=== PATIENT | female | born 1945 | race Caucasian/White ===

== ENCOUNTER 2016-04-25 22:08 | Observation (INO) | payer OTHER ==
[~2016-04-25 22:08] MED LIST: ACYC-1 PO; ANTISOL30 EACH EAR; ASPI81 PO; CALC600T10 PO; CORTIS10A RIGHT EAR; METO50 PO; SIMV20TA PO; TRAM50 PO; ZITH500T PO
[2016-04-25 22:19] VITALS: BP 122/66; PULSE 72; RESP 16; TEMP 98.6; O2SAT 97
[2016-04-25] MEDS ORDERED: MORPHINE SULFATE 4 MG/ML INJ IV PUSH ONE (22:45)
[2016-04-25] MEDS ORDERED: ONDANSETRON HCL 4 MG/2 ML VIAL IV PUSH ONE (22:45)
[2016-04-25] MEDS ORDERED: SODIUM CHLORID 0.9% 500 ML INJ 500 ML IV ONE (22:45)
[2016-04-25] MEDS ORDERED: DIATRIZOATE MEGLUM/DIATRIZOATE SOD 9 ML CUP ONE (22:54)
--- NOTE | 2016-04-25 22:56 | PD ---
HPI Chief Complaint: Fall Time Seen by Provider: 22:14 Travel History International Travel<30 days: No Contact w/Intl Traveler<30days: No Traveled to known affect area: No History of Present Illness HPI The patient is a 70-year-old female who presents emergency Department after syncopal episode. The patient states she felt "sick to my stomach", earlier today with nausea and was going to the bathroom to vomit, which she apparently had a syncopal episode. The family member states they saw the patient walking down the hallway, and that she fell forward, striking the right aspect of her abdomen and chest wall on the cooler, then falling to the ground. The patient did have a loss of consciousness that lasted for several seconds. The patient states she does not recall the events. She does complain of right chest wall pain and right rib pain, with mild nausea. The patient does have a history of multiple myeloma and is currently being treated by Dr. Espinosa for relapse of her multiple myeloma. She denies any headache, neck pain, or acute lower extremity pain. She does complain of chronic right leg pain. Symptoms are moderate, possibly exacerbated by pain and a syncopal episode. The patient denies any acute chest pain or shortness of breath. PFSH Past Medical History Arthritis: Yes (HANDS) Blood Disorders: No Cancer: Yes (skin, MULTILYNOMA) Cardiovascular Problems: No High Cholesterol: Yes Chemotherapy: Yes (REVLIMID ) Diabetes: Yes (BOARDER LINE) Diminished Hearing: No Endocrine: No Gastrointestinal Disorders: No Genitourinary: No Immune Disorder: No Implanted Vascular Access Dvce: No Musculoskeletal: Yes Neurologic: No Psychiatric: No Reproductive: No Respiratory: No Immunizations Current: No PNEUMOCCOCAL Vaccine (Year): 2 Menopausal: Yes : 3 Para: 3 Past Surgical History Joint Replacement: Yes (LEFT ELBOW PLATE) Neurologic Surgery: Yes Other Surgery: No Social History Alcohol Use: Yes (OCCASIONALLY WINE) Tobacco Use: No Substance Use: No Allergies-Medications (Allergen,Severity, Reaction): Coded Allergies: Penicillin (Verified Allergy, Severe, 04/25/16) Reported Meds & Prescriptions Reported Meds & Active Scripts Active Reported Zocor (Simvastatin) 20 Mg Tab 20 Mg PO DAILY Metoprolol Tartrate 50 Mg Tab 50 Mg PO BID Review of Systems Except as stated in HPI: all other systems reviewed are Neg General / Constitutional: No: Fever Cardiovascular: Positive: Chest Pain or Discomfort, Syncope Respiratory: No: Shortness of Breath Gastrointestinal: Positive: Nausea, Vomiting, Abdominal Pain Musculoskeletal: No: Weakness Neurologic: Positive: Syncope, No: Dizziness Hematologic/Lymphatic: Positive: Other (multiple myeloma) Physical Exam Narrative GENERAL: Awake, alert, pleasant 70-year-old female who appears her stated age and is in no acute respiratory distress. SKIN: Warm and dry. HEAD: Atraumatic. Normocephalic. EYES: No injection or drainage. ENT: No nasal bleeding or discharge. Mucous membranes pink and moist. NECK: Trachea midline. No JVD. CARDIOVASCULAR: Regular rate and rhythm. No murmur appreciated. Right chest wall is tender palpation. RESPIRATORY: No accessory muscle use. Clear to auscultation. Breath sounds equal bilaterally. GASTROINTESTINAL: Abdomen soft, obese, tender palpation right upper quadrant and right flank. MUSCULOSKELETAL: No obvious deformities. No clubbing. No cyanosis. No edema. Full range of motion of lower extremities. NEUROLOGICAL: Awake and alert. No obvious cranial nerve deficits. Motor grossly within normal limits. Normal speech. Nonfocal. PSYCHIATRIC: Appropriate mood and affect; insight and judgment normal. Data Data Last Documented VS Vital Signs Date Time Temp Pulse Resp B/P Pulse Ox O2 Delivery O2 Flow Rate FiO2 04/26/16 01:32 78 18 125/69 96 Nasal Cannula 2 04/25/16 22:19 98.6 Orders Complete Blood Count With Diff (04/25/16 22:37) Comprehensive Metabolic Panel (04/25/16 22:37) Ct Brain W/O Iv Contrast(Rout) (04/25/16 ) Chest, Single Ap (04/25/16 ) Urinalysis - C+S If Indicated (04/25/16 22:37) Morphine Inj (Morphine Inj) (04/25/16 22:45) Ondansetron Inj (Zofran Inj) (04/25/16 22:45) Sodium Chlorid 0.9% 500 Ml Inj (Ns 500 M (04/25/16 22:45) Oral Contrast - Adult (04/25/16 22:41) Diatrizoate Liq ( Gastroview Liq) (04/25/16 22:54) Electrocardiogram (04/25/16 ) Morphine Inj (Morphine Inj) (04/26/16 00:30) Morphine Inj (Morphine Inj) (04/26/16 00:30) Sodium Chlor 0.9% 1000 Ml Inj (Ns 1000 M (04/26/16 00:30) Ct Abd/Pel W/O Iv Contrast (04/25/16 ) Hydromorphone Pf Inj (Dilaudid Pf Inj) (04/26/16 01:30) Admit Order (Ed Use Only) (04/26/16 02:55) Place In Observation (04/26/16 ) Vital Signs (Adult) Q4H (04/26/16 02:53) Activity Oob With Assistance (04/26/16 02:53) Forensic Audit Expert / Telemetry .CONTINUOUS (04/26/16 02:53) Diet Heart Healthy (04/26/16 Breakfast) Sodium Chloride 0.9% Flush (Ns Flush) (04/26/16 03:00) Sodium Chloride 0.9% Flush (Ns Flush) (04/26/16 09:00) Basic Metabolic Panel (Bmp) (04/26/16 06:00) Enoxaparin Inj (Lovenox Inj) (04/26/16 09:00) Naloxone Inj (Narcan Inj) (04/26/16 03:00) Echo 2d Comp W/Dopp(Routine) (04/26/16 ) Us Carotid Arteries Comp Bilat (04/26/16 ) Labs Laboratory Tests Test 04/25/16 04/26/16 23:15 02:00 White Blood Count 7.5 TH/MM3 Red Blood Count 4.98 MIL/MM3 Hemoglobin 14.9 GM/DL Hematocrit 43.6 % Mean Corpuscular Volume 87.7 FL Mean Corpuscular Hemoglobin 29.9 PG Mean Corpuscular Hemoglobin 34.1 % Concent Red Cell Distribution Width 14.0 % Platelet Count 218 TH/MM3 Mean Platelet Volume 6.7 FL Neutrophils (%) (Auto) 63.5 % Lymphocytes (%) (Auto) 24.6 % Monocytes (%) (Auto) 7.4 % Eosinophils (%) (Auto) 3.7 % Basophils (%) (Auto) 0.8 % Neutrophils # (Auto) 4.7 TH/MM3 Lymphocytes # (Auto) 1.8 TH/MM3 Monocytes # (Auto) 0.6 TH/MM3 Eosinophils # (Auto) 0.3 TH/MM3 Basophils # (Auto) 0.1 TH/MM3 CBC Comment AUTO DIFF Differential Comment AUTO DIFF CONFIRMED Sodium Level 139 MEQ/L Potassium Level 5.7 MEQ/L Chloride Level 103 MEQ/L Carbon Dioxide Level 28.8 MEQ/L Anion Gap 7 MEQ/L Blood Urea Nitrogen 17 MG/DL Creatinine 0.86 MG/DL Estimat Glomerular Filtration 66 ML/MIN Rate Random Glucose 141 MG/DL Calcium Level 9.2 MG/DL Total Bilirubin 0.5 MG/DL Aspartate Amino Transf 63 U/L (AST/SGOT) Alanine Aminotransferase 45 U/L (ALT/SGPT) Alkaline Phosphatase 63 U/L Total Protein 7.9 GM/DL Albumin 4.1 GM/DL Urine Color LIGHT-YELLOW Urine Turbidity CLEAR Urine pH 6.5 Urine Specific [place] 1.011 Urine Protein NEG mg/dL Urine Glucose (UA) NEG mg/dL Urine Ketones NEG mg/dL Urine Occult Blood NEG Urine Nitrite NEG Urine Bilirubin NEG Urine Urobilinogen LESS THAN 2.0 MG/DL Urine Leukocyte Esterase NEG Urine RBC 1 /hpf Urine WBC LESS THAN 1 /hpf Urine Squamous Epithelial <1 /hpf Cells Microscopic Urinalysis Comment CATH-CULT NOT IND MDM Medical Decision Making Medical Screen Exam Complete: Yes Emergency Medical Condition: Yes Medical Record Reviewed: Yes Interpretation(s) EKG reveals normal sinus rhythm with a rate of 69. Q wave noted in lead 3. No evidence of WPW or Brugada. Differential Diagnosis Differential diagnosis includes syncopal episode, arrhythmia, vasovagal syncope , dehydration, neurocardiogenic syncope, rib fracture, pneumothorax, hemothorax , pelvic contusion, intra-abdominal injury. Narrative Course IV was established, labs are drawn and sent, and the patient was placed on cardiac telemetry monitoring and continuous pulse oximetry monitoring. EKG was ordered and interpreted. CT the brain and abdomen/pelvis were ordered. Chest x -ray was ordered. The patient was administered morphine, Zofran, and IV fluids. Labs are unremarkable except for potassium of 5.7, however, slight hemolysis was noted. Chest x-ray reveals questionable myeloma involving the fifth right rib. The patient required a second dose of pain medication, therefore, was given another dose of morphine with 1 L of IV fluids. The patient did have a syncopal episode, therefore, will need 23 hour observation for echocardiogram and telemetry monitoring. The patient was signed out to Dr. Whalen at [address] abdomen and pelvis pending. A CT abdomen and pelvis is negative for significant trauma patient can be admitted to the medical service. The patient has [employer] and is followed by Dr. Strange, therefore, should be 23 hour observation to [facility]. I did place a call to [facility] for 23 hour observation for syncope, prior to CT results. I signed the patient out to Dr. Whalen at [address] abdomen/pelvis as well as CT head results pending. He will follow-up on CT results and call consultants if necessary if there are any significant findings. I discussed the patient with Dr. Elaine at 1:05 AM, she will make the patient a [address] results are negative. Dr. Whalen was notified of this, it CTs are negative, a call will be placed to Dr. Elaine and the patient will be a 23 hour observation. Physician Communication Physician Communication A call was placed to [facility] for 23 hour observation. Diagnosis Primary Impression: Syncope Qualified Code: R55 - Syncope, unspecified syncope type Additional Impression: Right flank pain Admitting Information Admitting Physician Requests: Observation Condition: Stable Homero Forrest MD Apr 25, 2016 22:56
--- NOTE | 2016-04-25 23:01 | RADRPT ---
EXAM DATE/TIME: 04/25/2016 22:53 [facility] COMPARISON: CHEST SINGLE AP, January 17, 2012, 11:54. INDICATIONS : Pain from falling on floor and vomitting. MEDICAL HISTORY : Multiple myeloma. SURGICAL HISTORY : None. ENCOUNTER: Initial ACUITY: 1 day PAIN SCORE: 10/10 LOCATION: Right lower chest axillary. FINDINGS: The cardiac silhouette is enlarged in transverse diameter. The lungs are free of acute parenchymal op acity. No effusions are identified. There is an expansile lesion in the anterior right fifth rib whic h may reflect myeloma. CONCLUSION: 1. Cardiomegaly. No acute pulmonary disease. Possible myeloma involving the right fifth rib. Kevon Russell MD on April 25, 2016 at 22:58 Board Certified Radiologist. This report was verified electronically.
[2016-04-25 23:29] LABS: AUTOMATED NEUTROPHIL # 4.7 TH/MM3 (1.8-7.7); BASOPHIL # 0.1 TH/MM3 (0-0.2); BASOPHIL % 0.8 % (0.0-2.0); EOSINOPHIL # 0.3 TH/MM3 (0-0.4); EOSINOPHIL % 3.7 % (0.0-4.0); HEMATOCRIT 43.6 % (35.0-46.0); LYMPH % 24.6 % (9.0-44.0); LYMPHOCYTE # 1.8 TH/MM3 (1.0-4.8); MEAN CELL VOLUME 87.7 FL (80.0-100.0); MEAN CORPUSCULAR HEMOGLOBIN 29.9 PG (27.0-34.0); MEAN CORPUSCULAR HGB CONC 34.1 % (32.0-36.0); MONO % 7.4 % (0.0-8.0); NEUT % 63.5 % (16.0-70.0); PLATELET COUNT 218 TH/MM3 (150-450); RED BLOOD COUNT 4.98 MIL/MM3 (4.00-5.30); WHITE BLOOD COUNT 7.5 TH/MM3 (4.0-11.0)
[2016-04-25 23:46] LABS: HEMO FLAGS AUTO DIFF
[2016-04-25 23:51] LABS: ALKALINE PHOSPHATASE 63 U/L (45-117); TOTAL BILIRUBIN ADULT 0.5 MG/DL (0.2-1.0)
[2016-04-26] VITALS (14 sets, daily range): BP systolic 98–125; BP diastolic 55–78; PULSE 73–111; RESP 16–21; TEMP 97.4–98.7; O2SAT 89–98
[2016-04-26] LABS: ALT (GPT) 45 U/L (10-53); ANION GAP 7 MEQ/L (5-15); AST (GOT) 63 U/L (15-37); BICARBONATE 28.8 MEQ/L (21.0-32.0); BLOOD UREA NITROGEN 17 MG/DL (7-18); CHLORIDE 103 MEQ/L (98-107); GLOMERULAR FILTRATION RATE 66 ML/MIN (>89); SODIUM (NA) 139 MEQ/L (136-145)
[2016-04-26 00:18] LABS: POTASSIUM 5.7 MEQ/L (3.5-5.1)
[2016-04-26 00:24] LABS: SCAN/DIFF AUTO DIFF CONFIRMED
[2016-04-26] MEDS ORDERED: MORPHINE SULFATE 4 MG/ML INJ IV PUSH ONE ×2 (00:30)
[2016-04-26] MEDS ORDERED: SODIUM CHLOR 0.9% 1000 ML INJ 1,000 ML IV ONE (00:30)
[2016-04-26] MEDS ORDERED: ZOCO20TA PO (00:36)
[2016-04-26] MEDS ORDERED: METO50TA PO (00:36)
--- NOTE | 2016-04-26 01:08 | RADRPT ---
EXAM DATE/TIME: 04/26/2016 00:57 [facility] COMPARISON: No previous studies available for comparison. EXTERNAL COMPARISON : [facility], INDICATIONS : Trauma; fall. RADIATION DOSE: 62.08 CTDIvol (mGy) MEDICAL HISTORY : Hypercholesterolemia. Multiple myeloma SURGICAL HISTORY : Kyphoplasty. ENCOUNTER: Initial ACUITY: 1 day PAIN SCALE: 10/10 LOCATION: cranial TECHNIQUE: Multiple contiguous axial images were obtained of the head. Using automated exposure control and adj ustment of the mA and/or kV according to patient size, radiation dose was kept as low as reasonably a chievable to obtain optimal diagnostic quality images. FINDINGS: Noncontrast axial head CT demonstrates the ventricles to be normal in size and configuration with a n ormal sulcal pattern. No acute intracranial hemorrhage, acute cortical infarction, mass or midline sh ift is seen. Posterior fossa structures are unremarkable. Bone windows subcentimeter lucencies in the right calvarium which may reflect myeloma. CONCLUSION: 1. No evidence of acute intracranial pathology. No masses are identified. 2. Possible myeloma within the skull Kevon Russell MD on April 26, 2016 at 1:05 Board Certified Radiologist. This report was verified electronically.
[2016-04-26] MEDS ORDERED: HYDROmorphone HCL PF 1 MG/ML VIAL IV PUSH ONE (01:30)
--- NOTE | 2016-04-26 01:32 | RADRPT ---
EXAM DATE/TIME: 04/26/2016 01:01 [facility] COMPARISON: No previous studies available for comparison. EXTERNAL COMPARISON : [facility], INDICATIONS : Trauma; fall. Patient complains of right hip pain. ORAL CONTRAST: Prescribed oral contrast ingested. RADIATION DOSE: 21.31 CTDIvol (mGy) MEDICAL HISTORY : Hypercholesterolemia. Multiple myeloma SURGICAL HISTORY : Kyphoplasty. ENCOUNTER: Initial ACUITY: 1 day PAIN SCALE: 10/10 LOCATION: abdomen TECHNIQUE: Volumetric scanning of the abdomen and pelvis was performed. Using automated exposure control and ad justment of the mA and/or kV according to patient size, radiation dose was kept as low as reasonably achievable to obtain optimal diagnostic quality images. FINDINGS: Multiple calcified granulomas are present in the right lung. Calcified mediastinal nodes are also pre sent. The liver and spleen are normal in size and no focal defects are identified. There is a single stone within the gallbladder without wall thickening or pericholecystic fluid measuring 5 mm in the n lupe. The pancreas demonstrates no evidence of mass and there is no dilatation of the pancreatic duct. The adrenal glands and kidneys appear normal bilaterally. No hydronephrosis or mass lesions are iden tified. Examination of the pelvis demonstrates no evidence of free fluid or pelvic mass. No abnormally enlarg ed inguinal or retroperitoneal lymph nodes are present. The bladder is unremarkable. There is diverti culosis without evidence of diverticulitis. There is expansile lesion in the posterior aspect of the left eighth rib as well as lucencies in the L5 vertebral body and sclerosis in the T12 vertebral body characteristic of myeloma. Other old rib fr actures are also present. CONCLUSION: 1. No evidence of acute abdominal or pelvic process. No masses are identified. 2. Cholelithiasis 3. Findings of myeloma without acute fracture Kevon Russell MD on April 26, 2016 at 1:24 Board Certified Radiologist. This report was verified electronically.
[2016-04-26 02:26] LABS: BLOOD, URINE NEG (NEG); GLUCOSE,URINE NEG (NEG); KETONE, URINE NEG (NEG); NITRITE,URINE NEG (NEG); PH, URINE 6.5 (5.0-8.5); SQUAMOUS EPITHELIAL CELL URINE <1 /hpf (0-5); URINE COLOR LIGHT-YELLOW (YELLW/STRAW)
[2016-04-26 02:28] LABS: COMMENT (UR) CATH-CULT NOT IND; CULTURE IF INDICATED CATH CULTURE NOT IND
[2016-04-26] MEDS ORDERED: NALOXONE HCL 0.4 MG/ML AMP IV PRN (03:00)
[2016-04-26] MEDS ORDERED: SODIUM CHLORIDE 0.9% FLUSH 5 ML FLUSH FLUSH PRN (03:00)
--- NOTE | 2016-04-26 03:17 | PD ---
Data Data Last Documented VS Vital Signs Date Time Temp Pulse Resp B/P Pulse Ox O2 Delivery O2 Flow Rate FiO2 04/26/16 01:32 78 18 125/69 96 Nasal Cannula 2 04/25/16 22:19 98.6 Orders Complete Blood Count With Diff (04/25/16 22:37) Comprehensive Metabolic Panel (04/25/16 22:37) Ct Brain W/O Iv Contrast(Rout) (04/25/16 ) Chest, Single Ap (04/25/16 ) Urinalysis - C+S If Indicated (04/25/16 22:37) Morphine Inj (Morphine Inj) (04/25/16 22:45) Ondansetron Inj (Zofran Inj) (04/25/16 22:45) Sodium Chlorid 0.9% 500 Ml Inj (Ns 500 M (04/25/16 22:45) Oral Contrast - Adult (04/25/16 22:41) Diatrizoate Liq ( Gastroview Liq) (04/25/16 22:54) Electrocardiogram (04/25/16 ) Morphine Inj (Morphine Inj) (04/26/16 00:30) Morphine Inj (Morphine Inj) (04/26/16 00:30) Sodium Chlor 0.9% 1000 Ml Inj (Ns 1000 M (04/26/16 00:30) Ct Abd/Pel W/O Iv Contrast (04/25/16 ) Hydromorphone Pf Inj (Dilaudid Pf Inj) (04/26/16 01:30) Admit Order (Ed Use Only) (04/26/16 02:55) Place In Observation (04/26/16 ) Vital Signs (Adult) Q4H (04/26/16 02:53) Activity Oob With Assistance (04/26/16 02:53) Financial Services Agent / Telemetry .CONTINUOUS (04/26/16 02:53) Diet Heart Healthy (04/26/16 Breakfast) Sodium Chloride 0.9% Flush (Ns Flush) (04/26/16 03:00) Sodium Chloride 0.9% Flush (Ns Flush) (04/26/16 09:00) Basic Metabolic Panel (Bmp) (04/26/16 06:00) Enoxaparin Inj (Lovenox Inj) (04/26/16 09:00) Naloxone Inj (Narcan Inj) (04/26/16 03:00) Echo 2d Comp W/Dopp(Routine) (04/26/16 ) Us Carotid Arteries Comp Bilat (04/26/16 ) Labs Laboratory Tests Test 04/25/16 04/26/16 23:15 02:00 White Blood Count 7.5 TH/MM3 Red Blood Count 4.98 MIL/MM3 Hemoglobin 14.9 GM/DL Hematocrit 43.6 % Mean Corpuscular Volume 87.7 FL Mean Corpuscular Hemoglobin 29.9 PG Mean Corpuscular Hemoglobin 34.1 % Concent Red Cell Distribution Width 14.0 % Platelet Count 218 TH/MM3 Mean Platelet Volume 6.7 FL Neutrophils (%) (Auto) 63.5 % Lymphocytes (%) (Auto) 24.6 % Monocytes (%) (Auto) 7.4 % Eosinophils (%) (Auto) 3.7 % Basophils (%) (Auto) 0.8 % Neutrophils # (Auto) 4.7 TH/MM3 Lymphocytes # (Auto) 1.8 TH/MM3 Monocytes # (Auto) 0.6 TH/MM3 Eosinophils # (Auto) 0.3 TH/MM3 Basophils # (Auto) 0.1 TH/MM3 CBC Comment AUTO DIFF Differential Comment AUTO DIFF CONFIRMED Sodium Level 139 MEQ/L Potassium Level 5.7 MEQ/L Chloride Level 103 MEQ/L Carbon Dioxide Level 28.8 MEQ/L Anion Gap 7 MEQ/L Blood Urea Nitrogen 17 MG/DL Creatinine 0.86 MG/DL Estimat Glomerular Filtration 66 ML/MIN Rate Random Glucose 141 MG/DL Calcium Level 9.2 MG/DL Total Bilirubin 0.5 MG/DL Aspartate Amino Transf 63 U/L (AST/SGOT) Alanine Aminotransferase 45 U/L (ALT/SGPT) Alkaline Phosphatase 63 U/L Total Protein 7.9 GM/DL Albumin 4.1 GM/DL Urine Color LIGHT-YELLOW Urine Turbidity CLEAR Urine pH 6.5 Urine Specific [place] 1.011 Urine Protein NEG mg/dL Urine Glucose (UA) NEG mg/dL Urine Ketones NEG mg/dL Urine Occult Blood NEG Urine Nitrite NEG Urine Bilirubin NEG Urine Urobilinogen LESS THAN 2.0 MG/DL Urine Leukocyte Esterase NEG Urine RBC 1 /hpf Urine WBC LESS THAN 1 /hpf Urine Squamous Epithelial <1 /hpf Cells Microscopic Urinalysis Comment CATH-CULT NOT IND MDM Medical Record Reviewed: Yes Supervised Visit with KIERRA: No Narrative Course CBC & BMP Diagram 04/25/16 23:15 AST 63 LFTs otherwise normal Potassium 5.7 with hemolysis Last [address] 04/25/16 0000 Signed Impressions: Service Date/Time: Tuesday, April 26, 2016 00:57 - CONCLUSION: 1. No evidence of acute intracranial pathology. No masses are identified. 2. Possible myeloma within the skull Kevon Russell MD Chest X-Ray 04/25/16 0000 Signed Impressions: Service Date/Time: Monday, April 25, 2016 22:53 - CONCLUSION: 1. Cardiomegaly. No acute pulmonary disease. Possible myeloma involving the right fifth rib. Kevon Russell MD Abdomen/Pelvis CT 04/25/16 0000 Signed Impressions: Service Date/Time: Tuesday, April 26, 2016 01:01 - CONCLUSION: 1. No evidence of acute abdominal or pelvic process. No masses are identified. 2. Cholelithiasis 3. Findings of myeloma without acute fracture Kevon Russell MD Please refer to prior provider's documentation. Pt to be admitted d/w Dr Elaine. Diagnosis Primary Impression: Syncope Qualified Code: R55 - Syncope, unspecified syncope type Additional Impression: Right flank pain Admitting Information Admitting Physician Requests: Observation Condition: Stable Bill Whalen MD Apr 26, 2016 03:17
--- NOTE | 2016-04-26 08:56 | HHI.HP ---
[facility] Service [facility] Primary Care Physician Brianna Posey MD Admission Diagnosis Syncope, MM, Fall, R CP Diagnoses: Chief Complaint: syncope Travel History International Travel<30 Days: No Contact w/Intl Traveler <30 Da: No Traveled to Known Affected Are: No History of Present Illness 70-year-old female with history of multiple myeloma, arthritis, diet-controlled diabetes, hypertension, hyperlipidemia, and hx of PE s/p Warfarin, presents after syncopal episode. The patient reports yesterday she was out with girlfriends, had a glass of wine earlier in the day then also had a few cocktails at [employer], returned to the hotel, felt nauseous, went to the bathroom to vomit, then her friends saw her walking down the hallway to the bathroom when she fell forward and lost consciousness. The last the patient remembers is walking down the hallway then afterwards vomiting in the ambulance on her way to the ER. She reportedly hit her chest on a cooler. Denies hitting her head. Currently she complains of severe diffuse anterior chest pain, with difficulty breathing secondary to the pain, pain worsened by any palpation, movement, or deep inspiration. Denies any recent fevers/chills, cough, congestions. Denies any lightheadedness or dizziness. Since her arrival to the ER, she has been hypoxic with O2 sat 85% on room air, requiring 4L NC with O2 sat now 95%. She denies any history of asthma or COPD. The patient admits she is not taking deep breaths because of the pain. The patient reports a history of PE, was on Warfarin in the past. Denies history of CAD, MS, CHF. She has no other medical complaints at this time. Review of Systems Constitutional: DENIES: Fever, Chills, Dizziness Endocrine: DENIES: Polydipsia, Polyuria, Polyphagia Eyes: DENIES: Blurred vision, Diplopia, Double Vision Ears, nose, mouth, throat: DENIES: Ear Pain, Running Nose, Odynophagia Respiratory: COMPLAINS OF: Shortness of breath, DENIES: Cough, Wheezing Cardiovascular: COMPLAINS OF: Chest pain, Syncope, DENIES: Palpitations, Dyspnea on Exertion, Lower Extremity Edema Gastrointestinal: COMPLAINS OF: Nausea, Vomiting, DENIES: Abdominal pain, Constipation, Diarrhea Genitourinary: DENIES: Urinary frequency, Urgency, Dysuria Musculoskeletal: DENIES: Joint pain, Back pain, Neck pain Integumentary: DENIES: Abnormal pigmentation, Pruritus, Rash Hematologic/lymphatic: DENIES: Bruising, Lymphadenopathy Immunologic/allergic: DENIES: Eczema, Urticaria Neurologic: DENIES: Abnormal gait, Headache, Localized weakness Psychiatric: DENIES: Anxiety, Depression Past Family Social History Past Medical History multiple myeloma arthritis diet-controlled diabetes hypertension hyperlipidemia pulmonary embolism, completed treatment with Warfarin Past Surgical History left elbow plate Reported Medications Zocor (Simvastatin) 20 Mg Tab 20 Mg PO DAILY Metoprolol Tartrate 50 Mg Tab 50 Mg PO BID Allergies: Coded Allergies: Penicillin (Verified Allergy, Severe, 04/25/16) Active Ordered Medications Current Medications Medications (Trade) Dose Ordered Sig/Jess Route Start Time Stop Time Status Last Admin (NS Flush) 2 ml UNSCH PRN FLUSH 04/26/16 03:00 (NS Flush) 2 ml BID FLUSH 04/26/16 09:00 04/26/16 09:00 (Lovenox Inj) 40 mg Q24H SQ 04/26/16 09:00 (Narcan Inj) 0.4 mg UNSCH PRN IV 04/26/16 03:00 Family History Mother with uterine cancer Father with prostate cancer, heart disease started in his mid-50s Social History Drinks occasional wine/cocktails, not a daily drinker Denies any tobacco use Denies any illicit drug use Physical Exam Vital Signs Vital Signs Date Time Temp Pulse Resp B/P Pulse Ox O2 Delivery O2 Flow Rate FiO2 04/26/16 07:41 95 Nasal Cannula 4.00 04/26/16 07:29 97.4 73 18 108/59 89 04/26/16 06:09 97.8 74 21 115/66 98 04/26/16 03:59 89 18 117/78 98 Nasal Cannula 2 04/26/16 01:32 78 18 125/69 96 Nasal Cannula 2 04/26/16 00:23 73 16 104/58 98 Room Air 04/25/16 22:19 98.6 72 16 122/66 97 Physical Exam GENERAL: Well-nourished, well-developed pleasant female patient in [facility]. SKIN: Warm and dry. No rash. HEAD: Normocephalic. Atraumatic. EYES: Pupils equal and round. No scleral icterus. No injection or drainage. ENT: No nasal bleeding or discharge. Mucous membranes pink and moist. NECK: Supple. Trachea midline. CARDIOVASCULAR: Regular rate and rhythm. S1, S2 noted. No murmur appreciated. Diffuse anterior chest TTP. RESPIRATORY: No accessory muscle use. Clear to auscultation. Breath sounds equal bilaterally. GASTROINTESTINAL: Abdomen soft, non-tender, nondistended. Normoactive bowel sounds x4. MUSCULOSKELETAL: No obvious deformities. Extremities without clubbing, cyanosis , or edema. NEUROLOGICAL: Awake and alert. No obvious cranial nerve deficits. Motor grossly within normal limits. Normal speech. PSYCHIATRIC: Appropriate mood and affect; insight and judgment normal. Laboratory Laboratory Tests Test 04/25/16 04/26/16 23:15 02:00 White Blood Count 7.5 Red Blood Count 4.98 Hemoglobin 14.9 Hematocrit 43.6 Mean Corpuscular Volume 87.7 Mean Corpuscular Hemoglobin 29.9 Mean Corpuscular Hemoglobin 34.1 Concent Red Cell Distribution Width 14.0 Platelet Count 218 Mean Platelet Volume 6.7 Neutrophils (%) (Auto) 63.5 Lymphocytes (%) (Auto) 24.6 Monocytes (%) (Auto) 7.4 Eosinophils (%) (Auto) 3.7 Basophils (%) (Auto) 0.8 Neutrophils # (Auto) 4.7 Lymphocytes # (Auto) 1.8 Monocytes # (Auto) 0.6 Eosinophils # (Auto) 0.3 Basophils # (Auto) 0.1 CBC Comment AUTO DIFF Differential Comment AUTO DIFF CONFIRMED Sodium Level 139 Potassium Level 5.7 Chloride Level 103 Carbon Dioxide Level 28.8 Anion Gap 7 Blood Urea Nitrogen 17 Creatinine 0.86 Estimat Glomerular Filtration 66 Rate Random Glucose 141 Calcium Level 9.2 Total Bilirubin 0.5 Aspartate Amino Transf 63 (AST/SGOT) Alanine Aminotransferase 45 (ALT/SGPT) Alkaline Phosphatase 63 Total Protein 7.9 Albumin 4.1 Urine Color LIGHT-YELLOW Urine Turbidity CLEAR Urine pH 6.5 Urine Specific [place] 1.011 Urine Protein NEG Urine Glucose (UA) NEG Urine Ketones NEG Urine Occult Blood NEG Urine Nitrite NEG Urine Bilirubin NEG Urine Urobilinogen LESS THAN 2.0 Urine Leukocyte Esterase NEG Urine RBC 1 Urine WBC LESS THAN 1 Urine Squamous Epithelial <1 Cells Microscopic Urinalysis Comment CATH-CULT NOT IND Result Diagram: 04/25/16231404/25/162314 Imaging Last Impressions Ribs X-Ray 04/26/16 0000 Signed Impressions: Service Date/Time: Tuesday, April 26, 2016 08:24 - CONCLUSION: There are nonacute and substantially healed bilateral rib fractures as above. No perceptible acute rib fracture. No pneumothorax. Marc Leonardo MD Head CT 04/25/16 0000 Signed Impressions: Service Date/Time: Tuesday, April 26, 2016 00:57 - CONCLUSION: 1. No evidence of acute intracranial pathology. No masses are identified. 2. Possible myeloma within the skull Kevon Russell MD Chest X-Ray 04/25/16 0000 Signed Impressions: Service Date/Time: Monday, April 25, 2016 22:53 - CONCLUSION: 1. Cardiomegaly. No acute pulmonary disease. Possible myeloma involving the right fifth rib. Kevon Russell MD Abdomen/Pelvis CT 04/25/16 0000 Signed Impressions: Service Date/Time: Tuesday, April 26, 2016 01:01 - CONCLUSION: 1. No evidence of acute abdominal or pelvic process. No masses are identified. 2. Cholelithiasis 3. Findings of myeloma without acute fracture Kevon Russell MD Assessment and Plan Problem List: (1) Syncope ICD Code: R55 Status: Acute (2) Atypical chest pain ICD Code: R07.89 Status: Acute (3) Rib contusion ICD Code: S20.219A Status: Acute Assessment and Plan 70-year-old female with history of multiple myeloma, arthritis, diet-controlled diabetes, hypertension, hyperlipidemia, and hx of PE completed treatment with Warfarin, presents after syncopal episode on 04/25. Syncope: possibly related to alcohol intoxication however need to rule out other etiologies. Images reviewed: Head CT unremarkable. CXR with possible myeloma involving right 5th rib. Abd/pelvis CT with no acute findings. Check echocardiogram, Carotid U/S. Monitor on telemetry. Check orthostatics. Atypical Chest Pain: secondary to syncopal event as above, patient struck chest on cooler. Pain reproducible on exam. Rib xray with nonacute and substantially healed b/l rib fractures, no acute fractures. Pain control with [place] prn. Monitor on telemetry. Acute Hypoxic Respiratory Failure: O2 sat decreasing to 85% on room air, suspect secondary to poor inspiratory effort related to chest pain. Continue O2 for now, consider NRB if patient continues to desaturate. Duonebs q6h. Consider walk test tomorrow. With hx of PE, active multiple myeloma, chest pain, and hypoxia, will check CT-PA to rule out PE. Hyperkalemia: K 5.7, likely secondary to hemolysis. Repeat K 4.1. Resolved. Hypertension: chronic, continue patient's metoprolol. Hyperlipidemia: chronic, continue patient's statin. DVT Prophylaxis: teds/SCDs Written by Sailaja Sullivan, acting as scribe for Dr. Gill on 04/26/16 at 08:55. The documentation accurately reflects the work performed [id number] by me on at 08:55. Code Status Full Code Problem Qualifiers (1) Syncope: Qualified Code: R55 - Syncope, unspecified syncope type Sailaja Sullivan PA-C Apr 26, 2016 08:56 Lara Gill DO Apr 26, 2016 20:47
[2016-04-26] MEDS: RESP: ALBUTEROL 2.5 MG/IPRATROPIUM 0.5 MG NEB (SCH) NEB ×3 (08:59→20:39)
--- NOTE | 2016-04-26 08:59 | RADRPT ---
EXAM DATE/TIME: 04/26/2016 08:24 [facility] COMPARISON: CHEST SINGLE AP, April 25, 2016, 22:53. INDICATIONS : Bilateral rib pain post fall from standing height yesterday MEDICAL HISTORY : None. SURGICAL HISTORY : None. 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 I don't see an acute fracture. No pneumothorax is seen. CONCLUSION: There are nonacute and substantially healed bilateral rib fractures as above. No perceptible acute ri b fracture. No pneumothorax. Marc Leonardo MD on April 26, 2016 at 8:56 Board Certified Radiologist. This report was verified electronically.
[2016-04-26] MEDS: SODIUM CHLORIDE 0.9% FLUSH 5 ML FLUSH FLUSH SCH ×2 (09:00→21:09)
[2016-04-26] MEDS: ENOXAPARIN SODIUM 40 MG/0.4 ML SYRINGE SQ SCH (09:00)
[2016-04-26 10:34] LABS: BICARBONATE 27.9 MEQ/L (21.0-32.0); POTASSIUM 4.1 MEQ/L (3.5-5.1)
[2016-04-26] MEDS ORDERED: ACETAMINOPHEN 325 MG TAB PO PRN (12:45)
[2016-04-26] MEDS ORDERED: IOHEXOL 350 MG/ML 10 ML VIAL (for RAD DIAG) IV ONE (15:46)
--- NOTE | 2016-04-26 15:59 | EKG ---
Date Performed: 04/25/2016 Time Performed: 23:38:08 PTAGE: 70 years EKG: Sinus rhythm LOW QRS VOLTAGE IN PRECORDIAL LEADS When compared to previous tracing, QRS voltage is lower in Preco rdial leads, otherwise no significant change. BORDERLINE ECG PREVIOUS TRACING : 01/17/2012 12.13 DOCTOR: Mitchel Nicole Interpretating Date/Time 04/26/2016 15:57:08
--- NOTE | 2016-04-26 16:01 | RADRPT ---
EXAM DATE/TIME: 04/26/2016 15:39 [facility] COMPARISON: No previous studies available for comparison. INDICATIONS : Right side chest pain. IV CONTRAST: 75 cc Omnipaque 350 (iohexol) IV RADIATION DOSE: 23.01 CTDIvol (mGy) MEDICAL HISTORY : Diabetes mellitus type 2. Multiple myeloma, skin cancer. SURGICAL HISTORY : Kyphoplasty. ENCOUNTER: Initial ACUITY: 3 days PAIN SCALE: 5/10 LOCATION: Right chest TECHNIQUE: Volumetric scanning of the chest was performed using a pulmonary embolism protocol MIP images were re constructed. Using automated exposure control and adjustment of the mA and/or kV according to patien t size, radiation dose was kept as low as reasonably achievable to obtain optimal diagnostic quality images. FINDINGS: Contrast bolus is suboptimal but no central pulmonary emboli identified. There are several acute lower right anterior rib fractures in the area of chest pain. There is a heal ing left posterior rib fracture. Dependent atelectasis is present in both lungs. No significant pleural or pericardial effusion. No ad enopathy. No acute findings in the visualized upper abdomen. CONCLUSION: 1. Multiple acute right anterior rib fractures in the area of chest pain. Remote healing bilateral ri b fractures also present. 2. Contrast bolus suboptimal but no central pulmonary emboli identified. No effusions. Dependent atel ectasis in the lungs. Calcified granulomata in the lungs. Chase Steen MD on April 26, 2016 at 15:55 Board Certified Radiologist. This report was verified electronically.
[2016-04-26] MEDS: ACETAMINOPHEN/HYDROcodone 325 MG/7.5 MG TAB PO PRN (18:35)
--- NOTE | 2016-04-26 19:25 | RADRPT ---
EXAM DATE/TIME: 04/26/2016 17:41 [facility] COMPARISON: No previous studies available for comparison. INDICATIONS : Syncope. MEDICAL HISTORY : Hypercholesterolemia. Arthritis. Diabetes. Skin cancer. Chemotherapy. SURGICAL HISTORY : Kyphoplasty. Left elbow surgery. ENCOUNTER: Initial ACUITY: 1 day PAIN SCORE: 0/10 LOCATION: Bilateral neck PEAK SYSTOLIC VELOCITIES (cm/sec): ICA/CCA RATIO: Right: 1.4 Left: 1.0 ICA: Right: 163 Left: 143 CCA: Right: 117 Left: 139 ECA: Right: 141 Left: 112 VERTEBRAL: Right: 70 antegrade Left: 66 antegrade Elevated flow velocities and ICA/CCA ratios have been found to correlate with increased degrees of vessel stenosis, calculated as percentage of diameter relative to a normal segment of distal ICA/CCA FINDINGS: RIGHT CAROTID: No significant stenosis is visualized. The waveforms are within normal limits. LEFT CAROTID: No significant stenosis is visualized. The waveforms are within normal limits. VERTEBRAL ARTERIES: Antegrade flow is seen in both vertebral arteries. MISCELLANEOUS: None. CONCLUSION: 1. There is mild to moderate visible plaque formation around the carotid bifurcations. No hemodynamic ally significant stenosis. Vertebral artery flow antegrade bilaterally. Chase Steen MD on April 26, 2016 at 19:21 Board Certified Radiologist. This report was verified electronically.
[2016-04-26] MEDS: MELOXICAM 7.5 MG TAB PO SCH (21:09)
[2016-04-27] MEDS: ACETAMINOPHEN/HYDROcodone 325 MG/7.5 MG TAB PO PRN (00:29)
[2016-04-27 03:28] VITALS: BP 106/59; PULSE 71; RESP 19; TEMP 98.2; O2SAT 97
[2016-04-27] MEDS: RESP: ALBUTEROL 2.5 MG/IPRATROPIUM 0.5 MG NEB (SCH) NEB ×2 (07:47→14:10)
[2016-04-27 07:51] VITALS: O2SAT 91
[2016-04-27 07:55] VITALS: BP 130/60; PULSE 86; RESP 18; O2SAT 93
[2016-04-27 08:30] LABS: HDL CHOLESTEROL 64.3 MG/DL (40.0-60.0)
[2016-04-27] MEDS ORDERED: CYCLOBENZAPRINE HCL 10 MG TAB PO ONE (08:30)
--- NOTE | 2016-04-27 08:35 | HHI.PR ---
Subjective Remarks Follow up for syncope, fall, rib fractures. The patient reports continued pain at the right anterior chest with associated muscle spasms, requesting a muscle relaxer. The norco is also helping with the pain. The patient states she has intermittently been taking off her O2, currently O2 sat is 97% on 2L NC. She has been ambulating without assistance. She wants to go home. She has no other medical complaints at this time. The patient reports her old rib fractures were from tripping over a tree stump and falling 10years ago. Objective Vitals Vital Signs Date Time Temp Pulse Resp B/P Pulse Ox O2 Delivery O2 Flow Rate FiO2 04/27/16 07:55 86 18 130/60 93 04/27/16 07:51 91 21 04/27/16 03:28 98.2 71 19 106/59 97 04/26/16 21:23 109 107/58 119/59 120/67 04/26/16 21:10 111 94 04/26/16 21:00 94 Humidified 3.00 04/26/16 20:40 96 Nasal Cannula 3.00 04/26/16 20:10 96 04/26/16 19:52 103 04/26/16 19:28 98.2 103 19 106/58 93 04/26/16 17:03 98.7 104 18 119/55 93 04/26/16 10:44 97.6 81 18 98/56 95 I/O 04/26/16 04/26/16 04/26/16 04/27/16 04/27/16 04/27/16 07:00 15:00 23:00 07:00 15:00 23:00 Output Total 250 ml Balance -250 ml Output Urine Total 250 ml # Voids 1 5 Result Diagram: 04/25/16 2315 04/26/16 0945 Imaging Last Impressions Ribs X-Ray 04/26/16 0000 Signed Impressions: Service Date/Time: Tuesday, April 26, 2016 08:24 - CONCLUSION: There are nonacute and substantially healed bilateral rib fractures as above. No perceptible acute rib fracture. No pneumothorax. Marc Leonardo MD Carotid Artery Ultrasound 04/26/16 0000 Signed Impressions: Service Date/Time: Tuesday, April 26, 2016 17:41 - CONCLUSION: 1. There is mild to moderate visible plaque formation around the carotid bifurcations. No hemodynamically significant stenosis. Vertebral artery flow antegrade bilaterally. Chase Steen MD CT Angiography 04/26/16 0000 Signed Impressions: Service Date/Time: Tuesday, April 26, 2016 15:39 - CONCLUSION: 1. Multiple acute right anterior rib fractures in the area of chest pain. Remote healing bilateral rib fractures also present. 2. Contrast bolus suboptimal but no central pulmonary emboli identified. No effusions. Dependent atelectasis in the lungs. Calcified granulomata in the lungs. Chase Steen MD Head CT 04/25/16 0000 Signed Impressions: Service Date/Time: Tuesday, April 26, 2016 00:57 - CONCLUSION: 1. No evidence of acute intracranial pathology. No masses are identified. 2. Possible myeloma within the skull Kevon Russell MD Chest X-Ray 04/25/16 0000 Signed Impressions: Service Date/Time: Monday, April 25, 2016 22:53 - CONCLUSION: 1. Cardiomegaly. No acute pulmonary disease. Possible myeloma involving the right fifth rib. Kevon Russell MD Abdomen/Pelvis CT 04/25/16 0000 Signed Impressions: Service Date/Time: Tuesday, April 26, 2016 01:01 - CONCLUSION: 1. No evidence of acute abdominal or pelvic process. No masses are identified. 2. Cholelithiasis 3. Findings of myeloma without acute fracture Kevon Rusesll MD Objective Remarks GENERAL: Well-nourished, well-developed pleasant female patient in [facility]. Ambulating the hallway. SKIN: Warm and dry. No rash. HEENT: Normocephalic. Atraumatic. Pupils equal and round. No scleral icterus. No injection or drainage. Mucous membranes pink and moist. NECK: Supple. Trachea midline. CARDIOVASCULAR: Regular rate and rhythm. S1, S2 noted. No murmur appreciated. Diffuse right anterior chest TTP. RESPIRATORY: No accessory muscle use. Clear to auscultation. Breath sounds equal bilaterally. GASTROINTESTINAL: Abdomen soft, non-tender, nondistended. Normoactive bowel sounds x4. MUSCULOSKELETAL: No obvious deformities. Extremities without clubbing, cyanosis , or edema. NEUROLOGICAL: Awake and alert. No obvious cranial nerve deficits. Motor grossly within normal limits. Normal speech. PSYCHIATRIC: Appropriate mood and affect; insight and judgment normal. Medications and IVs Current Medications Medications (Trade) Dose Ordered Sig/Jess Route Start Time Stop Time Status Last Admin (NS Flush) 2 ml UNSCH PRN FLUSH 04/26/16 03:00 (NS Flush) 2 ml BID FLUSH 04/26/16 09:00 04/27/16 09:12 (Lovenox Inj) 40 mg Q24H SQ 04/26/16 09:00 04/27/16 09:11 (Narcan Inj) 0.4 mg UNSCH PRN IV 04/26/16 03:00 (Tylenol) 650 mg Q6H PRN PO 04/26/16 12:45 (Arcade 5-325 Mg) 1 tab Q4H PRN PO 04/26/16 12:45 04/27/16 09:12 (Arcade 7.5-325 Mg) 1 tab Q4H PRN PO 04/26/16 12:45 04/27/16 00:29 (Mobic) 7.5 mg BID PO 04/26/16 21:00 04/27/16 09:12 (Protonix) 40 mg DAILY PO 04/27/16 09:00 04/27/16 09:12 (Flexeril) 5 mg Q8H PRN PO 04/27/16 14:00 A/P Problem List: (1) Syncope ICD Code: R55 Status: Acute (2) Atypical chest pain ICD Code: R07.89 Status: Acute (3) Rib contusion ICD Code: S20.219A Status: Acute Assessment and Plan 70-year-old female with history of multiple myeloma, arthritis, diet-controlled diabetes, hypertension, hyperlipidemia, and hx of PE completed treatment with Warfarin, presents after syncopal episode on 04/25. Syncope: possibly related to alcohol intoxication however need to rule out other etiologies. Images reviewed: Head CT unremarkable. CXR with possible myeloma involving right 5th rib. Abd/pelvis CT with no acute findings. Orthostatics negative. Echocardiogram unremarkable with EF 60-65%. Carotid U/S with mild to mod plaque, no significant stenosis. Monitored on telemetry, no acute events, will d/c tele. Patient ambulating without difficulty. Multiple Acute R Rib Fractures with Associated Chest Pain: secondary to syncopal event as above, patient struck chest on cooler. Pain reproducible on exam. Chest CT with multiple acute R rib fracture. Started Mobic 7.5mg bid. Pain control with [place] prn. Added Flexeril 5mg q8h prn spasms. Acute Hypoxic Respiratory Failure: O2 sat decreasing to 85% on room air, suspect secondary to poor inspiratory effort related to chest pain/fractures as above. With hx of PE, active multiple myeloma, chest pain, and hypoxia, checked CT-PA which was negative for PE. Patient failed home O2 walk test, case management arranged home oxygen to be delivered today. Duonebs q6h. Hyperkalemia: K 5.7, likely secondary to hemolysis. Repeat K 4.1. Resolved. Hypertension: chronic, continue patient's metoprolol. Hyperlipidemia: chronic, continue patient's statin. DVT Prophylaxis: teds/SCDs Written by Sailaja Sullivan, acting as scribe for Dr. Gill on 04/27/16 at 08:35. The documentation accurately reflects the work performed [id number] by me on 04/27/16 at 08:35. Discharge Planning Discharge today after home oxygen delivery Discharge patient to home Condition on discharge: Improved Heart Healthy Diet as tolerated Ad Ramona activity Rx written: Flexeril, Mobic, Arcade Follow-up with primary care physician within 1 week Problem Qualifiers (1) Syncope: Qualified Code: R55 - Syncope, unspecified syncope type Sailaja Sullivan PA-C Apr 27, 2016 08:35 Lara Gill DO Apr 27, 2016 22:48
[2016-04-27] MEDS ORDERED: PANTOPRAZOLE SOD 40 MG DELAYED RELEASE TAB PO SCH (09:00)
[2016-04-27] MEDS: ENOXAPARIN SODIUM 40 MG/0.4 ML SYRINGE SQ SCH (09:11)
[2016-04-27] MEDS: SODIUM CHLORIDE 0.9% FLUSH 5 ML FLUSH FLUSH SCH (09:12)
[2016-04-27] MEDS: ACETAMINOPHEN/HYDROcodone 325 MG/5 MG TAB PO PRN ×2 (09:12→16:08)
[2016-04-27] MEDS: MELOXICAM 7.5 MG TAB PO SCH (09:12)
[2016-04-27 12:03] VITALS: BP 100/60; PULSE 80; RESP 18; O2SAT 95
--- NOTE | 2016-04-27 12:58 | EC ---
Study Study Date:04/27/2016 STUDY CONCLUSIONS SUMMARY LEFT VENTRICLE: The cavity size was normal. Wall thickness was normal. Systolic function was normal. The estimated ejection fraction was in the range of 60% to 65%. Wall motion was normal; there were no regional wall motion abnormalities. Doppler parameters are consistent with abnormal left ventricular relaxation (grade 1 diastolic dysfunction). If LV function is below 40, please consider prescribing an ACEI or ARB or document rationale for non-use. PROCEDURE DATA STUDY STATUS: Elective. Procedure: Transthoracic echocardiography. Image quality was good. Scanning was performed from the parasternal, apical, and subcostal acoustic windows. Study completion: The patient tolerated the procedure well. Transthoracic echocardiography. M-mode, complete 2D, complete spectral Doppler, and color Doppler. Patient status: Inpatient. CARDIAC ANATOMY LEFT VENTRICLE: The cavity size was normal. Wall thickness was normal. Systolic function was normal. The estimated ejection fraction was in the range of 60% to 65%. Wall motion was normal; there were no regional wall motion abnormalities. Doppler parameters are consistent with abnormal left ventricular relaxation (grade 1 diastolic dysfunction). AORTIC VALVE: Trileaflet; normal thickness leaflets. Doppler: Transvalvular velocity was within the normal range. There was no stenosis. No regurgitation. Peak gradient: 19mm Hg (S). AORTA: Aortic root: The aortic root was normal in size. MITRAL VALVE: Structurally normal valve. Doppler: Transvalvular velocity was within the normal range. There was no evidence for stenosis. No regurgitation. LEFT ATRIUM: The atrium was normal in size. RIGHT VENTRICLE: The cavity size was normal. Wall thickness was normal. Systolic pressure was within the normal range. PULMONIC VALVE: Doppler: Transvalvular velocity was within the normal range. There was no evidence for stenosis. No regurgitation. TRICUSPID VALVE: Structurally normal valve. Doppler: Transvalvular velocity was within the normal range. Trace regurgitation. PULMONARY ARTERY: The main pulmonary artery was normal-sized. Systolic pressure was within the normal range. RIGHT ATRIUM: The atrium was normal in size. PERICARDIUM: There was no pericardial effusion. SYSTEMIC VEINS: Inferior vena cava: The vessel was normal in size. BASIC MEASUREMENTS ADULT NORMAL Left ventricle LV internal dimension, ED, chordal level, 43.9 mm 43-52 PLAX LV internal dimension, ES, chordal level, 29.7 mm 23-38 PLAX Fractional shortening, chordal level, PLAX 32 % >29 LV posterior wall thickness, ED 8.89 mm IVS/LVPW ratio, ED 0.88 <1.3 Ventricular septum Septal thickness, ED 7.81 mm Aortic valve Leaflet separation 21 mm 15-26 Left atrium Anterior-posterior dimension 24 mm Right ventricle RV internal dimension, ED, PLAX 22.9 mm 19-38 BASIC MEASUREMENTS ADULT NORMAL Aortic valve Leaflet separation 21 mm 15-26 Aorta Root diameter, ED 32 mm 20-37 DOPPLER MEASUREMENTS ADULT NORMAL Main pulmonary artery Pressure, S 19 mm Hg =30 Aortic valve Peak velocity, S 216 cm/s Peak gradient, S 19 mm Hg Mitral valve Peak E-wave velocity 67.9 cm/s Peak A-wave velocity 97.5 cm/s Peak E/A ratio 0.7 Tricuspid valve Regurgitant peak velocity 187 cm/s Peak RV-RA gradient, S 14 mm Hg Maximal regurgitant velocity 187 cm/s Systemic veins Estimated CVP 5 mm Hg Right ventricle RV pressure, S 19 mm Hg <30 LEGEND: Mean values are shown as u=mean value. Asterisk (*) renteria values outside specified normal range. Prepared and signed by Zackery Olson [id number]
[2016-04-27] MEDS ORDERED: CYCLOBENZAPRINE HCL 10 MG TAB PO PRN (14:00)
[2016-04-27] MEDS ORDERED: OXYGENTANK NAS.CANULA (14:15)
[2016-04-27] MEDS ORDERED: CYCL1TAB29 PO (17:17)
[2016-04-27] MEDS ORDERED: MELO7.5T4 PO (17:17)
--- NOTE | 2016-04-27 17:26 | HHI.DCPOC ---
Discharge Care Plan Diagnosis: (1) Multiple rib fractures (2) Hypoxia (3) Syncope Your Health Problems Are: Chest Pain Shortness of Breath Goals to Promote Your Health * To prevent worsening of your condition and complications * To maintain your health at the optimal level Directions to Meet Your Goals Take your medications as prescribed Follow your dietary instruction Follow activity as directed Keep your appointments as scheduled Take your immunizations and boosters as scheduled If your symptoms worsen call your PCP, if no PCP go to Urgent Care Center or Emergency Room Smoking is Dangerous to Your Health. Avoid second hand smoke Call the 24-hour hour crisis hotline for domestic abuse at Sailaja Sullivan PA-C Apr 27, 2016 17:26 Lara Gill DO Apr 27, 2016 22:47
[2016-04-27] MEDS ORDERED: NORC5TAB PO (17:36)
== END 2016-04-27 18:53 | disposition home or self-care (01) ==
LOC: NEPA 22:08 → NEDA 04-26 02:56 → NEPFCDU 04-26 05:32
PROVIDERS: ADMIT Hospitalist; ATTEND Hospitalist
DX: R55 Syncope and collapse (principal); S22.41XA Multiple fractures of ribs, right side, initial encounter for closed fracture; J96.01 Acute respiratory failure with hypoxia; M79.604 Pain in right leg; I11.9 Hypertensive heart disease without heart failure; E78.5 Hyperlipidemia, unspecified; E87.5 Hyperkalemia; E11.9 Type 2 diabetes mellitus without complications; C90.02 Multiple myeloma in relapse; K80.20 Calculus of gallbladder without cholecystitis without obstruction; E78.00 Pure hypercholesterolemia, unspecified; Z86.711 Personal history of pulmonary embolism
CPT/HCPCS: 70450; 71010; 71111; 71275; 74176; 76937; 80048; 80053; 80061; 81001; 84132; 85025; 93005; 93306; 93880; 94150; 94620; 94640; 94664; 96361; 96374; 96375; 96376; 97163; 99285; G0378; G8987; G8988; J1170; J1650; J2270; J2405; J7030; J7040; Q9963; Q9967

== ENCOUNTER 2016-12-22 13:29 | Emergency (ER) | payer OTHER ==
[~2016-12-22] VITALS: Ht 152.4 cm; Wt 94.0 kg
[~2016-12-22 13:29] MED LIST changes: -ACYC-1 PO; -ANTISOL30 EACH EAR; -ASPI81 PO; -CALC600T10 PO; -CORTIS10A RIGHT EAR; +CYCL1TAB29 PO; +MELO7.5T4 PO; -METO50 PO; +METO50TA PO; +NORC5TAB PO; +OXYGENTANK NAS.CANULA; -SIMV20TA PO; -TRAM50 PO; -ZITH500T PO; +ZOCO20TA PO
[2016-12-22 13:31] VITALS: BP 121/62; PULSE 60; RESP 16; TEMP 98.4; O2SAT 92
[2016-12-22 15:23] VITALS: BP 116/64; PULSE 65; RESP 18; TEMP 99.8; O2SAT 96
[2016-12-22] MEDS ORDERED: SODIUM CHLORIDE 0.9% FLUSH 10 ML FLUSH IVF PRN (15:30)
[2016-12-22 15:32] VITALS: O2SAT 96
[2016-12-22 15:55] LABS: AUTOMATED NEUTROPHIL # 3.4 TH/MM3 (1.8-7.7); BASOPHIL % 0.2 % (0.0-2.0); EOSINOPHIL # 0.1 TH/MM3 (0-0.4); EOSINOPHIL % 1.9 % (0.0-4.0); HEMATOCRIT 33.7 % (35.0-46.0); HEMO FLAGS DIFF FINAL; LYMPH % 9.3 % (9.0-44.0); LYMPHOCYTE # 0.4 TH/MM3 (1.0-4.8); MEAN CELL VOLUME 88.5 FL (80.0-100.0); MEAN CORPUSCULAR HEMOGLOBIN 29.8 PG (27.0-34.0); MEAN CORPUSCULAR HGB CONC 33.7 % (32.0-36.0); MONO % 10.1 % (0.0-8.0); NEUT % 78.5 % (16.0-70.0); PLATELET COUNT 102 TH/MM3 (150-450); RED BLOOD COUNT 3.81 MIL/MM3 (4.00-5.30); RED CELL DISTRIBUTION WIDTH 15.2 % (11.6-17.2); WHITE BLOOD COUNT 4.3 TH/MM3 (4.0-11.0)
[2016-12-22 16:28] LABS: ALKALINE PHOSPHATASE 55 U/L (45-117); ALT (GPT) 28 U/L (10-53); ANION GAP 8 MEQ/L (5-15); AST (GOT) 29 U/L (15-37); BICARBONATE 25.2 MEQ/L (21.0-32.0); BLOOD UREA NITROGEN 17 MG/DL (7-18); CHLORIDE 104 MEQ/L (98-107); GLOMERULAR FILTRATION RATE 90 ML/MIN (>89); POTASSIUM 4.3 MEQ/L (3.5-5.1); SODIUM (NA) 137 MEQ/L (136-145); TOTAL BILIRUBIN ADULT 0.6 MG/DL (0.2-1.0)
--- NOTE | 2016-12-22 16:32 | RADRPT ---
EXAM DATE/TIME: 12/22/2016 15:32 [facility] COMPARISON: CHEST SINGLE AP, April 25, 2016, 22:53. INDICATIONS : Cough, short of breath MEDICAL HISTORY : None. SURGICAL HISTORY : None. ENCOUNTER: Initial ACUITY: 2 days PAIN SCORE: 0/10 LOCATION: Bilateral chest FINDINGS: Portable AP view of the chest demonstrates a normal-sized cardiac silhouette. No effusion, consolidat ion, or pneumothorax is visualized. The bones and soft tissues demonstrate no acute abnormality. EKG lines overlie the patient. CONCLUSION: No acute cardiopulmonary abnormality is identified. Marc Will MD on December 22, 2016 at 16:31 Board Certified Radiologist. This report was verified electronically.
[2016-12-22 16:36] LABS: CREATINE KINASE 63 U/L (26-192)
[2016-12-22 17:09] LABS: PROTHROMBIN TIME - PATIENT 10.5 SEC (9.8-11.6)
[2016-12-22 17:24] LABS: APTT (PATIENT) 20.5 SEC (24.3-30.1)
[2016-12-22] MEDS ORDERED: IOHEXOL 350 MG/ML 10 ML VIAL (for RAD DIAG) IVCONTRAST ONE (18:30)
--- NOTE | 2016-12-22 18:37 | RADRPT ---
EXAM DATE/TIME: 12/22/2016 18:18 [facility] COMPARISON: CHEST SINGLE AP, December 22, 2016, 15:32. INDICATIONS : Shortness of breath. IV CONTRAST: 84 cc Omnipaque 350 (iohexol) IV RADIATION DOSE: 23.12 CTDIvol (mGy) MEDICAL HISTORY : Carcinoma, not otherwise specified. SURGICAL HISTORY : None. ENCOUNTER: Initial ACUITY: 1 day PAIN SCALE: 4/10 LOCATION: Bilateral chest TECHNIQUE: Volumetric scanning of the chest was performed using a pulmonary embolism protocol MIP images were re constructed. Using automated exposure control and adjustment of the mA and/or kV according to patien t size, radiation dose was kept as low as reasonably achievable to obtain optimal diagnostic quality images. DICOM format image data is available electronically for review and comparison. Follow-up recommendations for detected pulmonary nodules are based at a minimum on nodule size and pa tient risk factors according to Fleischner Society Guidelines. FINDINGS: PULMONARY ARTERIES: No filling defects are seen in the pulmonary arteries through the segmental level. LUNGS: There is no consolidation or pneumothorax . No concerning pulmonary nodule is visualized. Few scatte red calcified granulomas in the lung metcalf PLEURAE: There is no pleural thickening or pleural effusion. MEDIASTINUM: There is good visualization of the great vessels of the middle mediastinum. No evidence of mediastin al or hilar adenopathy/mass. Calcified hilar and mediastinal lymph nodes MUSCULOSKELETAL: Within normal limits for patient age. MISCELLANEOUS: The visualized upper abdominal organs demonstrate no acute abnormality. CONCLUSION: No evidence of pulmonary embolization. No acute cardiopulmonary disease. Evidence of remote granuloma tous disease Paul Tadeo MD on December 22, 2016 at 18:34 Board Certified Radiologist. This report was verified electronically.
[2016-12-22 18:43] VITALS: BP 92/53; PULSE 74; RESP 20; O2SAT 92
[2016-12-22] MEDS ORDERED: SODIUM CHLOR 0.9% 1000 ML INJ 1,000 ML IV ONE (19:00)
[2016-12-22] MEDS ORDERED: MORPHINE SULFATE 2 MG/ML INJ IV PUSH ONE (19:00)
[2016-12-22] MEDS ORDERED: ZITHTAB PO (19:02)
--- NOTE | 2016-12-22 19:02 | PD ---
HPI Chief Complaint: Fever Time Seen by Provider: 15:05 Travel History International Travel<30 days: No Contact w/Intl Traveler<30days: No Traveled to known affect area: No History of Present Illness HPI Patient is a 71-year-old female, on chemotherapy for multiple myeloma, last treatment was this week, who comes in complaining of cough. She says she also felt some tightness in her chest and was concerned that she might have a blood clot. She she took an Aleve this morning prior to coming in because she has body aches, which is chronic for her. She says the cough started Thursday and has been getting a little bit worse. She says she felt winded walking around today. She says her daughter noticed that her legs were swollen yesterday. She denies any chest pain. She has not had any nausea or vomiting. PFSH Past Medical History Arthritis: Yes (HANDS) Blood Disorders: No Anxiety: Yes Cancer: Yes (skin, multiple myeloma) Cardiovascular Problems: No High Cholesterol: Yes Chemotherapy: Yes (REVLIMID ) Diminished Hearing: No Endocrine: No Gastrointestinal Disorders: No Genitourinary: No Immune Disorder: No Implanted Vascular Access Dvce: No Musculoskeletal: Yes Neurologic: No Psychiatric: No Reproductive: No Respiratory: No Immunizations Current: No PNEUMOCCOCAL Vaccine (Year): 2 ?: Not Menopausal: Yes : 3 Para: 3 Past Surgical History Joint Replacement: Yes (LEFT ELBOW PLATE) Neurologic Surgery: Yes Other Surgery: No Social History Alcohol Use: Yes (OCCASIONALLY WINE) Tobacco Use: No Substance Use: No Allergies-Medications (Allergen,Severity, Reaction): Coded Allergies: penicillin G (Unverified Allergy, Severe, 10/21/16) Reported Meds & Prescriptions Reported Meds & Active Scripts Active [place] (Hydrocodone-Acetaminophen) 5-325 mg Tab 1 Tab PO Q6H PRN Meloxicam 7.5 Mg Tab 7.5 Mg PO BID Flexeril (Cyclobenzaprine HCl) 10 Mg Tab 5 Mg PO Q8H PRN Oxygen tank (Oxygen) 1 Ea Tank 2 Liter MIRNA.CANULA CONTINUOUS Oxygen Concentrator Portable Gaseous 2 L/min via Nasal Cannula Continuous For 99 months Reported Zocor (Simvastatin) 20 Mg Tab 20 Mg PO DAILY Metoprolol Tartrate 50 Mg Tab 50 Mg PO BID Review of Systems Except as stated in HPI: all other systems reviewed are Neg General / Constitutional: No: Chills HENT: No: Headaches, Lightheadedness Cardiovascular: No: Chest Pain or Discomfort Respiratory: Positive: Cough, Shortness of Breath Gastrointestinal: No: Nausea, Vomiting, Abdominal Pain Genitourinary: No: Dysuria Musculoskeletal: Positive: Myalgias Skin: No Rash, No Change in Pigmentation Neurologic: No: Weakness, Dizziness Physical Exam Narrative GENERAL: Awake and alert, in no acute distress. SKIN: Focused skin assessment warm/dry. HEAD: Atraumatic. Normocephalic. EYES: Pupils equal and round. No scleral icterus. ENT: Mucous membranes pink and moist. NECK: Trachea midline. No JVD. CARDIOVASCULAR: Regular rate and rhythm. No murmur appreciated. RESPIRATORY: No accessory muscle use. Clear to auscultation. Breath sounds equal bilaterally. GASTROINTESTINAL: Abdomen soft, non-tender, nondistended. MUSCULOSKELETAL: No obvious deformities. No clubbing. No cyanosis. No edema. No calf tenderness. NEUROLOGICAL: Awake and alert. No obvious cranial nerve deficits. Motor grossly within normal limits. Normal speech. PSYCHIATRIC: Appropriate mood and affect; insight and judgment normal. Data Data Last Documented VS Vital Signs Date Time Temp Pulse Resp B/P (MAP) Pulse Ox O2 Delivery O2 Flow Rate FiO2 12/22/16 18:44 96 Room Air 2.00 12/22/16 18:43 74 20 92/53 (66) 12/22/16 15:23 99.8 Orders Orders Complete Blood Count With Diff (12/22/16:) Comprehensive Metabolic Panel (12/22/16:) Act Partial Throm Time (Ptt) (12/22/16) Prothrombin Time / Inr (Pt) (12/22/16:) Ckmb (Isoenzyme) Profile (12/22/16:) Troponin I (12/22/16:) Iv Access Insert/Monitor (12/22/16) Electrocardiogram (12/22/16) Ecg Monitoring (12/22/16) Oximetry (12/22/16:) Oxygen Administration (12/22/16:) Chest, Single Ap (12/22/16:) Ct Pulmonary Angiogram (12/22/16:) Sodium Chloride 0.9% Flush (Ns Flush) (12/22/16 15:30) Vascular Access Team Consult/P PRN (12/22/16 15:48) Vascular Poc Ultrasound (12/22/16 ) Iohexol 350 Inj (Omnipaque 350 Inj) (12/22/16 18:30) Sodium Chlor 0.9% 1000 Ml Inj (Ns 1000 M (12/22/16 19:00) Morphine Inj (Morphine Inj) (12/22/16 19:00) Labs Laboratory Tests Test 12/22/16 15:30 12/22/16 16:34 White Blood Count 4.3 TH/MM3 Red Blood Count 3.81 MIL/MM3 Hemoglobin 11.4 GM/DL Hematocrit 33.7 % Mean Corpuscular Volume 88.5 FL Mean Corpuscular Hemoglobin 29.8 PG Mean Corpuscular Hemoglobin Concent 33.7 % Red Cell Distribution Width 15.2 % Platelet Count 102 TH/MM3 Mean Platelet Volume 7.9 FL Neutrophils (%) (Auto) 78.5 % Lymphocytes (%) (Auto) 9.3 % Monocytes (%) (Auto) 10.1 % Eosinophils (%) (Auto) 1.9 % Basophils (%) (Auto) 0.2 % Neutrophils # (Auto) 3.4 TH/MM3 Lymphocytes # (Auto) 0.4 TH/MM3 Monocytes # (Auto) 0.4 TH/MM3 Eosinophils # (Auto) 0.1 TH/MM3 Basophils # (Auto) 0.0 TH/MM3 CBC Comment DIFF FINAL Differential Comment Blood Urea Nitrogen 17 MG/DL Creatinine 0.65 MG/DL Random Glucose 97 MG/DL Total Protein 6.7 GM/DL Albumin 3.3 GM/DL Calcium Level 8.8 MG/DL Alkaline Phosphatase 55 U/L Aspartate Amino Transf (AST/SGOT) 29 U/L Alanine Aminotransferase (ALT/SGPT) 28 U/L Total Bilirubin 0.6 MG/DL Sodium Level 137 MEQ/L Potassium Level 4.3 MEQ/L Chloride Level 104 MEQ/L Carbon Dioxide Level 25.2 MEQ/L Anion Gap 8 MEQ/L Estimat Glomerular Filtration Rate 90 ML/MIN Total Creatine Kinase 63 U/L Troponin I LESS THAN 0.02 NG/ML Prothrombin Time 10.5 SEC Prothromb Time International Ratio 1.0 RATIO Activated Partial Thromboplast Time 20.5 SEC MDM Medical Decision Making Medical Screen Exam Complete: Yes Emergency Medical Condition: Yes Medical Record Reviewed: Yes Interpretation(s) ECG shows normal sinus rhythm at 67, no ST elevation or depression, normal intervals. Differential Diagnosis URI versus pneumonia versus PE Narrative Course Patient is a 71-year-old female comes in complaining of cough and shortness of breath. Exam shows no acute abnormalities. Patient is afebrile. IV established, labs sent. Labs show a white blood cell count of 4.3, she is not neutropenic. Chest x-ray shows no acute abnormalities. CTA performed shows no evidence of PE. Patient given IV fluids, small dose of morphine for her chronic pain. She'll be discharged with a prescription for azithromycin. She is advised to call Dr. Espinosa tomorrow in follow-up. Advised to return any time for any worsening symptoms. Diagnosis Primary Impression: Cough Patient Instructions: Acute Cough (ED), General Instructions Additional Instructions: Follow-up with Dr. Espinosa tomorrow. Take all of your antibiotic. In putting fluids. Return to the ED as needed for any worsening symptoms. Scripts Azithromycin (Zithromax Z-Glenn) 250 Mg Dspk 250 MG PO DIRECTED for Infection, #1 DSPK 0 Refills 500 MG (2 tabs) day 1, then 1 tab days 2-5. Prov: Jo Ann Rick MD 12/22/16 Disposition: 01 DISCHARGE HOME Condition: Stable Jo Ann Rick MD Dec 22, 2016 19:02
--- NOTE | 2016-12-23 21:25 | EKG ---
Date Performed: 12/22/2016 Time Performed: 16:58:17 PTAGE: 71 years EKG: Sinus rhythm NORMAL ECG PREVIOUS TRACING : 04/25/2016 23.38 SINCE PREVIOUS TRACING, QRS VOLTAGE HAS RETURNED TO NORMAL AND THE PRECORDIAL LEADS. DOCTOR: Mitchel Nicole Interpretating Date/Time 12/23/2016 21:24:07
== END 2016-12-22 19:37 | disposition home or self-care (01) ==
LOC: NEPE 13:29
DX: R05 Cough (principal); C90.00 Multiple myeloma not having achieved remission; E78.00 Pure hypercholesterolemia, unspecified; R06.02 Shortness of breath
CPT/HCPCS: 71010; 71275; 80053; 82550; 84484; 85025; 85610; 85730; 93005; 96374; 99285; J2270; J7030; Q9967

== ENCOUNTER 2017-01-25 18:17 | Emergency (ER) | payer OTHER ==
[~2017-01-25] VITALS: Ht 152.4 cm; Wt 95.0 kg
[~2017-01-25 18:17] MED LIST changes: +CYCL10TA PO; -CYCL1TAB29 PO; +MELO7.5T27 PO; -MELO7.5T4 PO; +ZITHTAB PO
[2017-01-25 18:23] VITALS: BP 133/62; PULSE 65; RESP 16; TEMP 98.4; O2SAT 95
--- NOTE | 2017-01-25 18:54 | PD ---
HPI Chief Complaint: GI Complaint Time Seen by Provider: 18:36 Travel History International Travel<30 days: No Contact w/Intl Traveler<30days: No Traveled to known affect area: No History of Present Illness HPI The patient is a 71-year-old female who presents to the emergency department for rectal bleeding. The patient has a history of multiple myeloma and is currently undergoing chemotherapy by her oncologist, Dr. Espinosa. The patient take several pills and an injection in the abdomen and every . The patient states she has had 4 episodes of hematochezia since last night. Patient describes the rectal bleeding as bright, and the toilet, on the toilet paper, and lightheaded at first. However, she had one episode earlier today which appeared to contain a large amount of blood. She denies any lightheadedness, dizziness, chest pain, shortness of breath, or exertional shortness of breath. She does have a history of previous symptoms in the past, is unsure if it was related to internal hemorrhoids or diverticulosis. She does have a history of colonic polyps and had her last colonoscopy last year by Dr. Mckenna. The patient does have a history of external hemorrhoids. She denies any pain with her bowel movements. She denies any nausea, vomiting, or upper abdominal pain. Symptoms are mild to moderate without any alleviating or exacerbating factors. 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 The patient does not take aspirin or any anticoagulants on a daily basis. The patient states she had blood work last week prior to chemotherapy and states her hemoglobin was 11.3. PFSH Past Medical History Arthritis: Yes (HANDS) Blood Disorders: No Anxiety: Yes Cancer: Yes (skin, multiple myeloma) Cardiovascular Problems: No High Cholesterol: Yes Chemotherapy: Yes (REVLIMID ) Diminished Hearing: No Endocrine: No Gastrointestinal Disorders: No Genitourinary: No Immune Disorder: No Implanted Vascular Access Dvce: No Musculoskeletal: Yes Neurologic: No Psychiatric: No Reproductive: No Respiratory: No Immunizations Current: No PNEUMOCCOCAL Vaccine (Year): 2 Menopausal: Yes : 3 Para: 3 Past Surgical History Joint Replacement: Yes (LEFT ELBOW PLATE) Neurologic Surgery: Yes Other Surgery: No Social History Alcohol Use: Yes (OCCASIONALLY WINE) Tobacco Use: No Substance Use: No Allergies-Medications (Allergen,Severity, Reaction): Coded Allergies: penicillin G (Unverified Allergy, Severe, 01/25/17) Reported Meds & Prescriptions Reported Meds & Active Scripts Active [place] (Hydrocodone-Acetaminophen) 5-325 mg Tab 1 Tab PO Q6H PRN Oxygen tank (Oxygen) 1 Ea Tank 2 Liter MIRNA.CANULA CONTINUOUS Oxygen Concentrator Portable Gaseous 2 L/min via Nasal Cannula Continuous For 99 months Reported Mag-Delay (Magnesium Chloride) 70 Mg Magnesium Tab 625 Mg PO DAILY Dexamethasone 4 Mg Tab 4 Mg PO DIRECTED Velcade Inj (Bortezomib) 3.5 Mg Inj Cyclophosphamide 50 Mg Cap 50 Mg PO Zocor (Simvastatin) 20 Mg Tab 20 Mg PO DAILY Metoprolol Tartrate 50 Mg Tab 50 Mg PO BID Review of Systems Except as stated in HPI: all other systems reviewed are Neg HENT: No: Lightheadedness Cardiovascular: No: Chest Pain or Discomfort, Dyspnea on exertion Respiratory: No: Shortness of Breath Gastrointestinal: Positive: Hematochezia, No: Nausea, Vomiting, Abdominal Pain , Hematemesis Genitourinary: No: Hematuria Musculoskeletal: No: Weakness Neurologic: No: Dizziness Physical Exam Narrative GENERAL: Awake, alert, pleasant 71-year-old female who appears her stated age and is in no acute respiratory distress. SKIN: Focused skin assessment warm/dry. HEAD: Atraumatic. Normocephalic. EYES: Pupils equal and round. No significant lower lid pallor noted. ENT: No nasal bleeding or discharge. Mucous membranes pink and moist. NECK: Trachea midline. No JVD. CARDIOVASCULAR: Regular rate and rhythm. No murmur appreciated. RESPIRATORY: No accessory muscle use. Clear to auscultation. Breath sounds equal bilaterally. GASTROINTESTINAL: Abdomen soft, non-tender, nondistended. No rebound tenderness. Rectal: Exam was performed in the presence of a female nurse. Trace bright red blood on the digital exam, guaiac positive. MUSCULOSKELETAL: No obvious deformities. No clubbing. No cyanosis. No edema. NEUROLOGICAL: Awake and alert. No obvious cranial nerve deficits. Motor grossly within normal limits. Normal speech. PSYCHIATRIC: Appropriate mood and affect; insight and judgment normal. Data Data Last Documented VS Vital Signs Date Time Temp Pulse Resp B/P (MAP) Pulse Ox O2 Delivery O2 Flow Rate FiO2 01/25/17 18:23 98.4 65 16 133/62 (85) 95 Orders Orders Complete Blood Count With Diff (01/25/17 18:47) Comprehensive Metabolic Panel (01/25/17 18:47) Prothrombin Time / Inr (Pt) (01/25/17 18:47) Act Partial Throm Time (Ptt) (01/25/17 18:47) Type And Screen (01/25/17 18:47) Ecg Monitoring (01/25/17 18:47) Iv Access Insert/Monitor (01/25/17 18:47) Orthostatic Vital Signs (01/25/17 18:47) Oximetry (01/25/17 18:47) Sodium Chloride 0.9% Flush (Ns Flush) (01/25/17 19:00) Labs Laboratory Tests Test 01/25/17 18:40 White Blood Count 3.9 TH/MM3 Red Blood Count 3.59 MIL/MM3 Hemoglobin 10.7 GM/DL Hematocrit 32.1 % Mean Corpuscular Volume 89.3 FL Mean Corpuscular Hemoglobin 29.8 PG Mean Corpuscular Hemoglobin Concent 33.4 % Red Cell Distribution Width 16.3 % Platelet Count 112 TH/MM3 Mean Platelet Volume 6.9 FL Neutrophils (%) (Auto) 62.3 % Lymphocytes (%) (Auto) 19.0 % Monocytes (%) (Auto) 13.7 % Eosinophils (%) (Auto) 4.9 % Basophils (%) (Auto) 0.1 % Neutrophils # (Auto) 2.5 TH/MM3 Lymphocytes # (Auto) 0.7 TH/MM3 Monocytes # (Auto) 0.5 TH/MM3 Eosinophils # (Auto) 0.2 TH/MM3 Basophils # (Auto) 0.0 TH/MM3 CBC Comment DIFF FINAL Differential Comment Prothrombin Time 10.1 SEC Prothromb Time International Ratio 0.9 RATIO Activated Partial Thromboplast Time 22.2 SEC Blood Urea Nitrogen 15 MG/DL Creatinine 0.63 MG/DL Random Glucose 103 MG/DL Total Protein 6.4 GM/DL Albumin 3.3 GM/DL Calcium Level 8.5 MG/DL Alkaline Phosphatase 48 U/L Aspartate Amino Transf (AST/SGOT) 19 U/L Alanine Aminotransferase (ALT/SGPT) 30 U/L Total Bilirubin 0.5 MG/DL Sodium Level 139 MEQ/L Potassium Level 3.7 MEQ/L Chloride Level 106 MEQ/L Carbon Dioxide Level 25.7 MEQ/L Anion Gap 7 MEQ/L Estimat Glomerular Filtration Rate 94 ML/MIN [facility] Medical Decision Making Medical Screen Exam Complete: Yes Emergency Medical Condition: Yes Medical Record Reviewed: Yes Interpretation(s) Laboratory Tests Test 01/25/17 18:40 White Blood Count 3.9 TH/MM3 Red Blood Count 3.59 MIL/MM3 Hemoglobin 10.7 GM/DL Hematocrit 32.1 % Mean Corpuscular Volume 89.3 FL Mean Corpuscular Hemoglobin 29.8 PG Mean Corpuscular Hemoglobin Concent 33.4 % Red Cell Distribution Width 16.3 % Platelet Count 112 TH/MM3 Mean Platelet Volume 6.9 FL Neutrophils (%) (Auto) 62.3 % Lymphocytes (%) (Auto) 19.0 % Monocytes (%) (Auto) 13.7 % Eosinophils (%) (Auto) 4.9 % Basophils (%) (Auto) 0.1 % Neutrophils # (Auto) 2.5 TH/MM3 Lymphocytes # (Auto) 0.7 TH/MM3 Monocytes # (Auto) 0.5 TH/MM3 Eosinophils # (Auto) 0.2 TH/MM3 Basophils # (Auto) 0.0 TH/MM3 CBC Comment DIFF FINAL Differential Comment Prothrombin Time 10.1 SEC Prothromb Time International Ratio 0.9 RATIO Activated Partial Thromboplast Time 22.2 SEC Blood Urea Nitrogen 15 MG/DL Creatinine 0.63 MG/DL Random Glucose 103 MG/DL Total Protein 6.4 GM/DL Albumin 3.3 GM/DL Calcium Level 8.5 MG/DL Alkaline Phosphatase 48 U/L Aspartate Amino Transf (AST/SGOT) 19 U/L Alanine Aminotransferase (ALT/SGPT) 30 U/L Total Bilirubin 0.5 MG/DL Sodium Level 139 MEQ/L Potassium Level 3.7 MEQ/L Chloride Level 106 MEQ/L Carbon Dioxide Level 25.7 MEQ/L Anion Gap 7 MEQ/L Estimat Glomerular Filtration Rate 94 ML/MIN Differential Diagnosis Differential diagnosis includes internal hemorrhoids, anal fissure, diverticulosis, AV malformation, medication side effect from steroids, upper GI bleed, peptic ulcer disease, coagulopathy, anemia. Narrative Course IV was established, labs are drawn and sent, and the patient was placed on cardiac telemetry monitoring and continuous pulse oximetry monitoring. The patient's hemoglobin is 10.7, previous hemoglobin was 10.3 and one month ago was 10.4. The patient's BUN and creatinine are unremarkable. The patient has no tachycardia or hypertension. She has no exertional chest pain or shortness of breath. She has no lightheadedness or dizziness. The patient is currently asymptomatic. The patient has painless hematochezia, may be internal hemorrhoids versus diverticulosis. She is advised to follow-up with her primary physician for repeat CBC and if symptoms persist or worsen to return to the emergency department. The patient agrees and understands. The patient will be provided a copy of her labs at discharge. Diagnosis Primary Impression: Hematochezia Patient Instructions: General Instructions Additional Instructions: Return for worsening symptoms or if you develop lightheadedness, dizziness, shortness of breath with exertion, or prolonged bleeding. Follow-up with your primary physician this week for repeat CBC. Please provide the patient copy of her labs at discharge. Disposition: 01 DISCHARGE HOME Condition: Stable Homero Forrest MD Jan 25, 2017 18:54
[2017-01-25] MEDS ORDERED: BORT3.5P (18:55)
[2017-01-25] MEDS ORDERED: CYCL1CAP4 PO (18:55)
[2017-01-25] MEDS ORDERED: DEXA4TAB PO (18:55)
[2017-01-25] MEDS ORDERED: MAG-TAB PO (18:56)
[2017-01-25 19:00] VITALS: BP 112/49; PULSE 59; RESP 18; O2SAT 97
[2017-01-25] MEDS ORDERED: SODIUM CHLORIDE 0.9% FLUSH 10 ML FLUSH IVF PRN (19:00)
[2017-01-25 19:10] LABS: AUTOMATED NEUTROPHIL # 2.5 TH/MM3 (1.8-7.7); BASOPHIL % 0.1 % (0.0-2.0); EOSINOPHIL # 0.2 TH/MM3 (0-0.4); EOSINOPHIL % 4.9 % (0.0-4.0); HEMATOCRIT 32.1 % (35.0-46.0); HEMO FLAGS DIFF FINAL; LYMPHOCYTE # 0.7 TH/MM3 (1.0-4.8); MEAN CELL VOLUME 89.3 FL (80.0-100.0); MEAN CORPUSCULAR HEMOGLOBIN 29.8 PG (27.0-34.0); MEAN CORPUSCULAR HGB CONC 33.4 % (32.0-36.0); MONO % 13.7 % (0.0-8.0); NEUT % 62.3 % (16.0-70.0); PLATELET COUNT 112 TH/MM3 (150-450); RED BLOOD COUNT 3.59 MIL/MM3 (4.00-5.30); RED CELL DISTRIBUTION WIDTH 16.3 % (11.6-17.2); WHITE BLOOD COUNT 3.9 TH/MM3 (4.0-11.0)
[2017-01-25 19:22] LABS: CHLORIDE 106 MEQ/L (98-107); POTASSIUM 3.7 MEQ/L (3.5-5.1); SODIUM (NA) 139 MEQ/L (136-145)
[2017-01-25 19:25] LABS: ANION GAP 7 MEQ/L (5-15); BICARBONATE 25.7 MEQ/L (21.0-32.0)
[2017-01-25 19:26] LABS: BLOOD UREA NITROGEN 15 MG/DL (7-18)
[2017-01-25 19:28] LABS: ALT (GPT) 30 U/L (10-53); APTT (PATIENT) 22.2 SEC (24.3-30.1); INTERNATIONAL NORMALIZED RATIO 0.9 RATIO; PROTHROMBIN TIME - PATIENT 10.1 SEC (9.8-11.6)
[2017-01-25 19:29] LABS: AST (GOT) 19 U/L (15-37); GLOMERULAR FILTRATION RATE 94 ML/MIN (>89)
[2017-01-25 19:30] LABS: TOTAL BILIRUBIN ADULT 0.5 MG/DL (0.2-1.0)
[2017-01-25 19:31] LABS: ALKALINE PHOSPHATASE 48 U/L (45-117)
[2017-01-25 19:53] VITALS: BP 110/68
== END 2017-01-25 20:07 | disposition home or self-care (01) ==
LOC: PHED 18:17
DX: K92.1 Melena (principal); E78.00 Pure hypercholesterolemia, unspecified
CPT/HCPCS: 80053; 85025; 85610; 85730; 86850; 86900; 86901; 99283

== ENCOUNTER 2017-05-09 16:03 | Inpatient (IN) | payer OTHER, MEDICARE ==
[~2017-05-09] VITALS: Ht 152.4 cm; Wt 98.0 kg
[2017-05-09] VITALS (10 sets, daily range): BP systolic 78–136; BP diastolic 41–78; PULSE 92–126; RESP 16–24; TEMP 99–103.3; O2SAT 93–98
[~2017-05-09 16:03] MED LIST changes: +BORT3.5P; -CYCL10TA PO; +CYCL1CAP4 PO; +DEXA4TAB PO; +MAG-TAB PO; -MELO7.5T27 PO; -ZITHTAB PO
[2017-05-09] MEDS ORDERED: SODIUM CHLORID 0.9% 500 ML INJ 500 ML IV ONE (17:00)
[2017-05-09] MEDS ORDERED: ACETAMINOPHEN 325 MG TAB PO ONE (17:00)
--- NOTE | 2017-05-09 17:20 | RADRPT ---
EXAM DATE/TIME: 05/09/2017 17:04 [facility] COMPARISON: CT PULMONARY ANGIOGRAM, December 22, 2016, 18:18. INDICATIONS : Fever- Flu like symptoms. MEDICAL HISTORY : Carcinoma, not otherwise specified. Bronchitis. SURGICAL HISTORY : None. ENCOUNTER: Initial ACUITY: 2 days PAIN SCORE: 0/10 LOCATION: Bilateral chest FINDINGS: There is cardiomegaly. No consolidation or effusion. Scattered calcified granulomas. Degenerative jolly nges. CONCLUSION: No acute disease. Bernardino Bynum MD on May 09, 2017 at 17:18 Board Certified Radiologist. This report was verified electronically.
[2017-05-09 17:53] LABS: AUTOMATED NEUTROPHIL # 5.3 TH/MM3 (1.8-7.7); BASOPHIL % 0.4 % (0.0-2.0); EOSINOPHIL % 0.5 % (0.0-4.0); HEMOGLOBIN 10.5 GM/DL (11.6-15.3); LYMPH % 2.4 % (9.0-44.0); LYMPHOCYTE # 0.1 TH/MM3 (1.0-4.8); MEAN CELL VOLUME 90.3 FL (80.0-100.0); MEAN CORPUSCULAR HEMOGLOBIN 31.6 PG (27.0-34.0); MEAN PLATELET VOLUME 7.3 FL (7.0-11.0); MONO % 8.4 % (0.0-8.0); MONOCYTE # 0.5 TH/MM3 (0-0.9); NEUT % 88.3 % (16.0-70.0); PLATELET COUNT 108 TH/MM3 (150-450); RED BLOOD COUNT 3.33 MIL/MM3 (4.00-5.30); WHITE BLOOD COUNT 5.9 TH/MM3 (4.0-11.0)
[2017-05-09 18:03] LABS: CHLORIDE 104 MEQ/L (98-107); SODIUM (NA) 135 MEQ/L (136-145)
[2017-05-09 18:07] LABS: ALBUMIN 3.1 GM/DL (3.4-5.0); BICARBONATE 20.1 MEQ/L (21.0-32.0); BLOOD UREA NITROGEN 27 MG/DL (7-18); GLUCOSE,RANDOM 130 MG/DL (74-106)
[2017-05-09 18:10] LABS: ALT (GPT) 15 U/L (10-53); AST (GOT) 22 U/L (15-37); GLOMERULAR FILTRATION RATE 49 ML/MIN (>89); PHOSPHORUS 3.7 MG/DL (2.5-4.9)
[2017-05-09 18:12] LABS: TOTAL BILIRUBIN ADULT 0.7 MG/DL (0.2-1.0); TOTAL PROTEIN 6.4 GM/DL (6.4-8.2)
[2017-05-09 18:13] LABS: ALKALINE PHOSPHATASE 45 U/L (45-117)
[2017-05-09 18:14] LABS: INTERNATIONAL NORMALIZED RATIO 1.1 RATIO; PROTHROMBIN TIME - PATIENT 10.7 SEC (9.8-11.6)
[2017-05-09 18:15] LABS: TROPONIN I LESS THAN 0.02 NG/ML (0.02-0.05)
[2017-05-09] MEDS ORDERED: SODIUM CHLOR 0.9% 1000 ML INJ 1,000 ML IV ONE (18:15)
[2017-05-09 18:43] LABS: BILIRUBIN, URINE NEG (NEG); BLOOD, URINE LARGE (NEG); GLUCOSE,URINE NEG (NEG); KETONE, URINE NEG (NEG); NITRITE,URINE NEG (NEG); URINE COLOR YELLOW (YELLW/STRAW); URINE LEUKOCYTE ESTERASE SMALL (NEG)
[2017-05-09 19:14] LABS: WBC, URINE 100-200 /hpf (0-5); WHITE BLOOD CELL CLUMPS FEW
[2017-05-09 19:15] LABS: BACTERIA, URINE MOD /hpf
[2017-05-09] MEDS ORDERED: AZTREONAM INJ 2,000 MG in SODIUM CHLORIDE 0.9% INJ 100 ML IV ONE (19:30)
--- NOTE | 2017-05-09 19:30 | PD ---
HPI Chief Complaint: Fever Time Seen by Provider: 16:51 Travel History International Travel<30 days: No Contact w/Intl Traveler<30days: No Traveled to known affect area: No History of Present Illness HPI Patient is a 71-year-old female with a history of multiple myeloma last chemotherapy was 4 days ago followed by Dr. Espinosa presents emergency department which is not feeling well and fevers. Patient states she has been not feeling well for the past 24-36 hrs. Mild nausea without vomiting no constipation or blood in the stool no abdominal pain. She does endorse quite copious diarrhea. no rashes no wounds no cough no congestion no runny nose no ear pain. States symptoms are moderate, for the past few days, gradually worsening context and associated signs symptoms as above. PFSH Past Medical History Arthritis: Yes (HANDS) Blood Disorders: No Anxiety: Yes Cancer: Yes (skin, multiple myeloma) Cardiovascular Problems: No High Cholesterol: Yes Chemotherapy: Yes (2011 & 05/07/17 ORAL CHEMO) Diabetes: No (BORDER LINE) Patient Takes Glucophage: No Diminished Hearing: No Endocrine: No Gastrointestinal Disorders: No Genitourinary: No Immune Disorder: No Implanted Vascular Access Dvce: No Musculoskeletal: Yes Neurologic: No Psychiatric: No Reproductive: No Respiratory: No Immunizations Current: No Radiation Therapy: Yes (2011) Tetanus Vaccination: < 5 Years Influenza Vaccination: Yes PNEUMOCCOCAL Vaccine (Year): 2 ?: Not Menopausal: Yes : 3 Para: 3 Past Surgical History Joint Replacement: Yes (LEFT ELBOW PLATE) Neurologic Surgery: Yes Other Surgery: No Social History Alcohol Use: Yes (OCCASIONALLY WINE) Tobacco Use: No Substance Use: No Allergies-Medications (Allergen,Severity, Reaction): Coded Allergies: penicillin G (Unverified Allergy, Severe, 05/09/17) Reported Meds & Prescriptions Reported Meds & Active Scripts Active [place] (Hydrocodone-Acetaminophen) 5-325 mg Tab 1 Tab PO Q6H PRN Reported Xanax (Alprazolam) 0.5 Mg Tab 0.5 Mg PO BID PRN Sertraline (Sertraline HCl) 50 Mg Tab 50 Mg PO DAILY Metoprolol Tartrate 25 Mg Tab 25 Mg PO DAILY Flexeril (Cyclobenzaprine HCl) 10 Mg Tab 10 Mg PO DAILY Atorvastatin (Atorvastatin Calcium) 40 Mg Tab 40 Mg PO HS Aspirin 81 Mg Chew 81 Mg CHEW DAILY Review of Systems Except as stated in HPI: all other systems reviewed are Neg Physical Exam Narrative GENERAL: Well-developed well-nourished, ill appearance. SKIN: Focused skin assessment warm/dry. HEAD: Atraumatic. Normocephalic. EYES: Pupils equal and round. No scleral icterus. No injection or drainage. ENT: No nasal bleeding or discharge. Mucous membranes pink and moist. NECK: Trachea midline. No JVD. CARDIOVASCULAR: Tachycardia with regular rhythm. No murmur appreciated. RESPIRATORY: No accessory muscle use. Clear to auscultation. Breath sounds equal bilaterally. GASTROINTESTINAL: Abdomen soft, non-tender, nondistended. Hepatic and splenic margins not palpable. MUSCULOSKELETAL: No obvious deformities. No clubbing. No cyanosis. No edema. NEUROLOGICAL: Awake and alert. No obvious cranial nerve deficits. Motor grossly within normal limits. Normal speech. PSYCHIATRIC: Appropriate mood and affect; insight and judgment normal. Data Data Last Documented VS Vital Signs Date Time Temp Pulse Resp B/P (MAP) Pulse Ox O2 Delivery O2 Flow Rate FiO2 05/09/17 19:56 92 18 101/57 (72) 98 05/09/17 18:35 100.1 Nasal Cannula 2.00 Orders Orders Sepsis Workup Initiated (05/09/17 ) Electrocardiogram (05/09/17 16:58) Complete Blood Count With Diff (05/09/17 16:58) Comprehensive Metabolic Panel (05/09/17 16:58) Prothrombin Time / Inr (Pt) (05/09/17 16:58) Act Partial Throm Time (Ptt) (05/09/17 16:58) Lactic Acid Sepsis Protocol (05/09/17 16:58) Magnesium (Mg) (05/09/17 16:58) Phosphorus (Po4) (05/09/17 16:58) Lipase (05/09/17 16:58) Ckmb (Isoenzyme) Profile (05/09/17 16:58) Troponin I (05/09/17 16:58) Urinalysis - C+S If Indicated (05/09/17 16:58) Influenzae A/B Antigen (05/09/17 16:58) Blood Culture (05/09/17 16:58) Chest, Single Ap (05/09/17 16:58) Ecg Monitoring (05/09/17 16:58) Iv Access Insert/Monitor (05/09/17 16:58) Oximetry (05/09/17 16:58) Oxygen Administration (05/09/17 16:58) Acetaminophen (Tylenol) (05/09/17 17:00) Sodium Chlorid 0.9% 500 Ml Inj (Ns 500 M (05/09/17 17:00) Sodium Chlor 0.9% 1000 Ml Inj (Ns 1000 M (05/09/17 18:15) C Diff Toxin Pcr (05/09/17 19:04) Stool Ova And Parasite Screen (05/09/17 19:04) Urine Culture (05/09/17 18:25) Vancomycin Inj (Vancomycin Inj) (05/09/17 20:00) Aztreonam Inj (Azactam Inj) (05/09/17 19:30) Admit Order (Ed Use Only) (05/09/17 ) Consult Medical Oncology (05/09/17 ) Labs Laboratory Tests Test 05/09/17 17:25 05/09/17 18:25 05/09/17 19:00 White Blood Count 5.9 TH/MM3 Red Blood Count 3.33 MIL/MM3 Hemoglobin 10.5 GM/DL Hematocrit 30.0 % Mean Corpuscular Volume 90.3 FL Mean Corpuscular Hemoglobin 31.6 PG Mean Corpuscular Hemoglobin Concent 35.0 % Red Cell Distribution Width 16.0 % Platelet Count 108 TH/MM3 Mean Platelet Volume 7.3 FL Neutrophils (%) (Auto) 88.3 % Lymphocytes (%) (Auto) 2.4 % Monocytes (%) (Auto) 8.4 % Eosinophils (%) (Auto) 0.5 % Basophils (%) (Auto) 0.4 % Neutrophils # (Auto) 5.3 TH/MM3 Lymphocytes # (Auto) 0.1 TH/MM3 Monocytes # (Auto) 0.5 TH/MM3 Eosinophils # (Auto) 0.0 TH/MM3 Basophils # (Auto) 0.0 TH/MM3 CBC Comment DIFF FINAL Differential Comment Prothrombin Time 10.7 SEC Prothromb Time International Ratio 1.1 RATIO Activated Partial Thromboplast Time 19.8 SEC Blood Urea Nitrogen 27 MG/DL Creatinine 1.10 MG/DL Random Glucose 130 MG/DL Total Protein 6.4 GM/DL Albumin 3.1 GM/DL Calcium Level 8.0 MG/DL Phosphorus Level 3.7 MG/DL Magnesium Level 2.0 MG/DL Alkaline Phosphatase 45 U/L Aspartate Amino Transf (AST/SGOT) 22 U/L Alanine Aminotransferase (ALT/SGPT) 15 U/L Total Bilirubin 0.7 MG/DL Sodium Level 135 MEQ/L Potassium Level 4.0 MEQ/L Chloride Level 104 MEQ/L Carbon Dioxide Level 20.1 MEQ/L Anion Gap 11 MEQ/L Estimat Glomerular Filtration Rate 49 ML/MIN Lactic Acid Level 1.2 mmol/L Total Creatine Kinase 52 U/L Troponin I LESS THAN 0.02 NG/ML Lipase 74 U/L Urine Collection Type CLEAN CATCH Urine Color YELLOW Urine Turbidity CLOUDY Urine pH 5.0 Urine Specific [place] GREATER/EQUAL 1.030 Urine Protein TRACE mg/dL Urine Glucose (UA) NEG mg/dL Urine Ketones NEG mg/dL Urine Occult Blood LARGE Urine Nitrite NEG Urine Bilirubin NEG Urine Urobilinogen 0.2 MG/DL Urine Leukocyte Esterase SMALL Urine RBC 10-14 /hpf Urine WBC 100-200 /hpf Urine WBC Clumps FEW Urine Squamous Epithelial Cells 6-8 /hpf Urine Bacteria MOD /hpf Microscopic Urinalysis Comment CULTURE INDICATED Stool C. difficile Toxin (PCR) NEGATIVE Stl C. difficile Toxin Epiderm 027 PRESUMPTIVE NEGATIVE MDM Medical Decision Making Medical Screen Exam Complete: Yes Emergency Medical Condition: Yes Differential Diagnosis Sirs, sepsis, pneumonia, UTI, gastritis, gastroenteritis per Narrative Course Patient room to the emergency department, 71-year-old female with a history of multiple myeloma chemotherapy with Dr. Espinosa, found to have SIRS criteria with UTI and septic. Not severe septic as her lactic acid is only 1.8. She did have one blood pressure in the 70 systolic but this was only on arrival, she seems to be perfusing well, responded to fluids quite well and she started to feel better. Tylenol given and her fever broke. Started on broad-spectrum antibiotics as she is immunocompromised with vancomycin and Azactam she is penicillin allergic. Patient was discussed with Dr. Mcfarland who is on-call for Dr. Espinosa, will be admitted to medicine and he agrees with the regimen so far. She is stable for the floor Diagnosis Primary Impression: Sepsis Additional Impressions: UTI (urinary tract infection) Diarrhea Admitting Information Admitting Physician Requests: Admit Condition: Stable Juancho Rojas MD May 09, 2017 19:30
[2017-05-09] MEDS ORDERED: CYCL10TA PO (19:38)
[2017-05-09] MEDS ORDERED: METO25TA3 PO (19:38)
[2017-05-09] MEDS ORDERED: ATOR40TA16 PO (19:38)
[2017-05-09] MEDS ORDERED: SERT-132 PO (19:38)
[2017-05-09] MEDS ORDERED: ASPI-516 CHEW (19:38)
[2017-05-09] MEDS ORDERED: VANCOMYCIN INJ 1,000 MG in SODIUM CHLOR 0.9% 250 ML INJ 250 ML IV ONE (20:00)
[2017-05-09] MEDS ORDERED: Vancomycin Consult Pharmacy 1 EA OTHER SCH (21:00)
[2017-05-09] MEDS ORDERED: NALOXONE HCL 0.4 MG/ML AMP IV PUSH PRN (21:00)
[2017-05-09] MEDS: SODIUM CHLORIDE 0.9% FLUSH 10 ML FLUSH IV FLUSH SCH (21:00)
[2017-05-09] MEDS ORDERED: SODIUM CHLORIDE 0.9% FLUSH 10 ML FLUSH IV FLUSH PRN (21:00)
[2017-05-09] MEDS ORDERED: ONDANSETRON HCL 4 MG/2 ML VIAL IVP PRN (21:00)
[2017-05-09] MEDS: SODIUM CHLOR 0.9% 1000 ML INJ 1,000 ML IV SCH (21:08)
[2017-05-09] MEDS: ACETAMINOPHEN 325 MG TAB PO PRN (22:23)
[2017-05-09] MEDS ORDERED: ALPR.5 PO (22:55)
[2017-05-10] VITALS (8 sets, daily range): BP systolic 90–128; BP diastolic 54–60; PULSE 71–115; RESP 16–20; TEMP 96.4–103.2; O2SAT 91–98
[2017-05-10] MEDS ORDERED: IBUPROFEN 600 MG TAB PO ONE (01:15)
[2017-05-10] MEDS: OSELTAMIVIR PHOSPHATE 75 MG CAP PO SCH ×3 (02:36→20:37)
[2017-05-10] MEDS: AZTREONAM INJ 2,000 MG in SODIUM CHLORIDE 0.9% INJ 100 ML IV SCH ×3 (04:23→20:38)
[2017-05-10] MEDS: SODIUM CHLOR 0.9% 1000 ML INJ 1,000 ML IV SCH ×3 (06:36→20:56)
[2017-05-10 07:29] LABS: AUTOMATED NEUTROPHIL # 4.7 TH/MM3 (1.8-7.7); EOSINOPHIL % 0.1 % (0.0-4.0); HEMATOCRIT 26.4 % (35.0-46.0); HEMOGLOBIN 9.1 GM/DL (11.6-15.3); LYMPH % 2.7 % (9.0-44.0); LYMPHOCYTE # 0.1 TH/MM3 (1.0-4.8); MEAN CELL VOLUME 90.6 FL (80.0-100.0); MEAN CORPUSCULAR HEMOGLOBIN 31.3 PG (27.0-34.0); MEAN CORPUSCULAR HGB CONC 34.5 % (32.0-36.0); MONO % 10.4 % (0.0-8.0); MONOCYTE # 0.6 TH/MM3 (0-0.9); NEUT % 86.8 % (16.0-70.0); PLATELET COUNT 75 TH/MM3 (150-450); RED BLOOD COUNT 2.92 MIL/MM3 (4.00-5.30); WHITE BLOOD COUNT 5.4 TH/MM3 (4.0-11.0)
[2017-05-10 07:31] LABS: BICARBONATE 18.5 MEQ/L (21.0-32.0); CALCIUM 7.1 MG/DL (8.5-10.1); CREATININE 0.83 MG/DL (0.50-1.00)
[2017-05-10 08:24] LABS: CALCIUM-PROTEIN CORRECTED 8.2 MG/DL (8.5-10.1); TOTAL PROTEIN 5.1 GM/DL (6.4-8.2)
[2017-05-10] MEDS: SODIUM CHLORIDE 0.9% FLUSH 10 ML FLUSH IV FLUSH SCH ×2 (09:00→20:38)
[2017-05-10] MEDS ORDERED: LOPERAMIDE HCL 2 MG CAP PO PRN (09:00)
[2017-05-10] MEDS ORDERED: SODIUM CHLOR 0.9% 1000 ML INJ 1,000 ML IV ONE ×2 (09:00→16:00)
--- NOTE | 2017-05-10 09:12 | HHI.HP ---
[facility] Brianna Posey MD Admission Diagnosis influenza, dehydration, SIRs, renal insufficiency Diagnoses: Chief Complaint: Fever and diarrhea Travel History International Travel<30 Days: No Contact w/Intl Traveler <30 Da: No Traveled to Known Affected Are: No Sepsis Criteria Criteria Outcome: Meets SIRS criteria History of Present Illness This is a 71-year-old female with a history of multiple myeloma currently being treated with chemotherapy, depression, anxiety, and hypertension who presented with fever, chills, and diarrhea. Patient stated that she had chemotherapy on and after chemotherapy she started having watery diarrhea every hour. Patient stated she then had fevers and chills Thursday morning and checked her temperature which she had a fever of 103.8. She denies any abdominal pain nausea or vomiting. Patient also denies any urinary symptoms. Yesterday due to the fevers patient felt short of breath so came to the emergency department. Patient denies any URI symptoms and stated that her shortness of breath breathing has resolved. She stated that she felt that was due to her fevers and chills. Patient feels a lot better now and is asking to go home tomorrow. Her daughter is at the bedside during the interview. All other review of system reviewed and negative. Past Family Social History Past Medical History Multiple myeloma Depression Anxiety Hypertension Past Surgical History Surgery on her left elbow Surgery on her back due to multiple myeloma in 2012 Reported Medications Reported Meds & Active Scripts Active [place] (Hydrocodone-Acetaminophen) 5-325 mg Tab 1 Tab PO Q6H PRN Reported Xanax (Alprazolam) 0.5 Mg Tab 0.5 Mg PO BID PRN Sertraline (Sertraline HCl) 50 Mg Tab 50 Mg PO DAILY Metoprolol Tartrate 25 Mg Tab 25 Mg PO DAILY Flexeril (Cyclobenzaprine HCl) 10 Mg Tab 10 Mg PO DAILY Atorvastatin (Atorvastatin Calcium) 40 Mg Tab 40 Mg PO HS Aspirin 81 Mg Chew 81 Mg CHEW DAILY Allergies: Coded Allergies: penicillin G (Unverified Allergy, Severe, 05/09/17) Active Ordered Medications Current Medications Acetaminophen (Tylenol) 650 mg ONCE ONCE PO Last administered on 05/09/17at 17: 31; Start 05/09/17 at 17:00; Stop 05/09/17 at 17:01; Status DC Sodium Chloride 500 ml @ 500 mls/hr BOLUS ONCE IV Last administered on at 17:31; Start 05/09/17 at 17:00; Stop 05/09/17 at 17:59; Status DC Sodium Chloride 1,000 ml @ 999 mls/hr BOLUS ONCE IV Last administered on at 18:16; Start 05/09/17 at 18:15; Stop 05/09/17 at 19:15; Status DC Vancomycin HCl 1000 mg/Sodium Chloride 250 ml @ 250 mls/hr ONCE ONCE IV Last administered on 05/09/17at 20:53; Start 05/09/17 at 20:00; Stop 05/09/17 at 20:59; Status DC Aztreonam 2000 mg/ Sodium Chloride 100 ml @ 200 mls/hr ONCE ONCE IV Last administered on 05/09/17at 19:54; Start 05/09/17 at 19:30; Stop 05/09/17 at 19:59; Status DC Sodium Chloride 1,000 ml @ 100 mls/hr Q10H IV Last administered on 05/10/17at 06 :36; Start 05/09/17 at 20:51 Sodium Chloride (NS Flush) 2 ml UNSCH PRN IV FLUSH FLUSH AFTER USING IV ACCESS ; Start 05/09/17 at 21:00 Sodium Chloride (NS Flush) 2 ml BID IV FLUSH ; Start 05/09/17 at 21:00 Acetaminophen (Tylenol) 650 mg Q4H PRN PO TEMP > 100.4 Last administered on 05/09at 22:23; Start 05/09/17 at 21:00 Ondansetron HCl (Zofran Inj) 4 mg Q6H PRN IVP NAUSEA OR VOMITING; Start at 21:00 Naloxone HCl (Narcan Inj) 0.4 mg UNSCH PRN IV PUSH SEE LABEL COMMENTS; Start at 21:00 Pharmacy Profile Note 0 ml @ 0 mls/hr UNSCH OTHER ; Start 05/09/17 at 21:00 Aztreonam 2000 mg/ Sodium Chloride 100 ml @ 200 mls/hr Q8H IV Last administered on 05/10/17at 04:23; Start 05/10/17 at 04:00 Vancomycin HCl 1500 mg/Sodium Chloride 515 ml @ 257.5 mls/ hr DAILY@1500 IV ; Start 05/10/17 at 15:00 Miscellaneous Information SPECIFIC LAB TO BE ... ONCE ONCE .XX ; Start at 14:45; Stop 05/13/17 at 14:46 Ibuprofen (Motrin) 600 mg ONCE ONCE PO Last administered on 05/10/17at 02:37; Start 05/10/17 at 01:15; Stop 05/10/17 at 01:16; Status DC Oseltamivir Phosphate (Tamiflu) 75 mg BID PO Last administered on 05/10/17at 02: 36; Start 05/10/17 at 01:15 Loperamide HCl (Imodium) 2 mg ONCE ONCE PO ; Start 05/10/17 at 09:00; Stop at 09:01; Status UNV Loperamide HCl (Imodium) 2 mg Q6H PRN PO diarrhea; Start 05/10/17 at 09:00; Status UNV Sodium Chloride 1,000 ml @ 999 mls/hr BOLUS ONCE IV ; Start 05/10/17 at 09:00; Stop 05/10/17 at 10:00; Status UNV Family History Mother had uterine cancer. Social History Denies any alcohol, tobacco, illicit drug use. Physical Exam Vital Signs Vital Signs Date Time Temp Pulse Resp B/P (MAP) Pulse Ox O2 Delivery O2 Flow Rate FiO2 05/10/17 05:09 97.9 82 18 92/54 (67) 98 05/10/17 02:36 100.5 05/10/17 01:37 103.2 102 16 90/54 (66) 94 05/09/17 22:29 126 05/09/17 22:15 103.3 101 22 136/78 (97) 96 05/09/17 22:15 102 18 98 Nasal Cannula 2.00 05/09/17 22:14 102 18 111/53 (72) 98 05/09/17 21:04 99.0 98 18 113/54 (73) 98 05/09/17 19:56 92 18 101/57 (72) 98 05/09/17 18:35 100.1 96 16 105/55 (72) 98 Nasal Cannula 2.00 05/09/17 18:30 98 16 98 Nasal Cannula 2.00 05/09/17 17:01 18 Nasal Cannula 2.00 05/09/17 17:01 Nasal Cannula 2.00 05/09/17 16:53 103 18 94 Room Air 05/09/17 16:51 101.3 106 18 112/60 (77) 94 Room Air 05/09/17 16:34 102.8 110 24 95/55 (68) 93 05/09/17 16:15 109 18 78/41 (53) 97 Nasal Cannula 2.00 Physical Exam GENERAL: This is a well-nourished, well-developed patient, in no apparent distress but who is drenched in sweat. SKIN: No rashes, ecchymoses or lesions. Cool and dry. HEAD: Atraumatic. Normocephalic. No temporal or scalp tenderness. EYES: Pupils equal round and reactive. Extraocular motions intact. No scleral icterus. No injection or drainage. ENT: Nose without bleeding, purulent drainage or septal hematoma. Throat without erythema, tonsillar hypertrophy or exudate. Uvula midline. Airway patent. NECK: Trachea midline. No JVD or lymphadenopathy. Supple, nontender, no meningeal signs. CARDIOVASCULAR: Regular rate and rhythm without murmurs, gallops, or rubs. RESPIRATORY: Clear to auscultation. Breath sounds equal bilaterally. No wheezes , rales, or rhonchi. GASTROINTESTINAL: Abdomen soft, non-tender, nondistended. No hepato-splenomegaly , or palpable masses. No guarding. MUSCULOSKELETAL: Extremities without clubbing, cyanosis, or edema. No joint tenderness, effusion, or edema noted. No calf tenderness. Negative Homans sign bilaterally. NEUROLOGICAL: Awake and alert. Cranial nerves II through XII intact. Motor and sensory grossly within normal limits. Five out of 5 muscle strength in all muscle groups. Normal speech. Laboratory Laboratory Tests Test 05/09/17 17:25 05/09/17 18:25 05/09/17 19:00 05/10/17 06:16 White Blood Count 5.9 5.4 Red Blood Count 3.33 2.92 Hemoglobin 10.5 9.1 Hematocrit 30.0 26.4 Mean Corpuscular Volume 90.3 90.6 Mean Corpuscular Hemoglobin 31.6 31.3 Mean Corpuscular Hemoglobin Concent 35.0 34.5 Red Cell Distribution Width 16.0 16.0 Platelet Count 108 75 Mean Platelet Volume 7.3 7.0 Neutrophils (%) (Auto) 88.3 86.8 Lymphocytes (%) (Auto) 2.4 2.7 Monocytes (%) (Auto) 8.4 10.4 Eosinophils (%) (Auto) 0.5 0.1 Basophils (%) (Auto) 0.4 0.0 Neutrophils # (Auto) 5.3 4.7 Lymphocytes # (Auto) 0.1 0.1 Monocytes # (Auto) 0.5 0.6 Eosinophils # (Auto) 0.0 0.0 Basophils # (Auto) 0.0 0.0 CBC Comment DIFF FINAL AUTO DIFF Differential Comment Prothrombin Time 10.7 Prothromb Time International Ratio 1.1 Activated Partial Thromboplast Time 19.8 Blood Urea Nitrogen 27 28 Creatinine 1.10 0.83 Random Glucose 130 148 Total Protein 6.4 5.1 Albumin 3.1 Calcium Level 8.0 7.1 Phosphorus Level 3.7 Magnesium Level 2.0 Alkaline Phosphatase 45 Aspartate Amino Transf (AST/SGOT) 22 Alanine Aminotransferase (ALT/SGPT) 15 Total Bilirubin 0.7 Sodium Level 135 143 Potassium Level 4.0 3.2 Chloride Level 104 114 Carbon Dioxide Level 20.1 18.5 Anion Gap 11 11 Estimat Glomerular Filtration Rate 49 68 Lactic Acid Level 1.2 Total Creatine Kinase 52 Troponin I LESS THAN 0.02 Lipase 74 Urine Collection Type CLEAN CATCH Urine Color YELLOW Urine Turbidity CLOUDY Urine pH 5.0 Urine Specific [place] GREATER/EQUAL 1.030 Urine Protein TRACE Urine Glucose (UA) NEG Urine Ketones NEG Urine Occult Blood LARGE Urine Nitrite NEG Urine Bilirubin NEG Urine Urobilinogen 0.2 Urine Leukocyte Esterase SMALL Urine RBC 10-14 Urine WBC 100-200 Urine WBC Clumps FEW Urine Squamous Epithelial Cells 6-8 Urine Bacteria MOD Microscopic Urinalysis Comment CULTURE INDICATED Stool C. difficile Toxin (PCR) NEGATIVE Stl C. difficile Toxin Epiderm 027 PRESUMPTIVE NEGATIVE Protein Corrected Calcium 8.2 Date/Time Source Procedure Growth Status 05/09/17 17:35 Blood Peripheral Aerobic Blood Culture Pending Received 05/09/17 17:35 Blood Peripheral Anaerobic Blood Culture Pending Received 05/09/17 19:00 Stool Stool Cryptosporidium Exam Pending Received 05/09/17 19:00 Stool Stool Giardia Antigen (JAI) Pending Received 05/09/17 17:50 Nasal Washing Influenza Types A,B Antigen (JAI) - Final Positive For Flu A Antigen Complete 05/09/17 18:25 Urine Clean Catch Urine Culture Pending Received Result Diagram: 05/10/17 0616 05/10/17 0616 Imaging Last Impressions Chest X-Ray 05/09/17 1658 Signed Impressions: Service Date/Time: Tuesday, May 09, 2017 17:04 - CONCLUSION: No acute disease. MD Sabrina Cabrera VTE Risk Assessment Sabrina VTE Risk Assessment: Mod/High Risk (score >= 2) Caprini Risk Assessment Model Point Value = 1 Point Value = 2 Point Value = 3 Point Value = 5 Age 41-60 Minor surgery BMI > 25 kg/m2 Swollen legs Varicose veins or History of unexplained or recurrent spontaneous Oral contraceptives or hormone replacement Sepsis (< 1 month) Serious lung disease, including pneumonia (< 1 month) Abnormal pulmonary function Acute myocardial infarction Congestive heart failure (< 1 month) History of inflammatory bowel disease Medical patient at bed rest Age 61-74 Arthroscopic surgery Major open surgery (> 45 min) Laparoscopic surgery (> 45 min) Malignancy Confined to bed (> 72 hours) Immobilizing plaster cast Central venous access Age >= 75 History of VTE Family history of VTE Factor V Leiden Prothrombin [id number] Lupus anticoagulant Anticardiolipin antibodies Elevated serum homocysteine Heparin-induced thrombocytopenia Other congenital or acquired thrombophilia Stroke (< 1 month) Elective arthroplasty Hip, pelvis, or leg fracture Acute spinal cord injury (< 1 month) Prophylaxis Regimen Total Risk Factor Score Risk Level Prophylaxis Regimen 0-1 Low Early ambulation 2 Moderate Order ONE of the following: *Sequential Compression Device (SCD) *Heparin 5000 units SQ BID 3-4 Higher Order ONE of the following medications: *Heparin 5000 units SQ TID *Enoxaparin/Lovenox 40 mg SQ daily (WT < 150 kg, CrCl > 30 mL/min) *Enoxaparin/Lovenox 30 mg SQ daily (WT < 150 kg, CrCl > 10-29 mL/min) *Enoxaparin/Lovenox 30 mg SQ BID (WT < 150 kg, CrCl > 30 mL/min) AND/OR *Sequential Compression Device (SCD) 5 or more Highest Order ONE of the following medications: *Heparin 5000 units SQ TID (Preferred with Epidurals) *Enoxaparin/Lovenox 40 mg SQ daily (WT < 150 kg, CrCl > 30 mL/min) *Enoxaparin/Lovenox 30 mg SQ daily (WT < 150 kg, CrCl > 10-29 mL/min) *Enoxaparin/Lovenox 30 mg SQ BID (WT < 150 kg, CrCl > 30 mL/min) AND *Sequential Compression Device (SCD) Assessment and Plan Assessment and Plan This is a 71-year-old female with history of hypertension and multiple myeloma currently being treated with chemotherapy who presented with fevers, chills and diarrhea SIRs -Patient meets SIRS criteria with a fever of 103.3 and tachycardia. Labs reviewed patient does not have a leukocytosis and lactic acid is 1.2. Chest x- ray negative. UA shows bacteriuria. Patient asymptomatic for any urinary symptoms and this was a dirty sample. Positive for influenza A. Most likely symptoms secondary to flu A. -Due to tachycardia and hypotension aggressive fluid resuscitation. Patient received a couple boluses of normal saline in the ED. Will put on normal saline IV fluids and give another 1 L normal saline bolus. -Treat empirically for UTI pending cultures. Patient was given vancomycin and aztreonam in the ED will continue with current regimen since patient is receiving chemotherapy. We will also start with Tamiflu. -Blood cultures already obtained we will follow with blood cultures. Influenza A -See treatment as above. Bacteriuria -Patient is asymptomatic. Treat empirically for UTI especially in the setting of chemotherapy. -See treatment as above. Renal insufficiency -Mild. Secondary to dehydration. Resolved. -Continue with supportive care with IV fluids. Multiple myeloma -Currently receiving chemotherapy. Oncologist already consulted. -Treatment per oncologist. Diarrhea -Most likely secondary to chemotherapy. C. difficile PCR negative. Pending stool cultures. -Since patient is negative for C. difficile and she is having watery stools about every hour we will give Imodium. -We will also give supportive care with IV fluids and encourage fluid intake. Hypokalemia/hypocalcemia -Replenish as needed. Hypertension -Since patient is hypotensive we will hold her antihypertensive medication. DVT prophylaxis -We will start on Lovenox. Discussed Condition With Patient and her daughter who is at the bedside. Physician Certification 2 Midnight Certification Type: Admission for Inpatient Services Order for Inpatient Services The services are ordered in accordance with Medicare regulations or non- Medicare payer requirements, as applicable. In the case of services not specified as inpatient-only, they are appropriately provided as inpatient services in accordance with the 2-midnight benchmark. Estimated LOS (days): 3 2 days is the estimated time the patient will need to remain in the hospital, assuming treatment plan goals are met and no additional complications. Post-Hospital Plan: Xochitl Romero MD May 10, 2017 09:12
[2017-05-10] MEDS ORDERED: CALCIUM GLUCONATE 500 MG TAB PO SCH (09:15)
[2017-05-10] MEDS ORDERED: LOPERAMIDE HCL 2 MG CAP PO ONE (09:30)
[2017-05-10] MEDS ORDERED: POTASSIUM CHLORIDE 25 MEQ EFFERVESCENT TAB PO ONE (09:30)
[2017-05-10] MEDS: ENOXAPARIN SODIUM 40 MG/0.4 ML SYRINGE SQ SCH (09:43)
--- NOTE | 2017-05-10 10:21 | EKG ---
Date Performed: 05/09/2017 Time Performed: 18:20:54 PTAGE: 71 years EKG: SINUS TACHYCARDIA ABNORMAL RHYTHM ECG INTERPRETATION BASED ON A DEFAULT AGE OF 40 YEARS PREVIOUS TRACING : 12/22/2016 16.58 DOCTOR: David Miramontes Interpretating Date/Time 05/10/2017 10:19:42
[2017-05-10] MEDS: CALCIUM CARBONATE 1.25 GM (CA 500 MG) TAB PO SCH ×2 (10:47→20:37)
[2017-05-10] MEDS: SERTRALINE HCL 50 MG TAB PO SCH (10:47)
[2017-05-10] MEDS: ALPRAZolam 0.5 MG TAB PO PRN (10:47)
[2017-05-10] MEDS: CYCLOBENZAPRINE HCL 10 MG TAB PO SCH (10:47)
[2017-05-10] MEDS: ASPIRIN 81 MG CHEW TAB CHEW SCH (10:47)
[2017-05-10] MEDS ORDERED: MEPERIDINE HCL 50 MG/ML VIAL IV PUSH ONE (13:00)
--- NOTE | 2017-05-10 14:34 | MB ---
cc: Romero Mcfarland MD DATE OF CONSULT: 05/10/2017 REASON FOR CONSULTATION: Patient with a long-standing history of lambda light chain multiple myeloma, currently under the care of Dr. Mitchel Espinosa. CURRENT TREATMENT: The patient is on systemic therapy with Cytoxan/Velcade/dexamethasone (CyBorD). CHIEF COMPLAINT: The patient reports 24-hour history of chills, rigors, fatigue and muscle pain. She also reports having generalized weakness. HISTORY OF PRESENT ILLNESS: Ms. Dudley is a very pleasant 71-year-old female who was diagnosed with IgG lambda light chain multiple myeloma in April of 2011. Her treatment history has consisted of short induction therapy with Revlimid and dexamethasone, she subsequently was initiated on Velcade and dexamethasone and then maintenance Velcade up until August of 2015. She remained off therapy between August of 2015 and October of 2016, she relapsed in October of 2016 and was initiated on systemic therapy with Cytoxan, dexamethasone and Velcade. The patient apparently had been responding well to therapy and tolerating treatment well without significant difficulties. She developed the above-noted symptoms on the night of 05/09/2017 without major adverse effects. On 05/08/2017, she developed rigors, chills and feverish-feeling. She had persistent symptoms on 05/09/2017 and came into the emergency department. Rapid nasal influenza swab was positive for influenza A, urinalysis was also positive, cultures are pending. The patient was noted to have a fever of up to 103.2 degrees Fahrenheit while in this hospital, she was mildly hypotensive and tachycardic at admission. She was resuscitated with IV fluids and has been admitted for supportive care. She has been initiated on broad spectrum antibiotics with vancomycin and aztreonam. She has also been initiated on Tamiflu. PAST MEDICAL HISTORY: 1. IgG lambda multiple myeloma. 2. Depression. 3. Osteopenia. 4. Hyperlipidemia. 5. Hypertension. 6. History of deep venous thrombosis in 2011 associated with pulmonary emboli. 7. 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 PAST SURGICAL HISTORY: 1. ORIF of left elbow. 2. Colonoscopy. 3. Kyphoplasty of L2. 4. Bone marrow biopsy. ALLERGIES: PENICILLIN. FAMILY HISTORY: Mother at the age of 65 of a gynecologic cancer. Father of prostate cancer at the age of 74. She reportedly has a brother who of upper GI malignancy which the patient thinks was pancreas cancer. SOCIAL HISTORY: The patient lives at home, she is . She is originally from [place]. 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 She previously was a smoker as well. CURRENT INPATIENT MEDICATIONS: 1. Aztreonam 2000 mg IV q. 8 hours 2. Normal saline 100 mL per hour 3. Vancomycin 1500 mg IV daily 4. Tylenol 650 mg p.o. x 1 5. Alprazolam 0.5 mg p.o. twice a day 6. Aspirin 81 mg x 1 7. Atorvastatin 40 mg p.o. at bedtime 8. Calcium carbonate 500 mg p.o. q. 12 hours 9. Flexeril 10 mg p.o. daily 10. Lovenox 40 mg subcu once a day 11. Loperamide 2 mg p.o. q. 6 hours 12. Tamiflu 75 mg p.o. twice a day 13. Potassium replacement 14. Sertraline 50 mg p.o. daily REVIEW OF SYSTEMS: Please review chief complaint and HPI, in addition to the above-noted symptoms, please note the patient reports fatigue, weakness, chills, rigors, loss of appetite, fevers. HEENT: Does report headaches, denies soreness in the throat, she reports a cough. RESPIRATORY: Difficulty breathing with exertion, denies pleuritic chest pain. CARDIOVASCULAR: Denies angina-like chest pain, PND, orthopnea. Denies lower extremity swelling. GI: Reports diarrhea, reports nausea, reports vomiting, reports poor appetite, denies abdominal distension. : No acute complaints, but her urine has been burning. 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 MUSCULOSKELETAL: She reports pain along the muscles of her shoulders and neck. PHYSICAL EXAMINATION: VITAL SIGNS: Temperature 96.4 degrees Fahrenheit, heart rate 71 beats per minute, respiratory rate 20, blood pressure 104/60, O2 SATS are 98% on room air. GENERAL PHYSICAL APPEARANCE: Ms. Dudley is an elderly lady, she is laying in bed, she is wrapped in multiple layers of blankets. She is having intense rigors, her teeth almost chattering and it is hard for her to speak full sentences due to the rigors. HEENT: Head is atraumatic, normocephalic, conjunctivae are pale, sclerae are anicteric. EOMI. PERRLA. ORAL EXAM: No pharyngeal erythema. NECK: No cervical lymphadenopathy. RESPIRATORY EXAM: On posterior exam, she has good air movement over the upper and middle lung zones, no expiratory wheezing, no crepitus. CARDIOVASCULAR: Tachycardic, regular, S1, S2. No obvious murmurs, rubs or gallops. ABDOMINAL EXAM: Protuberant belly, soft and nontender, nondistended, no palpable organ enlargement. LOWER EXTREMITIES: No pretibial edema. No calf tenderness. 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 LABORATORY DATA: Blood work dated 05/10/2017: WBC count 5.4, hemoglobin 9.1 grams per deciliter, hematocrit 26.4%, platelet count of 75, absolute neutrophil count is 4.7. Chemistries: Sodium 143, potassium 3.2, chloride 114, bicarb 18.5, BUN 28, creatinine 0.83, EGFR is 68, random glucose is 148, protein corrected calcium is 8.2, total protein is 5.1. Coags dated 05/09/2017: PT is 10.7, INR is 1.1, PTT 19.8 (low). MICROBIOLOGY: Urine cultures are pending at this time. Nasal washings positive for influenza A antigen. Blood and urine cultures are pending at this time. Stool cultures are also pending. IMAGING STUDIES: Chest x-ray dated 05/09/2017 reveals no acute disease. ASSESSMENT: Ms. Dudley is a 71-year-old female with a history of lambda light chain multiple myeloma currently on systemic therapy with CyBorD under the care of Dr. Mitchel Espinosa. Prior to this she had been on systemic therapy with Revlimid and dexamethasone in 2011 and then subsequently Velcade and dexamethasone followed by Velcade maintenance alone. She relapsed in the summer of 2016 and had since then been on the current regimen of CyBorD. The patient presents to [facility] with a 24-hour history of rigors, chills and muscle spasms. She was found to have nasal swab/nasal washings positive for influenza A and has been initiated on Tamiflu. Additionally her urinalysis was strongly positive for likely urinary tract infection. Urine cultures are pending and she is on broad spectrum antibiotics. The patient's initial presentation to the emergency department was quite traumatic with high-grade fevers, chills, rigors and hypotension. She was resuscitated with IV fluid and has been admitted to the hospital for further management. RECOMMENDATIONS: 1. Lambda light chain myeloma currently on fifth treatment with CyBorD: I have requested quantitative immunoglobulin levels to be obtained. Should she be deficient on IgG, I will infuse IVIG to help supplement her humoral immune system. 2. Continue empiric antibiotic therapy with aztreonam and vancomycin for likely underlying urinary tract infection with urosepsis. 3. For influenza A: Continue Tamiflu. Consider giving her Demerol at a low dose to help with her significant rigors. Continue IV fluid hydration. The hematology services will continue following. Romero Mcfarland MD ZL/TL/rr , 12:39 PM , 01:29 PM
[2017-05-10] MEDS: VANCOMYCIN 1,500 MG/NS 500 ML IV SCH ×2 (16:22)
[2017-05-10] MEDS: ACETAMINOPHEN 325 MG TAB PO PRN ×2 (16:23→20:35)
[2017-05-10] MEDS: ATORVASTATIN 40 MG TAB PO SCH (20:36)
[2017-05-11 00:03] VITALS: BP 108/66; PULSE 76; RESP 18; TEMP 97.8; O2SAT 97
[2017-05-11] MEDS: ALPRAZolam 0.5 MG TAB PO PRN ×2 (01:10→20:44)
[2017-05-11 01:42] LABS: IMMUNOGLOBULIN G 372 MG/DL (650-1610)
[2017-05-11 02:11] LABS: IMMUNOGLOBULIN A 38 MG/DL (85-468); IMMUNOGLOBULIN M 13 MG/DL (45-276)
[2017-05-11] MEDS: ACETAMINOPHEN 325 MG TAB PO PRN ×2 (04:03→20:53)
[2017-05-11] MEDS: AZTREONAM INJ 2,000 MG in SODIUM CHLORIDE 0.9% INJ 100 ML IV SCH ×3 (04:04→20:31)
[2017-05-11 04:25] VITALS: BP 102/68; PULSE 78; RESP 16; TEMP 102.7; O2SAT 96
[2017-05-11 06:33] LABS: HEMATOCRIT 26.5 % (35.0-46.0); HEMOGLOBIN 8.8 GM/DL (11.6-15.3); MEAN CORPUSCULAR HEMOGLOBIN 30.3 PG (27.0-34.0); MEAN CORPUSCULAR HGB CONC 33.3 % (32.0-36.0); MEAN PLATELET VOLUME 7.2 FL (7.0-11.0); PLATELET COUNT 49 TH/MM3 (150-450); RED BLOOD COUNT 2.91 MIL/MM3 (4.00-5.30); RED CELL DISTRIBUTION WIDTH 15.5 % (11.6-17.2); WHITE BLOOD COUNT 2.6 TH/MM3 (4.0-11.0)
[2017-05-11 06:53] LABS: BICARBONATE 18.5 MEQ/L (21.0-32.0); CALCIUM 7.3 MG/DL (8.5-10.1); CREATININE 0.63 MG/DL (0.50-1.00)
[2017-05-11] MEDS: SODIUM CHLOR 0.9% 1000 ML INJ 1,000 ML IV SCH ×3 (07:22→20:32)
[2017-05-11 07:26] LABS: CALCIUM-PROTEIN CORRECTED 8.3 MG/DL (8.5-10.1); TOTAL PROTEIN 5.2 GM/DL (6.4-8.2)
[2017-05-11 08:00] VITALS: BP 97/54; PULSE 79; PULSE 83; RESP 18; TEMP 98.6; O2SAT 96
[2017-05-11] MEDS: ASPIRIN 81 MG CHEW TAB CHEW SCH (09:00)
[2017-05-11] MEDS: SODIUM CHLORIDE 0.9% FLUSH 10 ML FLUSH IV FLUSH SCH ×2 (09:00→20:31)
[2017-05-11] MEDS: OSELTAMIVIR PHOSPHATE 75 MG CAP PO SCH ×2 (09:05→20:32)
[2017-05-11] MEDS: CYCLOBENZAPRINE HCL 10 MG TAB PO SCH (09:05)
[2017-05-11] MEDS: SERTRALINE HCL 50 MG TAB PO SCH (09:05)
[2017-05-11] MEDS: CALCIUM CARBONATE 1.25 GM (CA 500 MG) TAB PO SCH ×2 (09:05→20:32)
[2017-05-11] MEDS: ENOXAPARIN SODIUM 40 MG/0.4 ML SYRINGE SQ SCH (10:00)
[2017-05-11 12:00] VITALS: BP 140/73; PULSE 77; RESP 18; TEMP 100; O2SAT 94
--- NOTE | 2017-05-11 13:14 | HHI.PR ---
Subjective Remarks Patient seen in follow-up for influenza related sepsis. Overall patient's feels better but has a temperature of 102.7, her blood pressures in the 90s and she is leukopenic. B her diarrhea has improved and her appetite has improved. She is complaining of a headache today Objective Vitals Vital Signs Date Time Temp Pulse Resp B/P (MAP) Pulse Ox O2 Delivery O2 Flow Rate FiO2 05/11/17 08:00 98.6 79 18 97/54 (68) 96 05/11/17 08:00 83 05/11/17 04:25 102.7 78 16 102/68 (79) 96 05/11/17 00:03 97.8 76 18 108/66 (80) 97 05/10/17 20:16 100.7 86 20 94/60 (71) 97 05/10/17 20:05 81 05/10/17 17:02 18 05/10/17 17:02 20 05/10/17 15:50 102.1 115 20 128/60 (82) 91 I/O 05/10/17 05/10/17 05/10/17 05/11/17 05/11/17 05/11/17 06:59 14:59 22:59 06:59 14:59 22:59 Intake Total 912 ml 2120 ml 806 ml Balance 912 ml 2120 ml 806 ml Intake Oral 1620 ml IV Total 912 ml 500 ml 806 ml # Voids 2 6 3 # Bowel Movements 5 0 Result Diagram: 05/11/17 0518 05/11/17 0518 Objective Remarks GENERAL: This is a well-nourished, well-developed patient, feeling better today but still very weak CARDIOVASCULAR: Regular rate and rhythm without murmurs, gallops, or rubs. RESPIRATORY: Clear to auscultation. Breath sounds equal bilaterally. No wheezes , rales, or rhonchi. GASTROINTESTINAL: Abdomen soft, non-tender, nondistended. Normal active bowel sounds MUSCULOSKELETAL: Extremities without clubbing, cyanosis, or edema. NEURO: Alert & Oriented x4 to person, place, time, situation. Moves all ext x4 A/P Problem List: (1) UTI (urinary tract infection) ICD Code: N39.0 - Urinary tract infection, site not specified Status: Acute Plan: With sepsis, continue current antibiotics for urinary tract infection with E. coli (2) Sepsis ICD Code: A41.9 - Sepsis, unspecified organism Status: Acute Plan: Multifactorial due to bacteremia, UTI and influenza Continue Tamiflu, current antibiotics for E. coli (vancomycin, aztreonam) until sensitivities from bacteria are resulted ID consult pending PCN allergy (3) Bacteremia ICD Code: R78.81 - Bacteremia Plan: Likely secondary to urinary tract infection, will follow up cultures and sensitivities as they return for now continue current antibiotic therapy PCN allergy (4) Diarrhea ICD Code: R19.7 - Diarrhea, unspecified Status: Acute Plan: Does not appear infectious, continue supportive care and improved with antidiarrheals (5) Multiple myeloma ICD Code: C90.00 - Multiple myeloma not having achieved remission Plan: Currently in chemotherapy (6) Pancytopenia ICD Code: D61.818 - Other pancytopenia Plan: Likely multifactorial due to sepsis and recent chemotherapy, continueClose observation with transfusions as needed Hematology consult pending Marysol Mcmullen MD May 11, 2017 13:14
[2017-05-11] MEDS ORDERED: ACETAMINOPHEN 500 MG CPLT PO ONE (13:15)
[2017-05-11] MEDS: VANCOMYCIN 1,500 MG/NS 500 ML IV SCH ×2 (14:26)
[2017-05-11 16:00] VITALS: BP 136/67; PULSE 74; RESP 16; TEMP 98.7; O2SAT 95
--- NOTE | 2017-05-11 19:11 | PD.ONC.PN ---
Subjective Subjective Remarks Pt seen and examined, VS, labs, microbiology, medications reviewed. THe pt reports feeling much improved compared to yesterday. She tells me she is no longer having writers but continues to have fevers and is currently sweating after she received Tylenol which broke the fever. Her son and [id number] are at bedside. Blood cultures 2 are now growing gram-negative rods, urine culture positive for Escherichia coli. Objective Data Date Time Temp Pulse Resp B/P (MAP) Pulse Ox O2 Delivery O2 Flow Rate FiO2 05/11/17 16:00 98.7 74 16 136/67 (90) 95 05/11/17 12:00 100.0 77 18 140/73 (95) 94 05/11/17 08:00 98.6 79 18 97/54 (68) 96 05/11/17 08:00 83 05/11/17 04:25 102.7 78 16 102/68 (79) 96 05/11/17 00:03 97.8 76 18 108/66 (80) 97 05/10/17 20:16 100.7 86 20 94/60 (71) 97 05/10/17 20:05 81 05/11/17 05/11/17 05/11/17 07:00 15:00 23:00 Intake Total 806 ml 955 ml Balance 806 ml 955 ml Result Diagram: 05/11/17 0518 05/11/17 0518 Laboratory Results Laboratory Tests Test 05/11/17 05:18 White Blood Count 2.6 TH/MM3 Red Blood Count 2.91 MIL/MM3 Hemoglobin 8.8 GM/DL Hematocrit 26.5 % Mean Corpuscular Volume 91.0 FL Mean Corpuscular Hemoglobin 30.3 PG Mean Corpuscular Hemoglobin Concent 33.3 % Red Cell Distribution Width 15.5 % Platelet Count 49 TH/MM3 Mean Platelet Volume 7.2 FL Blood Urea Nitrogen 17 MG/DL Creatinine 0.63 MG/DL Random Glucose 94 MG/DL Total Protein 5.2 GM/DL Calcium Level 7.3 MG/DL Sodium Level 140 MEQ/L Potassium Level 3.5 MEQ/L Chloride Level 114 MEQ/L Carbon Dioxide Level 18.5 MEQ/L Anion Gap 8 MEQ/L Estimat Glomerular Filtration Rate 94 ML/MIN Protein Corrected Calcium 8.3 MG/DL Culture Results Microbiology Date/Time Source Procedure Growth Status 05/09/17 17:35 Blood Peripheral Aerobic Blood Culture - Preliminary Gram Negative Cj Resulted 05/09/17 17:35 Blood Peripheral Anaerobic Blood Culture - Preliminary NO GROWTH IN 2 DAYS Resulted 05/09/17 17:25 Blood Peripheral Aerobic Blood Culture - Preliminary Gram Negative Cj Resulted 05/09/17 17:25 Blood Peripheral Anaerobic Blood Culture - Preliminary NO GROWTH IN 2 DAYS Resulted 05/09/17 19:00 Stool Stool Cryptosporidium Exam - Final NEGATIVE - NO CRYPTOSPORIDIUM ANTIGEN... Complete 05/09/17 19:00 Stool Stool Giardia Antigen (JAI) - Final NEGATIVE - NO GIARDIA ANTIGEN DETECTE... Complete 05/09/17 17:50 Nasal Washing Influenza Types A,B Antigen (JAI) - Final Positive For Flu A Antigen Complete 05/09/17 18:25 Urine Clean Catch Urine Culture - Final Escherichia Coli Complete Administered Medications Medications (Trade) Dose Ordered Sig/Jess Route PRN Reason Start Time Stop Time Status Last Admin Dose Admin Sodium Chloride 1,000 ml @ 150 mls/hr Q6H40M IV 05/09/17 20:51 05/11/17 14:02 Sodium Chloride (NS Flush) 2 ml BID IV FLUSH 05/09/17 21:00 05/10/17 20:38 Acetaminophen (Tylenol) 650 mg Q4H PRN PO TEMP > 100.4 or headache 05/09/17 21:00 05/11/17 04:03 Ondansetron HCl (Zofran Inj) 4 mg Q6H PRN IVP NAUSEA OR VOMITING 05/09/17 21:00 05/10/17 16:23 Aztreonam 2000 mg/ Sodium Chloride 100 ml @ 200 mls/hr Q8H IV 05/10/17 04:00 05/11/17 13:01 Vancomycin HCl 1500 mg/Sodium Chloride 515 ml @ 257.5 mls/ hr DAILY@1500 IV 05/10/17 15:00 05/11/17 14:26 Oseltamivir Phosphate (Tamiflu) 75 mg BID PO 05/10/17 01:15 05/11/17 09:05 Loperamide HCl (Imodium) 2 mg Q6H PRN PO diarrhea 05/10/17 09:00 05/10/17 16:23 Alprazolam (Xanax) 0.5 mg BID PRN PO ANXIETY 05/10/17 09:00 05/11/17 01:10 Aspirin (Aspirin Chew) 81 mg DAILY CHEW 05/10/17 10:00 05/10/17 10:47 Atorvastatin Calcium (Lipitor) 40 mg HS PO 05/10/17 21:00 05/10/17 20:36 Cyclobenzaprine HCl (Flexeril) 10 mg DAILY PO 05/10/17 10:00 05/11/17 09:05 Sertraline HCl (Zoloft) 50 mg DAILY PO 05/10/17 10:00 05/11/17 09:05 Enoxaparin Sodium (Lovenox Inj) 40 mg Q24H SQ 05/10/17 10:00 05/10/17 09:43 Calcium Carbonate (Oscal) 500 mg Q12HR PO 05/10/17 10:00 05/11/17 09:05 Objective Remarks GENERAL PHYSICAL APPEARANCE: Ms. Dudley is an elderly lady, she is laying in bed, she is awake, alert and oriented. She is able to converse in full sentences today. She appears to be no acute distress. HEENT: Head is atraumatic, normocephalic, conjunctivae are pale, sclerae are anicteric. EOMI. PERRLA. ORAL EXAM: No pharyngeal erythema. NECK: No cervical lymphadenopathy. RESPIRATORY EXAM: On posterior exam, she has good air movement over the upper and middle lung zones, no expiratory wheezing, no crepitus. CARDIOVASCULAR: Tachycardic, regular, S1, S2. No obvious murmurs, rubs or gallops. ABDOMINAL EXAM: Protuberant belly, soft and nontender, nondistended, no palpable organ enlargement. LOWER EXTREMITIES: No pretibial edema. No calf tenderness. BACK SEWER: No focal sensory motor deficits. Assessment/Plan Assessment Ms. Dudley is a 71-year-old female with a history of lambda light chain multiple myeloma currently on systemic therapy with CyBorD under the care of Dr. Mitchel Espinosa. Prior to this she had been on systemic therapy with Revlimid and dexamethasone in 2011 and then subsequently Velcade and dexamethasone followed by Velcade maintenance alone. She relapsed in the summer of 2016 and had since then been on the current regimen of CyBorD. The patient presents to [facility] with a 24-hour history of rigors, chills and muscle spasms. She was found to have nasal swab/nasal washings positive for influenza A and has been initiated on Tamiflu. Additionally her urinalysis was strongly positive for likely urinary tract infection. Urine cultures are pending and she is on broad spectrum antibiotics. The patient's initial presentation to the emergency department was quite traumatic with high-grade fevers, chills, rigors and hypotension. She was resuscitated with IV fluid and has been admitted to the hospital for further management. Plan Multiple myeloma: Systemic therapy on hold at this time. She had been responding well to CyBorD. 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 Gram-negative bacteremia: On gram-positive and gram-negative IV antibiotic coverage. Influenza a positive nasal swab: On Tamiflu. Disposition: Clinically she appears improved when compared to yesterday. Continue ongoing care and broad-spectrum antibiotic coverage. 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 Espinosa has been made aware for hospitalization and sepsis. Romero Mcfarland MD May 11, 2017 19:11
[2017-05-11 20:00] VITALS: BP 132/63; PULSE 73; PULSE 90; RESP 17; TEMP 98.1; O2SAT 96
--- NOTE | 2017-05-11 20:24 | HHI.PR ---
Addendum to Inpatient Note Additional Information seen today around 7 pm full note to follow Rossi Michel MD May 11, 2017 20:24
--- NOTE | 2017-05-11 20:25 | PD.ID.CON ---
History of Present Illness Service ID Consult Requested By Dr Mcmullen Reason for Consult Flu, and gram negative sepsis Primary Care Physician Brianna Posey MD Diagnoses: History of Present Illness 71 yo with multiple med problems IgG lambda light chain multiple myeloma in April of 2011. she is on chemo therapy On 05/08/2017, she developed rigors, chills and feverish-feeling. She was diagnosed with influenza A and stated on Tamiflu She had fever of up to 103.2 degrees Fahrenheit while in this hospital, she was hypotensive and tachycardic at admission. She was started on broad spectrum antibiotics with vancomycin and aztreonam. She is allergic on penicillin Blood cultures are growing a GNR in both sets and E.coli in the urine She has difficulty voiding Review of Systems Constitutional: COMPLAINS OF: Fever Gastrointestinal: COMPLAINS OF: Diarrhea Genitourinary: COMPLAINS OF: Urinary incontinence, Dysuria Except as stated in HPI: all other systems reviewed are Neg Past Family Social History Allergies: Coded Allergies: penicillin G (Unverified Allergy, Severe, 05/09/17) Past Medical History 1. IgG lambda multiple myeloma. 2. Depression. 3. Osteopenia. 4. Hyperlipidemia. 5. Hypertension. 6. History of deep venous thrombosis in 2011 associated with pulmonary emboli. 7. 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 Past Surgical History 1. ORIF of left elbow. 2. Colonoscopy. 3. Kyphoplasty of L2. 4. Bone marrow biopsy. Active Ordered Medications Medications where reviewed in EMR Antibiotics Include: azactam vanco tamiflu Family History Mother at the age of 65 of a gynecologic cancer. Father of prostate cancer at the age of 74. a brother of upper GI malignancy which the patient thinks was pancreas cancer. Social History The patient lives at home, she is . She is originally from [place]. 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 She previously was a smoker as Physical Exam Vital Signs Vital Signs Date Time Temp Pulse Resp B/P (MAP) Pulse Ox O2 Delivery O2 Flow Rate FiO2 05/11/17 16:00 98.7 74 16 136/67 (90) 95 05/11/17 12:00 100.0 77 18 140/73 (95) 94 05/11/17 08:00 98.6 79 18 97/54 (68) 96 05/11/17 08:00 83 05/11/17 04:25 102.7 78 16 102/68 (79) 96 05/11/17 00:03 97.8 76 18 108/66 (80) 97 Physical Exam CONSTITUTIONAL/GENERAL: This is a morbidly obese female patient, in no apparent distress. TUBES/LINES/DRAINS: SKIN: No jaundice, rashes, or lesions. Skin temperature appropriate. Not diaphoretic. HEAD: Atraumatic. Normocephalic. EYES: Pupils equal and round and reactive. Extraocular motions intact. No scleral icterus. No injection or drainage. Fundi not examined. ENT: Hearing grossly normal. Nose without bleeding or purulent drainage. Throat without visible erythema, exudates, masses, or lesions. NECK: Trachea midline. Supple, nontender. No palpable thyroid enlargement or nodularity. CARDIOVASCULAR: Regular rate and rhythm without murmurs, gallops, or rubs. No JVD. Peripheral pulses symmetric. RESPIRATORY/CHEST: Symmetric, unlabored respirations. Clear to auscultation. Breath sounds equal bilaterally. No wheezes, rales, or rhonchi. GASTROINTESTINAL: Abdomen soft, non-tender, nondistended. MOrbidly obeseNo hepato-splenomegaly, or palpable masses. No guarding. Bowel sounds present. GENITOURINARY: Without palpable bladder distension - morbidly obese MUSCULOSKELETAL: Extremities without clubbing, cyanosis, or edema. No joint tenderness or effusion noted. No calf tenderness. No mottling or clubbing. LYMPHATICS: No palpable cervical or supraclavicular adenopathy. NEUROLOGICAL: Awake and alert. Motor and sensory grossly within normal limits. Follows commands. Clear speech . Moves all extremities. PSYCHIATRIC: No obvious anxiety/depression. no apparent hallucinations or other psychotic thought process. Laboratory Laboratory Tests Test 05/11/17 05:18 White Blood Count 2.6 Red Blood Count 2.91 Hemoglobin 8.8 Hematocrit 26.5 Mean Corpuscular Volume 91.0 Mean Corpuscular Hemoglobin 30.3 Mean Corpuscular Hemoglobin Concent 33.3 Red Cell Distribution Width 15.5 Platelet Count 49 Mean Platelet Volume 7.2 Blood Urea Nitrogen 17 Creatinine 0.63 Random Glucose 94 Total Protein 5.2 Calcium Level 7.3 Sodium Level 140 Potassium Level 3.5 Chloride Level 114 Carbon Dioxide Level 18.5 Anion Gap 8 Estimat Glomerular Filtration Rate 94 Protein Corrected Calcium 8.3 Date/Time Source Procedure Growth Status 05/09/17 17:35 Blood Peripheral Aerobic Blood Culture - Preliminary Gram Negative Cj Resulted 05/09/17 17:35 Blood Peripheral Anaerobic Blood Culture - Preliminary NO GROWTH IN 2 DAYS Resulted 05/09/17 19:00 Stool Stool Cryptosporidium Exam - Final NEGATIVE - NO CRYPTOSPORIDIUM ANTIGEN... Complete 05/09/17 19:00 Stool Stool Giardia Antigen (JAI) - Final NEGATIVE - NO GIARDIA ANTIGEN DETECTE... Complete 05/09/17 17:50 Nasal Washing Influenza Types A,B Antigen (JAI) - Final Positive For Flu A Antigen Complete 05/09/17 18:25 Urine Clean Catch Urine Culture - Final Escherichia Coli Complete Result Diagram: 05/11/17 0518 05/11/1718 Imaging Last Impressions Chest X-Ray 05/09/17 1658 Signed Impressions: Service Date/Time: Tuesday, May 09, 2017 17:04 - CONCLUSION: No acute disease. Bernardino Bynum MD Assessment and Plan Assessment and Plan Influenza A - improved clinically on tamiflu UTI E.coli, bacteremic cont tamiflu cont azactam dc vancomycin fu blod clx Discussed Condition With family @ b/s Rossi Michel MD May 11, 2017 20:25
[2017-05-11] MEDS: ATORVASTATIN 40 MG TAB PO SCH (20:32)
[2017-05-12 04:00] VITALS: BP 122/76; PULSE 83; RESP 17; TEMP 97.9; O2SAT 96
[2017-05-12] MEDS: SODIUM CHLOR 0.9% 1000 ML INJ 1,000 ML IV SCH ×4 (04:13→20:52)
[2017-05-12] MEDS: AZTREONAM INJ 2,000 MG in SODIUM CHLORIDE 0.9% INJ 100 ML IV SCH ×3 (04:13→20:37)
[2017-05-12 08:00] VITALS: BP 143/73; PULSE 82; PULSE 85; RESP 20; TEMP 100; O2SAT 96
[2017-05-12] MEDS: SODIUM CHLORIDE 0.9% FLUSH 10 ML FLUSH IV FLUSH SCH ×2 (09:00→20:37)
[2017-05-12] MEDS: ASPIRIN 81 MG CHEW TAB CHEW SCH (09:00)
[2017-05-12] MEDS: CALCIUM CARBONATE 1.25 GM (CA 500 MG) TAB PO SCH ×2 (09:29→20:42)
[2017-05-12] MEDS: OSELTAMIVIR PHOSPHATE 75 MG CAP PO SCH ×2 (09:29→20:38)
[2017-05-12] MEDS: SERTRALINE HCL 50 MG TAB PO SCH (09:29)
[2017-05-12] MEDS: CYCLOBENZAPRINE HCL 10 MG TAB PO SCH (09:29)
[2017-05-12] MEDS: ENOXAPARIN SODIUM 40 MG/0.4 ML SYRINGE SQ SCH (09:30)
[2017-05-12 12:00] VITALS: BP 120/80; PULSE 71; RESP 18; TEMP 99.8; O2SAT 99
--- NOTE | 2017-05-12 12:24 | HHI.PR ---
Subjective Remarks Patient seen in follow-up for sepsis secondary to flu a and UTI, continues on his activity Tamiflu without difficulty. Says she feels better today although count still remains neutropenic. No fevers Objective Vitals Vital Signs Date Time Temp Pulse Resp B/P (MAP) Pulse Ox O2 Delivery O2 Flow Rate FiO2 05/12/17 08:00 100.0 85 20 143/73 (96) 96 05/12/17 04:00 97.9 83 17 122/76 (91) 96 05/11/17 20:00 98.1 90 17 132/63 (86) 96 05/11/17 20:00 73 05/11/17 16:00 98.7 74 16 136/67 (90) 95 I/O 05/11/17 05/11/17 05/11/17 05/12/17 05/12/17 05/12/17 07:00 15:00 23:00 07:00 15:00 23:00 Intake Total 806 ml 1055 ml 1734 ml Balance 806 ml 1055 ml 1734 ml IV Total 806 ml 1055 ml 1734 ml # Voids 3 # Bowel Movements 0 Result Diagram: 05/11/17 0518 05/11/17 0518 Imaging Last Impressions Chest X-Ray 05/09/17 1658 Signed Impressions: Service Date/Time: Tuesday, May 09, 2017 17:04 - CONCLUSION: No acute disease. Bernardino Bynum MD Objective Remarks GENERAL: This is a elderly, well-developed patient, feeling better today but still very weak CARDIOVASCULAR: Regular rate and rhythm without murmurs, gallops, or rubs. RESPIRATORY: Clear to auscultation. Breath sounds equal bilaterally. No wheezes , rales, or rhonchi. GASTROINTESTINAL: Abdomen soft, non-tender, nondistended. Normal active bowel sounds MUSCULOSKELETAL: Extremities without clubbing, cyanosis, or edema. NEURO: Alert & Oriented x4 to person, place, time, situation. Moves all ext x4 A/P Problem List: (1) UTI (urinary tract infection) ICD Code: N39.0 - Urinary tract infection, site not specified Status: Acute Plan: With resolving sepsis, continue azotreoman., ID consult appreciated (2) Sepsis ICD Code: A41.9 - Sepsis, unspecified organism Status: Acute Plan: Multifactorial due to bacteremia, UTI and influenza Continue Tamiflu, current azotreonam for E. coli (3) Bacteremia ICD Code: R78.81 - Bacteremia Plan: Likely secondary to urinary tract infection, continue current antibiotic regimen PCN allergy (4) Diarrhea ICD Code: R19.7 - Diarrhea, unspecified Status: Acute Plan: Does not appear infectious, continue supportive care and improved with antidiarrheals (5) Multiple myeloma ICD Code: C90.00 - Multiple myeloma not having achieved remission Plan: Patient follows up with Dr. Ann, systemic therapy has been on hold and she will follow-up with Dr. Espinosa once she is discharged (6) Pancytopenia ICD Code: D61.818 - Other pancytopenia Plan: Likely multifactorial due to sepsis and recent chemotherapy, continue Close observation with transfusions as needed Hematology consult appreciated Discharge Planning Home pending improvement of counts, neutropenia Likely home with home health Marysol Mcmullen MD May 12, 2017 12:24
[2017-05-12] MEDS: ACETAMINOPHEN/HYDROcodone 325 MG/5 MG TAB PO PRN ×2 (14:24→20:38)
[2017-05-12 16:00] VITALS: BP 122/70; PULSE 72; RESP 18; TEMP 97.8; O2SAT 95
--- NOTE | 2017-05-12 18:00 | PD.ONC.PN ---
Subjective Subjective Remarks Feeling better. "I don't take transfusions" Objective Data Date Time Temp Pulse Resp B/P (MAP) Pulse Ox O2 Delivery O2 Flow Rate FiO2 05/12/17 16:00 97.8 72 18 122/70 (87) 95 05/12/17 15:35 18 05/12/17 12:00 99.8 71 18 120/80 (93) 99 05/12/17 08:00 100.0 85 20 143/73 (96) 96 05/12/17 04:00 97.9 83 17 122/76 (91) 96 05/11/17 20:00 98.1 90 17 132/63 (86) 96 05/11/17 20:00 73 05/12/17 05/12/17 05/12/17 07:00 15:00 23:00 Intake Total 1734 ml 420 ml Balance 1734 ml 420 ml Result Diagram: 05/11/17 0518 05/11/17 0518 Culture Results Microbiology Date/Time Source Procedure Growth Status 05/09/17 19:00 Stool Stool Cryptosporidium Exam - Final NEGATIVE - NO CRYPTOSPORIDIUM ANTIGEN... Complete 05/09/17 19:00 Stool Stool Giardia Antigen (JAI) - Final NEGATIVE - NO GIARDIA ANTIGEN DETECTE... Complete 05/09/17 18:25 Urine Clean Catch Urine Culture - Final Escherichia Coli Complete Administered Medications Medications (Trade) Dose Ordered Sig/Jess Route PRN Reason Start Time Stop Time Status Last Admin Dose Admin Sodium Chloride 1,000 ml @ 150 mls/hr Q6H40M IV 05/09/17 20:51 05/12/17 15:35 Sodium Chloride (NS Flush) 2 ml UNSCH PRN IV FLUSH FLUSH AFTER USING IV ACCESS 05/09/17 21:00 05/12/17 04:13 Sodium Chloride (NS Flush) 2 ml BID IV FLUSH 05/09/17 21:00 05/11/17 20:31 Acetaminophen (Tylenol) 650 mg Q4H PRN PO TEMP > 100.4 or headache 05/09/17 21:00 05/11/17 20:53 Ondansetron HCl (Zofran Inj) 4 mg Q6H PRN IVP NAUSEA OR VOMITING 05/09/17 21:00 05/10/17 16:23 Aztreonam 2000 mg/ Sodium Chloride 100 ml @ 200 mls/hr Q8H IV 05/10/17 04:00 05/12/17 11:43 Oseltamivir Phosphate (Tamiflu) 75 mg BID PO 05/10/17 01:15 05/12/17 09:29 Loperamide HCl (Imodium) 2 mg Q6H PRN PO diarrhea 05/10/17 09:00 05/10/17 16:23 Alprazolam (Xanax) 0.5 mg BID PRN PO ANXIETY 05/10/17 09:00 05/11/17 20:44 Aspirin (Aspirin Chew) 81 mg DAILY CHEW 05/10/17 10:00 05/10/17 10:47 Atorvastatin Calcium (Lipitor) 40 mg HS PO 05/10/17 21:00 05/11/17 20:32 Cyclobenzaprine HCl (Flexeril) 10 mg DAILY PO 05/10/17 10:00 05/12/17 09:29 Sertraline HCl (Zoloft) 50 mg DAILY PO 05/10/17 10:00 05/12/17 09:29 Enoxaparin Sodium (Lovenox Inj) 40 mg Q24H SQ 05/10/17 10:00 05/10/17 09:43 Calcium Carbonate (Oscal) 500 mg Q12HR PO 05/10/17 10:00 05/12/17 09:29 Acetaminophen/ Hydrocodone Bitart ([place] 5-325 Mg) 1 tab Q4H PRN PO pain 05/12/17 15:00 05/12/17 14:24 Objective Remarks GENERAL: Well-nourished, elderly woman, well-developed patient. SKIN: Warm and dry. HEAD: Normocephalic. No wet purpura. EYES: No scleral icterus. No injection or drainage. NECK: Supple, trachea midline. No JVD or lymphadenopathy. LYMPHATIC: No adenopathy. CARDIOVASCULAR: Regular rate and rhythm without murmurs. RESPIRATORY: Breath sounds equal bilaterally. No accessory muscle use. GASTROINTESTINAL: Abdomen soft, non-tender, nondistended. EXTREMITIES: No cyanosis, or edema. No petechiae. MUSCULOSKELETAL: Adequate muscle tone. NEUROLOGICAL: No obvious focal deficit. Awake, alert, and oriented x3. Assessment/Plan Assessment Ms. Dudley is a 71-year-old female with a history of lambda light chain multiple myeloma currently on systemic therapy with CyBorD under the care of Dr. Mitchel Espinosa. Prior therapy with Revlimid and dexamethasone in 2011, then Velcade and dexamethasone followed by Velcade maintenance. She relapsed summer started on CyBorD. Admitted with influenza and UTI gm neg bacteremia. Abx per ID. Fever improve. Clinically improve. Plan Multiple myeloma: Hold CyBorD. 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 Gram-negative bacteremia: Ecoli bacteremia Influenza a positive nasal swab: On Tamiflu. Defer CBC since she will never take transfusion. Monitor clinically. 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 Espinosa. Nalini Torres MD May 12, 2017 18:00
[2017-05-12 20:00] VITALS: BP 126/66; PULSE 81; RESP 20; TEMP 98.7; O2SAT 96
[2017-05-12] MEDS: ALPRAZolam 0.5 MG TAB PO PRN (20:36)
[2017-05-12] MEDS: ATORVASTATIN 40 MG TAB PO SCH (20:37)
[2017-05-13] VITALS: BP 130/56; PULSE 83; RESP 20; TEMP 98.7; O2SAT 96
[2017-05-13 04:00] VITALS: BP 140/78; PULSE 76; RESP 20; TEMP 98.4; O2SAT 94
[2017-05-13] MEDS: ACETAMINOPHEN/HYDROcodone 325 MG/5 MG TAB PO PRN ×4 (04:08→21:19)
[2017-05-13] MEDS: AZTREONAM INJ 2,000 MG in SODIUM CHLORIDE 0.9% INJ 100 ML IV SCH ×3 (04:09→21:08)
[2017-05-13] MEDS: SODIUM CHLOR 0.9% 1000 ML INJ 1,000 ML IV SCH ×2 (04:09→14:42)
[2017-05-13 06:59] LABS: AUTOMATED NEUTROPHIL # 1.7 TH/MM3 (1.8-7.7); BASOPHIL % 0.1 % (0.0-2.0); EOSINOPHIL # 0.1 TH/MM3 (0-0.4); EOSINOPHIL % 5.3 % (0.0-4.0); HEMATOCRIT 23.8 % (35.0-46.0); HEMOGLOBIN 8.3 GM/DL (11.6-15.3); LYMPH % 9.7 % (9.0-44.0); LYMPHOCYTE # 0.2 TH/MM3 (1.0-4.8); MEAN CELL VOLUME 90.7 FL (80.0-100.0); MEAN CORPUSCULAR HEMOGLOBIN 31.8 PG (27.0-34.0); MEAN CORPUSCULAR HGB CONC 35.1 % (32.0-36.0); MEAN PLATELET VOLUME 7.6 FL (7.0-11.0); MONO % 11.9 % (0.0-8.0); MONOCYTE # 0.3 TH/MM3 (0-0.9); PLATELET COUNT 55 TH/MM3 (150-450); RED BLOOD COUNT 2.62 MIL/MM3 (4.00-5.30); RED CELL DISTRIBUTION WIDTH 15.3 % (11.6-17.2); WHITE BLOOD COUNT 2.3 TH/MM3 (4.0-11.0)
[2017-05-13 08:00] VITALS: BP 130/80; PULSE 72; RESP 18; TEMP 98.6; O2SAT 96
--- NOTE | 2017-05-13 08:34 | HHI.IDPN ---
Subjective Subjective Remarks Feels better No pain in kidney area No fever - 24 hrs Antibiotics Aztreonam Lines Peripheral Past Medical History Multiple myeloma Depression Anxiety Hypertension Past Surgical History Surgery on her left elbow Surgery on her back due to multiple myeloma in 2012 Allergies: Coded Allergies: penicillin G (Unverified Allergy, Severe, 05/09/17) Objective . Vital Signs Date Time Temp Pulse Resp B/P (MAP) Pulse Ox O2 Delivery O2 Flow Rate FiO2 05/13/17 08:00 98.6 72 18 130/80 (97) 96 05/13/17 04:00 98.4 76 20 140/78 (98) 94 05/13/17 00:00 98.7 83 20 130/56 (80) 96 05/12/17 20:00 98.7 81 20 126/66 (86) 96 Automatic Cuff 05/12/17 16:00 97.8 72 18 122/70 (87) 95 05/12/17 15:35 18 05/12/17 12:00 99.8 71 18 120/80 (93) 99 . Laboratory Tests Test 05/13/17 06:20 White Blood Count 2.3 TH/MM3 Red Blood Count 2.62 MIL/MM3 Hemoglobin 8.3 GM/DL Hematocrit 23.8 % Mean Corpuscular Volume 90.7 FL Mean Corpuscular Hemoglobin 31.8 PG Mean Corpuscular Hemoglobin Concent 35.1 % Red Cell Distribution Width 15.3 % Platelet Count 55 TH/MM3 Mean Platelet Volume 7.6 FL Neutrophils (%) (Auto) 73.0 % Lymphocytes (%) (Auto) 9.7 % Monocytes (%) (Auto) 11.9 % Eosinophils (%) (Auto) 5.3 % Basophils (%) (Auto) 0.1 % Neutrophils # (Auto) 1.7 TH/MM3 Lymphocytes # (Auto) 0.2 TH/MM3 Monocytes # (Auto) 0.3 TH/MM3 Eosinophils # (Auto) 0.1 TH/MM3 Basophils # (Auto) 0.0 TH/MM3 CBC Comment AUTO DIFF Differential Comment AUTO DIFF CONFIRMED Platelet Estimate LOW Platelet Morphology Comment NORMAL Physical Exam GENERAL: This is a elderly, well-developed patient, feeling better k CARDIOVASCULAR: Regular rate and rhythm without murmurs, gallops, or rubs. RESPIRATORY: Clear to auscultation. Breath sounds equal bilaterally. No wheezes , rales, or rhonchi. GASTROINTESTINAL: Abdomen soft, non-tender, nondistended. Normal active bowel sounds MUSCULOSKELETAL: Extremities without clubbing, cyanosis, or edema. NEURO: Alert & Oriented x4 to person, place, time, situation. Moves all ext x4 Assessment & Plan Diagnosis: (1) Sepsis ICD Codes: A41.9 - Sepsis, unspecified organism Status: Acute Plan: Finish 5 day course of Tamiflu Continue Aztreonam Add PO Cipro Re check Blood culture and UAC- if they say negative- and pt remains afebrile can finish a 10 day course of Cipro (2) UTI (urinary tract infection) ICD Codes: N39.0 - Urinary tract infection, site not specified Status: Acute (3) Bacteremia ICD Codes: R78.81 - Bacteremia Status: Acute (4) Multiple myeloma ICD Codes: C90.00 - Multiple myeloma not having achieved remission Betty Gibson MD May 13, 2017 08:34
[2017-05-13] MEDS: ASPIRIN 81 MG CHEW TAB CHEW SCH (09:31)
[2017-05-13] MEDS: SODIUM CHLORIDE 0.9% FLUSH 10 ML FLUSH IV FLUSH SCH ×2 (09:31→20:32)
[2017-05-13] MEDS: CALCIUM CARBONATE 1.25 GM (CA 500 MG) TAB PO SCH ×2 (09:31→21:07)
[2017-05-13] MEDS: OSELTAMIVIR PHOSPHATE 75 MG CAP PO SCH ×2 (09:31→21:08)
[2017-05-13] MEDS: SERTRALINE HCL 50 MG TAB PO SCH (09:32)
[2017-05-13] MEDS: CYCLOBENZAPRINE HCL 10 MG TAB PO SCH (09:32)
[2017-05-13] MEDS: ENOXAPARIN SODIUM 40 MG/0.4 ML SYRINGE SQ SCH (09:32)
[2017-05-13] MEDS: CIPROFLOXACIN 500 MG TAB PO SCH ×2 (09:32→21:07)
[2017-05-13] MEDS: ALPRAZolam 0.5 MG TAB PO PRN ×2 (09:40→21:09)
[2017-05-13 12:00] VITALS: BP 130/84; PULSE 83; RESP 20; TEMP 99.3; O2SAT 96
--- NOTE | 2017-05-13 12:53 | HHI.PR ---
Subjective Remarks Patient is greatly improved today and is seen in follow-up for bacteremia, urinary tract infection and influenza. Tolerating antibiotics well. Discharge discussed with patient and family. She will need to complete clearance of her bacteremia. She expressed understanding. Objective Vitals Vital Signs Date Time Temp Pulse Resp B/P (MAP) Pulse Ox O2 Delivery O2 Flow Rate FiO2 05/13/17 12:00 99.3 83 20 130/84 (99) 96 05/13/17 08:00 98.6 72 18 130/80 (97) 96 05/13/17 04:00 98.4 76 20 140/78 (98) 94 05/13/17 00:00 98.7 83 20 130/56 (80) 96 05/12/17 20:00 98.7 81 20 126/66 (86) 96 Automatic Cuff 05/12/17 16:00 97.8 72 18 122/70 (87) 95 05/12/17 15:35 18 I/O 05/12/17 05/12/17 05/12/17 05/13/17 05/13/17 05/13/17 07:00 15:00 23:00 07:00 15:00 23:00 Intake Total 1734 ml 520 ml 1100 ml 1905 ml Balance 1734 ml 520 ml 1100 ml 1905 ml Intake Oral 420 ml 120 ml IV Total 1734 ml 100 ml 1100 ml 1785 ml # Voids 2 3 # Bowel Movements 1 0 Result Diagram: 05/13/17 0620 05/11/17 0518 Objective Remarks GENERAL: This is a elderly, well-developed patient, in no acute distress CARDIOVASCULAR: Regular rate and rhythm without murmurs, gallops, or rubs. RESPIRATORY: Clear to auscultation. Breath sounds equal bilaterally. No wheezes , rales, or rhonchi. GASTROINTESTINAL: Abdomen soft, non-tender, nondistended. Normal active bowel sounds MUSCULOSKELETAL: Extremities without clubbing, cyanosis, or edema. NEURO: Alert & Oriented x4 to person, place, time, situation. Moves all ext x4 A/P Problem List: (1) UTI (urinary tract infection) ICD Code: N39.0 - Urinary tract infection, site not specified Status: Acute Plan: With resolving sepsis, Escherichia coli UTI responding to aztreonam/Cipro ID consult appreciated (2) Sepsis ICD Code: A41.9 - Sepsis, unspecified organism Status: Acute Plan: Resolved (3) Bacteremia ICD Code: R78.81 - Bacteremia Status: Acute Plan: Continue aztreonam IV for now and follow up for clearance and bacterial cultures (4) Diarrhea ICD Code: R19.7 - Diarrhea, unspecified Status: Acute Plan: Resolved (5) Multiple myeloma ICD Code: C90.00 - Multiple myeloma not having achieved remission Plan: Patient follows up with Dr. Ann, systemic therapy has been on hold and she will follow-up with Dr. Espinosa once she is discharged (6) Pancytopenia ICD Code: D61.818 - Other pancytopenia Plan: Resolving Discharge Planning Home one to 2 days pending progress and clearance of bacteremia Marysol Mcmullen MD May 13, 2017 12:53
[2017-05-13 14:10] LABS: BILIRUBIN, URINE NEG (NEG); BLOOD, URINE SMALL (NEG); GLUCOSE,URINE NEG (NEG); KETONE, URINE NEG (NEG); NITRITE,URINE NEG (NEG); URINE COLOR YELLOW (YELLW/STRAW); URINE LEUKOCYTE ESTERASE NEG (NEG)
[2017-05-13 14:37] LABS: BACTERIA, URINE RARE /hpf; MUCUS URINE RARE /lpf (OCC); SQUAMOUS EPITHELIAL CELL URINE 0-5 /hpf (0-5); WBC, URINE 0-2 /hpf (0-5)
[2017-05-13 14:38] LABS: HYALINE CAST, URINE 0-2 /lpf (RARE); TRANSITIONAL EPI CELLS, URINE 0-5 /hpf
[2017-05-13] MEDS ORDERED: PHARMACY ORDERED LAB ONE (14:45)
[2017-05-13 16:00] VITALS: BP 145/95; PULSE 78; RESP 20; TEMP 98.8; O2SAT 97
--- NOTE | 2017-05-13 17:58 | PD.ONC.PN ---
Subjective Subjective Remarks c/o weakness and SON NO more fevers cough BALDERAS Objective Data Date Time Temp Pulse Resp B/P (MAP) Pulse Ox O2 Delivery O2 Flow Rate FiO2 05/13/17 16:00 98.8 78 20 145/95 (112) 97 05/13/17 12:00 99.3 83 20 130/84 (99) 96 05/13/17 10:40 18 05/13/17 08:00 98.6 72 18 130/80 (97) 96 05/13/17 04:00 98.4 76 20 140/78 (98) 94 05/13/17 00:00 98.7 83 20 130/56 (80) 96 05/12/17 20:00 98.7 81 20 126/66 (86) 96 Automatic Cuff 05/13/17 05/13/17 05/13/17 07:00 15:00 23:00 Intake Total 1905 ml 900 ml Balance 1905 ml 900 ml Result Diagram: 05/13/17 0620 05/11/17 0518 Laboratory Results Laboratory Tests Test 05/13/17 06:20 05/13/17 13:50 White Blood Count 2.3 TH/MM3 Red Blood Count 2.62 MIL/MM3 Hemoglobin 8.3 GM/DL Hematocrit 23.8 % Mean Corpuscular Volume 90.7 FL Mean Corpuscular Hemoglobin 31.8 PG Mean Corpuscular Hemoglobin Concent 35.1 % Red Cell Distribution Width 15.3 % Platelet Count 55 TH/MM3 Mean Platelet Volume 7.6 FL Neutrophils (%) (Auto) 73.0 % Lymphocytes (%) (Auto) 9.7 % Monocytes (%) (Auto) 11.9 % Eosinophils (%) (Auto) 5.3 % Basophils (%) (Auto) 0.1 % Neutrophils # (Auto) 1.7 TH/MM3 Lymphocytes # (Auto) 0.2 TH/MM3 Monocytes # (Auto) 0.3 TH/MM3 Eosinophils # (Auto) 0.1 TH/MM3 Basophils # (Auto) 0.0 TH/MM3 CBC Comment AUTO DIFF Differential Comment AUTO DIFF CONFIRMED Platelet Estimate LOW Platelet Morphology Comment NORMAL Urine Color YELLOW Urine Turbidity CLEAR Urine pH 6.0 Urine Specific [place] 1.010 Urine Protein NEG mg/dL Urine Glucose (UA) NEG mg/dL Urine Ketones NEG mg/dL Urine Occult Blood SMALL Urine Nitrite NEG Urine Bilirubin NEG Urine Urobilinogen 0.2 MG/DL Urine Leukocyte Esterase NEG Urine RBC 4-9 /hpf Urine WBC 0-2 /hpf Urine Squamous Epithelial Cells 0-5 /hpf Urine Transitional Epithelial Cells 0-5 /hpf Urine Bacteria RARE /hpf Urine Hyaline Casts 0-2 /lpf Urine Mucus RARE /lpf Urine Yeast (Budding) FEW Microscopic Urinalysis Comment CULT NOT INDICATED Culture Results Microbiology Date/Time Source Procedure Growth Status 05/13/17 10:50 Blood Peripheral Aerobic Blood Culture Pending Received 05/13/17 10:50 Blood Peripheral Anaerobic Blood Culture Pending Received Administered Medications Medications (Trade) Dose Ordered Sig/Jess Route PRN Reason Start Time Stop Time Status Last Admin Dose Admin Sodium Chloride 1,000 ml @ 150 mls/hr Q6H40M IV 05/09/17 20:51 05/13/17 14:42 Sodium Chloride (NS Flush) 2 ml UNSCH PRN IV FLUSH FLUSH AFTER USING IV ACCESS 05/09/17 21:00 05/12/17 04:13 Sodium Chloride (NS Flush) 2 ml BID IV FLUSH 05/09/17 21:00 05/13/17 09:31 Acetaminophen (Tylenol) 650 mg Q4H PRN PO TEMP > 100.4 or headache 05/09/17 21:00 05/11/17 20:53 Ondansetron HCl (Zofran Inj) 4 mg Q6H PRN IVP NAUSEA OR VOMITING 05/09/17 21:00 05/10/17 16:23 Aztreonam 2000 mg/ Sodium Chloride 100 ml @ 200 mls/hr Q8H IV 05/10/17 04:00 05/13/17 13:04 Oseltamivir Phosphate (Tamiflu) 75 mg BID PO 05/10/17 01:15 05/13/17 09:31 Loperamide HCl (Imodium) 2 mg Q6H PRN PO diarrhea 05/10/17 09:00 05/10/17 16:23 Alprazolam (Xanax) 0.5 mg BID PRN PO ANXIETY 05/10/17 09:00 05/13/17 09:40 Aspirin (Aspirin Chew) 81 mg DAILY CHEW 05/10/17 10:00 05/13/17 09:31 Atorvastatin Calcium (Lipitor) 40 mg HS PO 05/10/17 21:00 05/12/17 20:37 Cyclobenzaprine HCl (Flexeril) 10 mg DAILY PO 05/10/17 10:00 05/13/17 09:32 Sertraline HCl (Zoloft) 50 mg DAILY PO 05/10/17 10:00 05/13/17 09:32 Enoxaparin Sodium (Lovenox Inj) 40 mg Q24H SQ 05/10/17 10:00 05/13/17 09:32 Calcium Carbonate (Oscal) 500 mg Q12HR PO 05/10/17 10:00 05/13/17 09:31 Acetaminophen/ Hydrocodone Bitart ([place] 5-325 Mg) 1 tab Q4H PRN PO pain 05/12/17 15:00 05/13/17 14:46 Ciprofloxacin (Cipro) 500 mg Q12HR PO 05/13/17 09:00 05/13/17 09:32 Objective Remarks GENERAL: Well-nourished, well-developed patient. SKIN: Warm and dry. HEAD: Normocephalic. EYES: No scleral icterus. No injection or drainage. NECK: Supple, trachea midline. No JVD or lymphadenopathy. LYMPHATIC: No adenopathy. CARDIOVASCULAR: Regular rate and rhythm without murmurs. RESPIRATORY: Breath sounds equal bilaterally. No accessory muscle use. GASTROINTESTINAL: Abdomen soft, non-tender, nondistended. EXTREMITIES: No cyanosis, or edema. NEUROLOGICAL: No obvious focal deficit. Awake, alert, and oriented x3. Assessment/Plan Assessment Ms. Dudley is a 71-year-old female with a history of lambda light chain multiple myeloma currently on systemic therapy with CyBorD under the care of Dr. Mitchel Espinosa. Prior therapy with Revlimid and dexamethasone in 2011, then Velcade and dexamethasone followed by Velcade maintenance. She relapsed summer started on CyBorD. Admitted with influenza and UTI gm neg bacteremia. Abx per ID Dr Escalera Fever resolved. Pt is Jehovah witness. Will not accept blood products. Please limit iatrogenic blood loss by limiting ordering routine blood tests. d/w pt and . Pt will be FU by Dr Espinosa outpt next week. sign off available prn. Plan Multiple myeloma: Hold CyBorD. 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 Gram-negative bacteremia: Ecoli bacteremia Influenza a positive nasal swab: On Tamiflu. Defer CBC since she will never take transfusion. Monitor clinically. FU with her primary shipping packer Dr. Espinosa. Laura Santillan MD May 13, 2017 17:58
[2017-05-13 20:00] VITALS: BP 149/70; PULSE 87; RESP 20; TEMP 99.6; O2SAT 94
[2017-05-13] MEDS: ATORVASTATIN 40 MG TAB PO SCH (21:08)
[2017-05-13] MEDS: NYSTAT/DIPHENHY/LIDO MOUTHWASH (Adult) 120ML SWISH-SWAL SCH (22:45)
[2017-05-14] VITALS: BP 154/72; PULSE 75; RESP 20; TEMP 98.3; O2SAT 95
[2017-05-14] MEDS: SODIUM CHLOR 0.9% 1000 ML INJ 1,000 ML IV SCH ×4 (02:02→17:18)
[2017-05-14] MEDS: AZTREONAM INJ 2,000 MG in SODIUM CHLORIDE 0.9% INJ 100 ML IV SCH ×3 (05:35→20:35)
[2017-05-14] MEDS: ACETAMINOPHEN 325 MG TAB PO PRN ×2 (05:37→15:23)
[2017-05-14] MEDS: OSELTAMIVIR PHOSPHATE 75 MG CAP PO SCH ×2 (07:45→20:35)
[2017-05-14] MEDS: SERTRALINE HCL 50 MG TAB PO SCH (07:46)
[2017-05-14] MEDS: CIPROFLOXACIN 500 MG TAB PO SCH ×2 (07:46→20:35)
[2017-05-14] MEDS: SODIUM CHLORIDE 0.9% FLUSH 10 ML FLUSH IV FLUSH SCH ×2 (07:46→20:35)
[2017-05-14] MEDS: ASPIRIN 81 MG CHEW TAB CHEW SCH (07:46)
[2017-05-14] MEDS: CYCLOBENZAPRINE HCL 10 MG TAB PO SCH (07:46)
[2017-05-14] MEDS: CALCIUM CARBONATE 1.25 GM (CA 500 MG) TAB PO SCH ×2 (07:46→20:35)
[2017-05-14] MEDS: NYSTAT/DIPHENHY/LIDO MOUTHWASH (Adult) 120ML SWISH-SWAL SCH (07:47)
[2017-05-14 09:16] VITALS: BP 175/82; PULSE 65; RESP 16; TEMP 96.8; O2SAT 95
[2017-05-14] MEDS: ENOXAPARIN SODIUM 40 MG/0.4 ML SYRINGE SQ SCH (11:24)
[2017-05-14 12:06] VITALS: BP 178/81; PULSE 65; RESP 16; TEMP 98.1; O2SAT 96
--- NOTE | 2017-05-14 12:56 | HHI.PR ---
Subjective Remarks Patient seen in follow-up for bacteremia, influenza. Doing better today although she is complaining of a sore throat. Currently repeat blood cultures remain negative Objective Vitals Vital Signs Date Time Temp Pulse Resp B/P (MAP) Pulse Ox O2 Delivery O2 Flow Rate FiO2 05/14/17 12:06 98.1 65 16 178/81 (113) 96 05/14/17 09:16 96.8 65 16 175/82 (113) 95 05/14/17 00:00 98.3 75 20 154/72 (99) 95 05/13/17 20:00 99.6 87 20 149/70 (96) 94 05/13/17 16:00 98.8 78 20 145/95 (112) 97 I/O 05/13/17 05/13/17 05/13/17 05/14/17 05/14/17 05/14/17 07:00 15:00 23:00 07:00 15:00 23:00 Intake Total 1905 ml 900 ml 240 ml Output Total 1000 ml Balance 1905 ml 900 ml -760 ml Intake Oral 120 ml 900 ml 240 ml IV Total 1785 ml Output Urine Total 1000 ml # Voids 3 5 # Bowel Movements 0 0 Result Diagram: 05/13/17 0620 05/11/17 0518 Objective Remarks GENERAL: This is a elderly, well-developed patient, in no acute distress CARDIOVASCULAR: Regular rate and rhythm without murmurs, gallops, or rubs. RESPIRATORY: Clear to auscultation. Breath sounds equal bilaterally. No wheezes , rales, or rhonchi. GASTROINTESTINAL: Abdomen soft, non-tender, nondistended. Normal active bowel sounds MUSCULOSKELETAL: Extremities without clubbing, cyanosis, or edema. NEURO: Alert & Oriented x4 to person, place, time, situation. Moves all ext x4 A/P Problem List: (1) UTI (urinary tract infection) ICD Code: N39.0 - Urinary tract infection, site not specified Status: Acute Plan: With resolving sepsis, Escherichia coli UTI responding to aztreonam/Cipro ID consult appreciated (2) Sepsis ICD Code: A41.9 - Sepsis, unspecified organism Status: Acute Plan: Resolved (3) Bacteremia ICD Code: R78.81 - Bacteremia Status: Acute Plan: Continue aztreonam IV for now and follow up for clearance of bacterial cultures Repeat UA clear (4) Diarrhea ICD Code: R19.7 - Diarrhea, unspecified Status: Acute Plan: Resolved (5) Multiple myeloma ICD Code: C90.00 - Multiple myeloma not having achieved remission Plan: Patient follows up with Dr. Ann, systemic therapy has been on hold and she will follow-up with Dr. Espinosa once she is discharged (6) Pancytopenia ICD Code: D61.818 - Other pancytopenia Plan: Resolving Discharge Planning Home 1 to 2 days pending progress and clearance of bacteremia Marysol Mcmullen MD May 14, 2017 12:56
[2017-05-14] MEDS ORDERED: BENZOCAINE-MENTHOL (SUGAR FREE) 15 MG-3.6 MG LOZENGE BUCCAL PRN (13:00)
[2017-05-14 17:27] VITALS: BP 165/79; PULSE 71; RESP 15; TEMP 98.2; O2SAT 95
[2017-05-14 20:00] VITALS: BP 110/68; PULSE 71; RESP 20; TEMP 99.1; O2SAT 96
[2017-05-14] MEDS: ATORVASTATIN 40 MG TAB PO SCH (20:35)
[2017-05-14] MEDS: ACETAMINOPHEN/HYDROcodone 325 MG/5 MG TAB PO PRN (20:44)
[2017-05-14] MEDS: ALPRAZolam 0.5 MG TAB PO PRN (20:44)
[2017-05-15] VITALS: BP_SYST 110; BP_SYST 156; BP_DIAS 68; BP_DIAS 94; PULSE 72; RESP 20; TEMP 98.2; O2SAT 93
[2017-05-15] MEDS: SODIUM CHLOR 0.9% 1000 ML INJ 1,000 ML IV SCH ×3 (00:10→09:14)
[2017-05-15] MEDS: ACETAMINOPHEN/HYDROcodone 325 MG/5 MG TAB PO PRN ×2 (01:47→09:19)
[2017-05-15] MEDS: AZTREONAM INJ 2,000 MG in SODIUM CHLORIDE 0.9% INJ 100 ML IV SCH ×2 (03:08→12:19)
[2017-05-15 04:00] VITALS: BP 110/68; PULSE 61; RESP 20; TEMP 98.3; O2SAT 94
[2017-05-15 08:00] VITALS: BP 125/70; PULSE 65; RESP 16; TEMP 97.5; O2SAT 95
[2017-05-15] MEDS: SODIUM CHLORIDE 0.9% FLUSH 10 ML FLUSH IV FLUSH SCH (09:00)
[2017-05-15] MEDS: ASPIRIN 81 MG CHEW TAB CHEW SCH (09:14)
[2017-05-15] MEDS: CIPROFLOXACIN 500 MG TAB PO SCH (09:14)
[2017-05-15] MEDS: OSELTAMIVIR PHOSPHATE 75 MG CAP PO SCH (09:14)
[2017-05-15] MEDS: CALCIUM CARBONATE 1.25 GM (CA 500 MG) TAB PO SCH (09:14)
[2017-05-15] MEDS: CYCLOBENZAPRINE HCL 10 MG TAB PO SCH (09:14)
[2017-05-15] MEDS: SERTRALINE HCL 50 MG TAB PO SCH (09:14)
[2017-05-15] MEDS: ENOXAPARIN SODIUM 40 MG/0.4 ML SYRINGE SQ SCH (09:15)
[2017-05-15 13:30] VITALS: BP 120/85; PULSE 67; RESP 16; TEMP 97.6; O2SAT 97
[2017-05-15] MEDS ORDERED: CIPR-9 PO (15:59)
[2017-05-15] MEDS ORDERED: HYDR-3516 PO (16:42)
--- NOTE | 2017-05-15 19:01 | HHI.DS ---
Discharge Summary Admission Date May 09, 2017 at 8:47 pm Discharge Date: May 15, 2017 Admitting Diagnosis influenza, dehydration, SIRs, renal insufficiency (1) UTI (urinary tract infection) ICD Code: N39.0 - Urinary tract infection, site not specified Diagnosis: Principal Status: Acute (2) Sepsis ICD Code: A41.9 - Sepsis, unspecified organism Diagnosis: Principal Status: Acute (3) Bacteremia ICD Code: R78.81 - Bacteremia Diagnosis: Principal Status: Acute (4) Diarrhea ICD Code: R19.7 - Diarrhea, unspecified Diagnosis: Secondary Status: Acute (5) Multiple myeloma ICD Code: C90.00 - Multiple myeloma not having achieved remission Diagnosis: Secondary (6) Pancytopenia ICD Code: D61.818 - Other pancytopenia Diagnosis: Secondary Procedures None Brief History - From Admission This is a 71-year-old female with a history of multiple myeloma currently being treated with chemotherapy, depression, anxiety, and hypertension who presented with fever, chills, and diarrhea. Patient stated that she had chemotherapy on and after chemotherapy she started having watery diarrhea every hour. Patient stated she then had fevers and chills Thursday morning and checked her temperature which she had a fever of 103.8. She denies any abdominal pain nausea or vomiting. Patient also denies any urinary symptoms. Yesterday due to the fevers patient felt short of breath so came to the emergency department. Patient denies any URI symptoms and stated that her shortness of breath breathing has resolved. She stated that she felt that was due to her fevers and chills. Patient feels a lot better now and is asking to go home tomorrow. Her daughter is at the bedside during the interview. All other review of system reviewed and negative. CBC/BMP: 05/13/17 0620 05/11/17 0518 Significant Findings Laboratory Tests Test 05/13/17 06:20 05/13/17 13:50 White Blood Count 2.3 TH/MM3 (4.0-11.0) Red Blood Count 2.62 MIL/MM3 (4.00-5.30) Hemoglobin 8.3 GM/DL (11.6-15.3) Hematocrit 23.8 % (35.0-46.0) Platelet Count 55 TH/MM3 (150-450) Neutrophils (%) (Auto) 73.0 % (16.0-70.0) Monocytes (%) (Auto) 11.9 % (0.0-8.0) Eosinophils (%) (Auto) 5.3 % (0.0-4.0) Neutrophils # (Auto) 1.7 TH/MM3 (1.8-7.7) Lymphocytes # (Auto) 0.2 TH/MM3 (1.0-4.8) Platelet Estimate LOW (NORMAL) Urine Occult Blood SMALL (NEG) Urine RBC 4-9 /hpf (0-3) Urine Bacteria RARE /hpf (NONE) Urine Yeast (Budding) FEW (NONE) PE at Discharge GENERAL: This is a elderly, well-developed patient, in no acute distress CARDIOVASCULAR: Regular rate and rhythm without murmurs, gallops, or rubs. RESPIRATORY: Clear to auscultation. Breath sounds equal bilaterally. No wheezes , rales, or rhonchi. GASTROINTESTINAL: Abdomen soft, non-tender, nondistended. Normal active bowel sounds MUSCULOSKELETAL: Extremities without clubbing, cyanosis, or edema. NEURO: Alert & Oriented x4 to person, place, time, situation. Moves all ext x4 Hospital Course Mrs. Dudley is a 71 year old female. She was admitted secondary to urinary tract infection and sepsis. Flu testing was positive. She also has multiple myeloma at baseline and this is immunocompromise state. Cultures showed positivity for bacteremia with Escherichia coli. She had a urinary tract infection which also had Escherichia coli. Azactam him and Zosyn were provided as treatment. Patient has improved on these treatments. Sensitivities are found for ciprofloxacin. She is transitioned to ciprofloxacin today and medically stable for discharge with 7 more days of treatment on ciprofloxacin, per ID. Patient feels back to baseline and has been ambulating well. Medically cleared and stable for discharge home today. Pt Condition on Discharge: Stable Discharge Disposition: Discharge Home Discharge Time: <= 30 minutes Discharge Instructions DIET: Follow Instructions for: As Tolerated, No Restrictions Activities you can perform: Regular-No Restrictions Follow up Referrals: PCP Follow-up - 2 Weeks New Medications: Ciprofloxacin (Cipro) 500 Mg Tab 500 MG PO Q12HR for Infection, #14 TAB Hydrocodone/Acetaminophen (Hydrocodone-Acetamin 5-325 mg) 5 Mg-325 Mg Tablet 1 TAB PO Q6HR PRN for pain, #40 TAB Continued Medications: Alprazolam (Xanax) 0.5 Mg Tab 0.5 MG PO BID PRN for ANXIETY, TAB 0 Refills Aspirin (Aspirin) 81 Mg Chew 81 MG CHEW DAILY, TAB 0 Refills Atorvastatin (Atorvastatin) 40 Mg Tab 40 MG PO HS for Cholesterol Management, #30 TAB 0 Refills Cyclobenzaprine (Flexeril) 10 Mg Tab 10 MG PO DAILY for Muscle Spasm, #90 TAB 0 Refills Hydrocodone-Acetaminophen ([place]) 5-325 mg Tab 1 TAB PO Q6H PRN for PAIN, #20 TAB 0 Refills Metoprolol Tartrate (Metoprolol Tartrate) 25 Mg Tab 25 MG PO DAILY, #30 TAB 0 Refills Sertraline (Sertraline) 50 Mg Tab 50 MG PO DAILY, #30 TAB 0 Refills Bill Lance MD May 15, 2017 7:01 pm
== END 2017-05-15 16:51 | disposition home or self-care (01) | DRG 871 ==
LOC: PHED 16:03 → PHEDA 20:47 → PH3B 22:07
PROVIDERS: ADMIT Hospitalist; ATTEND Hospitalist
DX: A41.51 Sepsis due to Escherichia coli [E. coli] (principal); D61.810 Antineoplastic chemotherapy induced pancytopenia; C90.00 Multiple myeloma not having achieved remission; E83.51 Hypocalcemia; D80.1 Nonfamilial hypogammaglobulinemia; N39.0 Urinary tract infection, site not specified; T45.1X5A Adverse effect of antineoplastic and immunosuppressive drugs, initial encounter; R19.7 Diarrhea, unspecified; I10 Essential (primary) hypertension; J10.1 Influenza due to other identified influenza virus with other respiratory manifestations; E86.0 Dehydration; N28.9 Disorder of kidney and ureter, unspecified; E87.6 Hypokalemia; M85.80 Other specified disorders of bone density and structure, unspecified site; M19.041 Primary osteoarthritis, right hand; M19.042 Primary osteoarthritis, left hand; E78.5 Hyperlipidemia, unspecified; F32.9 Major depressive disorder, single episode, unspecified; Z85.00 Personal history of malignant neoplasm of unspecified digestive organ; F41.9 Anxiety disorder, unspecified; Z85.828 Personal history of other malignant neoplasm of skin; Z85.40 Personal history of malignant neoplasm of unspecified female genital organ; Z86.718 Personal history of other venous thrombosis and embolism; Z86.711 Personal history of pulmonary embolism; Z87.891 Personal history of nicotine dependence; Z88.0 Allergy status to penicillin
CPT/HCPCS: 71045; 80048; 80053; 81001; 82550; 82784; 83605; 83690; 83735; 84100; 84155; 84484; 85025; 85027; 85610; 85730; 87040; 87077; 87086; 87186; 87205; 87328; 87329; 87493; 87804; 93005; 96361; 96365; J1650; J2175; J2405; J3370; J7030; J7040; J7050

== ENCOUNTER 2017-06-19 19:15 | Emergency (ER) | payer OTHER ==
[~2017-06-19 19:15] MED LIST changes: +ALPR.5 PO; +ASPI-516 CHEW; +ATOR40TA16 PO; -BORT3.5P; +CIPR-9 PO; +CYCL10TA PO; -CYCL1CAP4 PO; -DEXA4TAB PO; +HYDR-3516 PO; -MAG-TAB PO; +METO25TA3 PO; -METO50TA PO; -OXYGENTANK NAS.CANULA; +SERT-132 PO; -ZOCO20TA PO
[2017-06-19 19:21] VITALS: BP 161/85; PULSE 82; RESP 20; TEMP 98.4; O2SAT 97
--- NOTE | 2017-06-19 19:41 | PD ---
HPI Chief Complaint: GI Complaint Time Seen by Provider: 19:38 Travel History International Travel<30 days: No Contact w/Intl Traveler<30days: No Traveled to known affect area: No History of Present Illness HPI Per patient she states that she is active multiple myeloma currently off her chemo and she is to restart it on July. However she comes in complaining of onset of black tarry looking stool since Thursday. She has also had some episodes of nausea for which she took Pepto-Bismol. However she states that she noted the dark tarry stools before she took the Pepto-Bismol. She discussed this with her primary who recommended that she come to the ER for further evaluation. Patient denies any lightheadedness, dizziness,, headache, rash, fever, chest pain, back pain, abdominal pain or flank pain. Primary care is Dr. Oneill Oncologist Dr. Espinosa GI doctor is Dr. HAIR Past medical history significant for hypercholesterolemia, hypertension, UTI, kyphoplasty, diabetes, anxiety, claustrophobia, multiple myeloma, PFSH Past Medical History Arthritis: Yes (HANDS) Blood Disorders: No Anxiety: Yes Cancer: Yes (skin, multiple myeloma) Cardiovascular Problems: Yes High Cholesterol: Yes Chemotherapy: Yes (THREE WEEKS AGO) Diabetes: No (BORDER LINE) Diminished Hearing: No Endocrine: No Gastrointestinal Disorders: No Genitourinary: Yes Immune Disorder: No Implanted Vascular Access Dvce: No Musculoskeletal: Yes Neurologic: No Psychiatric: No Reproductive: No Respiratory: No Immunizations Current: No Radiation Therapy: Yes (2011) Thyroid Disease: No PNEUMOCCOCAL Vaccine (Year): 2 Menopausal: Yes : 3 Para: 3 Past Surgical History Joint Replacement: Yes (LEFT ELBOW PLATE) Neurologic Surgery: Yes Pacemaker: No Other Surgery: No Social History Alcohol Use: Yes (OCCASIONALLY WINE) Tobacco Use: No Substance Use: No Allergies-Medications (Allergen,Severity, Reaction): Coded Allergies: penicillin G (Unverified Allergy, Severe, 06/19/17) Reported Meds & Prescriptions Reported Meds & Active Scripts Active Hydrocodone-Acetamin 5-325 mg (Hydrocodone/Acetaminophen) 5 Mg-325 Mg Tablet 1 Tab PO Q6HR PRN [place] (Hydrocodone-Acetaminophen) 5-325 mg Tab 1 Tab PO Q6H PRN Reported Acyclovir 400 Mg Tab 400 Mg PO BID Xanax (Alprazolam) 0.5 Mg Tab 0.5 Mg PO BID PRN Sertraline (Sertraline HCl) 50 Mg Tab 50 Mg PO DAILY Metoprolol Tartrate 25 Mg Tab 25 Mg PO DAILY Atorvastatin (Atorvastatin Calcium) 40 Mg Tab 40 Mg PO HS Aspirin 81 Mg Chew 81 Mg CHEW DAILY Review of Systems General / Constitutional: No: Fever Eyes: No: Visual changes HENT: No: Headaches Cardiovascular: No: Chest Pain or Discomfort Respiratory: No: Shortness of Breath Gastrointestinal: Positive: Changes in Bowel Habits Genitourinary: No: Dysuria Musculoskeletal: No: Pain Skin: No Rash Neurologic: No: Weakness Psychiatric: No: Depression Endocrine: No: Polydipsia Hematologic/Lymphatic: No: Easy Bruising Physical Exam Narrative GENERAL: SKIN: Warm and dry. HEAD: Atraumatic. Normocephalic. EYES: Pupils equal and round. No scleral icterus. No injection or drainage. ENT: No nasal bleeding or discharge. Mucous membranes pink and moist. NECK: Trachea midline. No JVD. CARDIOVASCULAR: Regular rate and rhythm. RESPIRATORY: No accessory muscle use. Clear to auscultation. Breath sounds equal bilaterally. GASTROINTESTINAL: Abdomen soft, non-tender, nondistended. Trace guaiac positive MUSCULOSKELETAL: Extremities without clubbing, cyanosis, or edema. No obvious deformities. NEUROLOGICAL: Awake and alert. No obvious cranial nerve deficits. Motor grossly within normal limits. Five out of 5 muscle strength in the arms and legs. Normal speech. PSYCHIATRIC: Appropriate mood and affect; insight and judgment normal. Data Data Last Documented VS Vital Signs Date Time Temp Pulse Resp B/P (MAP) Pulse Ox O2 Delivery O2 Flow Rate FiO2 06/19/17 19:21 98.4 82 20 161/85 (110) 97 Orders Orders Complete Blood Count With Diff (06/19/17 19:41) Comprehensive Metabolic Panel (06/19/17 19:41) Lipase (06/19/17 19:41) Prothrombin Time / Inr (Pt) (06/19/17 19:41) Act Partial Throm Time (Ptt) (06/19/17 19:41) Iv Access Insert/Monitor (06/19/17 19:41) Ecg Monitoring (06/19/17 19:41) Oximetry (06/19/17 19:41) NPO (06/19/17 19:41) Sodium Chloride 0.9% Flush (Ns Flush) (06/19/17 19:45) Type And Screen (06/19/17 19:41) Labs Laboratory Tests Test 06/19/17 19:55 White Blood Count 6.6 TH/MM3 Red Blood Count 3.86 MIL/MM3 Hemoglobin 11.8 GM/DL Hematocrit 34.5 % Mean Corpuscular Volume 89.3 FL Mean Corpuscular Hemoglobin 30.6 PG Mean Corpuscular Hemoglobin Concent 34.3 % Red Cell Distribution Width 14.6 % Platelet Count 173 TH/MM3 Mean Platelet Volume 7.1 FL Neutrophils (%) (Auto) 68.2 % Lymphocytes (%) (Auto) 16.1 % Monocytes (%) (Auto) 8.7 % Eosinophils (%) (Auto) 6.7 % Basophils (%) (Auto) 0.3 % Neutrophils # (Auto) 4.5 TH/MM3 Lymphocytes # (Auto) 1.1 TH/MM3 Monocytes # (Auto) 0.6 TH/MM3 Eosinophils # (Auto) 0.4 TH/MM3 Basophils # (Auto) 0.0 TH/MM3 CBC Comment DIFF FINAL Differential Comment Prothrombin Time 10.3 SEC Prothromb Time International Ratio 1.0 RATIO Activated Partial Thromboplast Time 19.5 SEC Blood Urea Nitrogen 15 MG/DL Creatinine 0.80 MG/DL Random Glucose 130 MG/DL Total Protein 7.0 GM/DL Albumin 3.4 GM/DL Calcium Level 9.1 MG/DL Alkaline Phosphatase 56 U/L Aspartate Amino Transf (AST/SGOT) 25 U/L Alanine Aminotransferase (ALT/SGPT) 28 U/L Total Bilirubin 0.4 MG/DL Sodium Level 138 MEQ/L Potassium Level 3.7 MEQ/L Chloride Level 103 MEQ/L Carbon Dioxide Level 28.3 MEQ/L Anion Gap 7 MEQ/L Estimat Glomerular Filtration Rate 71 ML/MIN Lipase 103 U/L [facility] Medical Decision Making Medical Screen Exam Complete: Yes Emergency Medical Condition: Yes Medical Record Reviewed: Yes Differential Diagnosis GI bleed versus hemo-dynamically stable versus unstable Narrative Course CBC is shows normal leukocytosis, no anemia, normal platelet count, no left shift, Coagulation profile is within normal limits Chemistry shows normal electrolytes, normal kidney functions normal liver functions and normal pancreatic functions Patient is A+ Diagnosis Primary Impression: Melena, hemodynamically stable Referrals: Asha Mckenna MD Please make an appointment with Dr. hair to have further follow-up and care Patient Instructions: General Instructions Disposition: 01 DISCHARGE HOME Condition: Stable Jamel Pérez MD Jun 19, 2017 19:41
[2017-06-19] MEDS ORDERED: SODIUM CHLORIDE 0.9% FLUSH 10 ML FLUSH IV FLUSH PRN (19:45)
[2017-06-19] MEDS ORDERED: ACYC400T PO (19:46)
[2017-06-19 20:12] LABS: AUTOMATED NEUTROPHIL # 4.5 TH/MM3 (1.8-7.7); BASOPHIL % 0.3 % (0.0-2.0); EOSINOPHIL # 0.4 TH/MM3 (0-0.4); EOSINOPHIL % 6.7 % (0.0-4.0); HEMATOCRIT 34.5 % (35.0-46.0); HEMOGLOBIN 11.8 GM/DL (11.6-15.3); LYMPH % 16.1 % (9.0-44.0); LYMPHOCYTE # 1.1 TH/MM3 (1.0-4.8); MEAN CELL VOLUME 89.3 FL (80.0-100.0); MEAN CORPUSCULAR HEMOGLOBIN 30.6 PG (27.0-34.0); MEAN CORPUSCULAR HGB CONC 34.3 % (32.0-36.0); MEAN PLATELET VOLUME 7.1 FL (7.0-11.0); MONO % 8.7 % (0.0-8.0); MONOCYTE # 0.6 TH/MM3 (0-0.9); NEUT % 68.2 % (16.0-70.0); PLATELET COUNT 173 TH/MM3 (150-450); RED BLOOD COUNT 3.86 MIL/MM3 (4.00-5.30); RED CELL DISTRIBUTION WIDTH 14.6 % (11.6-17.2); WHITE BLOOD COUNT 6.6 TH/MM3 (4.0-11.0)
[2017-06-19 20:19] LABS: CHLORIDE 103 MEQ/L (98-107); SODIUM (NA) 138 MEQ/L (136-145)
[2017-06-19 20:22] LABS: CALCIUM 9.1 MG/DL (8.5-10.1)
[2017-06-19 20:23] LABS: ALBUMIN 3.4 GM/DL (3.4-5.0); BICARBONATE 28.3 MEQ/L (21.0-32.0); BLOOD UREA NITROGEN 15 MG/DL (7-18); GLUCOSE,RANDOM 130 MG/DL (74-106)
[2017-06-19 20:26] LABS: ALT (GPT) 28 U/L (10-53); AST (GOT) 25 U/L (15-37); GLOMERULAR FILTRATION RATE 71 ML/MIN (>89)
[2017-06-19 20:27] LABS: TOTAL BILIRUBIN ADULT 0.4 MG/DL (0.2-1.0)
[2017-06-19 20:29] LABS: ALKALINE PHOSPHATASE 56 U/L (45-117)
[2017-06-19 20:30] LABS: PROTHROMBIN TIME - PATIENT 10.3 SEC (9.8-11.6)
[2017-06-19 21:50] VITALS: BP 103/63; PULSE 76; RESP 16; O2SAT 95
== END 2017-06-19 21:57 | disposition home or self-care (01) ==
LOC: PHED 19:15
DX: K92.1 Melena (principal); C90.00 Multiple myeloma not having achieved remission; I10 Essential (primary) hypertension; E78.00 Pure hypercholesterolemia, unspecified; E11.9 Type 2 diabetes mellitus without complications; F41.9 Anxiety disorder, unspecified; Z88.0 Allergy status to penicillin; Z85.828 Personal history of other malignant neoplasm of skin; Z79.899 Other long term (current) drug therapy
CPT/HCPCS: 80053; 83690; 85025; 85610; 85730; 86850; 86900; 86901; 99283